=== PATIENT | female | born 1955 | race Caucasian/White ===

== ENCOUNTER 2017-11-11 10:59 | Emergency (ER) | payer OTHER ==
[~2017-11-11] VITALS: Ht 162.6 cm; Wt 72.6 kg
--- NOTE | 2017-11-11 11:22 | NUR ---
DR. FLORES AT BEDSIDE FOR EVAL AND SPEAKING TO FAMILY REGARDING POC.
--- NOTE | 2017-11-11 11:27 | NUR ---
DR. FLORES AT BEDSIDE FOR GTUBE REPLACEMENT.
--- NOTE | 2017-11-11 11:29 | NUR ---
16FR GTUBE PLACED PER DR. FLORES
[2017-11-11] MEDS ORDERED: DIATR MEGLU/DIATRIZOATE SODIUM 30 ML BOTTLE (GASTROGRAPHIN) PO ONE (11:30)
--- NOTE | 2017-11-11 12:27 | NUR ---
Patient discharged to home in stable condition. Written and verbal after care instructions given TO DAUGHTER. DAUGHTER verbalizes understanding of instruction. G TUBE INTACT CONFIRMED VIA XRAY, NAD NOTED ON PT & EN ROUTE BACK TO SNF VIA BLS.
[2017-11-11 12:30] VITALS: BP 120/82
== END 2017-11-11 12:32 ==
LOC: ER 11:04
DX: Z43.1 Encounter for attention to gastrostomy (principal); I10 Essential (primary) hypertension; K21.9 Gastro-esophageal reflux disease without esophagitis
CPT/HCPCS: 43760; 74018; 99284; A4606; Q9963; Z7610

== ENCOUNTER 2017-12-18 12:09 | Inpatient (IN) | payer OTHER ==
[~2017-12-18] VITALS: Ht 162.6 cm; Wt 72.6 kg
--- NOTE | 2017-12-18 12:20 | NUR ---
LEIGHTON LAMB FROM CARE FACILITY DUE TO INCREASED TRACHEAL SECRETIONS. PATIENT IS OBTUNDED. DAUGHTER AT BEDSIDE. VITAL SIGNS CHECKED AND RECORDED. 02 SAT 100% ON COOL AEROSOL. NO FACIAL GRIMACE NOTED. KEPT COMFORTABLE. WILL CONTINUE TO MONITOR ACCORDINGLY.
--- NOTE | 2017-12-18 12:30 | NUR ---
DR. TORRES AT BEDSIDE FOR EVAL.
[2017-12-18 13:23] LABS: BASOPHILS # (AUTO) 0.1 /CMM (0.0-0.2); EOSINOPHILS % (AUTO) 2.4 % (0.0-6.0); HEMATOCRIT 40 % (33-45); HEMOGLOBIN 13.1 g/dL (11.5-14.8); LYMPHOCYTES # (AUTO) 1.6 /CMM (0.8-4.8); LYMPHOCYTES % (AUTO) 20.4 % (20.0-44.0); MEAN CORPUSCULAR HGB CONC 33 g/dl (31.0-36.0); MEAN CORPUSCULAR VOLUME 87 fL (82-100); MONOCYTES # (AUTO) 0.4 /CMM (0.1-1.30); MONOCYTES % (AUTO) 4.8 % (2.0-12.0); NEUTROPHILS # (AUTO) 5.8 /CMM (1.8-8.9); NEUTROPHILS % (AUTO) 71.4 % (43.0-81.0); PLATELET COUNT (AUTO) 215 /CMM (150-450); RED BLOOD CELL COUNT(AUTO) 4.59 MIL/uL (4.0-5.2); WHITE BLOOD COUNT (AUTO) 8.1 K/uL (4.3-11.0)
[2017-12-18] MEDS ORDERED: PIPERACILLIN /TAZOBACTAM 3.375 G in IV D5W 50 ML IV ONE (13:30)
[2017-12-18] MEDS ORDERED: VANCOMYCIN 1 GM in IV D5W 250 ML IV ONE (13:30)
[2017-12-18 13:33] LABS: ALANINE AMINOTRANSFERASE 44 U/L (12-78); ALKALINE PHOSPHATASE 99 U/L (46-116); ASPARTATE AMINOTRANSFERASE 24 U/L (15-37); BILIRUBIN,DIRECT 0.1 mg/dL (0.0-0.2); BILIRUBIN,TOTAL 0.3 mg/dL (0.2-1.0); CALCIUM, SERUM 9.1 mg/dL (8.5-10.1); CARBON DIOXIDE 28 mmol/L (21-32); CHLORIDE 105 mmol/L (98-107); CREATININE 0.3 mg/dL (0.6-1.3); GLUCOSE 117 mg/dL (74-106); POTASSIUM 3.7 mmol/L (3.5-5.1); SODIUM SERUM 142 mmol/L (136-145); TOTAL PROTEIN, SERUM 7.3 g/dL (6.4-8.2); UREA NITROGEN, BLOOD 17 mg/dL (7-18)
[2017-12-18 13:42] LABS: BILIRUBIN,URINE Negative (NEGATIVE); BLOOD, URINE Negative Ery/uL (NEGATIVE); COLOR,URINE Yellow (YELLOW); KETONES,URINE Negative (NEGATIVE); LEUKOCYTE ESTERASE ,URINE Large (NEGATIVE); NITRITE, URINE Negative (NEGATIVE); PROTEIN,URINE Negative (NEGATIVE); UGLUCOSE Negative (NEGATIVE); UROBILINOGEN,URINE 0.2 EU/dL (0.2)
[2017-12-18 13:43] LABS: APPEARANCE,URINE SLIGHTLY CLOUDY (CLEAR)
[2017-12-18 13:44] LABS: BACTERIA,URINE 1+ /HPF (None Seen); SQUAMOUS EPITHELIAL CELL,UR Few /HPF (None Seen)
[2017-12-18] MEDS ORDERED: IV NS 0.9% 1,000 ML IV PRN (13:56)
[2017-12-18] MEDS ORDERED: ACETAMINOPHEN 650 MG/SUPP.RECT RC PRN (14:00)
[2017-12-18] MEDS ORDERED: MAG HYDROX/AL HYDROX/SIMETH 30 ML UDC PO PRN (14:00)
[2017-12-18] MEDS ORDERED: HYDROCODONE/APAP 5/325MG 1 EACH TABLET PO PRN (14:00)
[2017-12-18] MEDS ORDERED: MAGNESIUM HYDROXIDE 30 ML UDC PO PRN (14:00)
[2017-12-18] MEDS ORDERED: PIPERACILLIN /TAZOBACTAM 3.375 G in IV D5W 50 ML IV SCH (14:00)
[2017-12-18] MEDS ORDERED: ALBUTEROL FS 2.5 MG/3 ML VIAL.NEB CONTNEB ONE (14:00)
[2017-12-18] MEDS ORDERED: ONDANSETRON HCL/PF 4 MG/2 ML VIAL IVP PRN (14:00)
[2017-12-18] MEDS ORDERED: MORPHINE SULFATE INJ 4 MG/ML DISP.SYRIN IV PRN (14:00)
[2017-12-18] MEDS ORDERED: LORAZEPAM INJ 2 MG/ML VIAL IV PRN (14:00)
[2017-12-18] MEDS ORDERED: ENOXAPARIN SODIUM 40 MG/0.4 ML DISP.SYRIN SQ SCH (14:30)
--- NOTE | 2017-12-18 15:18 | NUR ---
REPORT GIVEN TO DAGOBERTO PRESCOTT FOR JERMAINE, PATIENT GOING TO ROOM 321-2 T.
[2017-12-18 16:00] VITALS: BP 108/68
--- NOTE | 2017-12-18 16:00 | NUR ---
MENTAL HEALTH COORDINATORMILLING/POLISHING OPERATOR NOTES RECEIVED PT FROM ER WITH DX OF PNA.PT IS OBTUNDED AND OPENS HER EYES ONLY.ON COOL AEROSOL WITH PORTEX 7 O2 AT 5L.ON TELE SR 91.NO S/S OF PAIN OR DISTRESS.SUCTIONED THICK WHITE SECRETIONS FROM TRACH AND MOUTH OFTEN.ORAL CARE RENDERED.ON BEDREST.WITH SACRAL REDNESS ONLY.WITH GT IN PLACE.IV H/L PRESENT ON LT HAND AND RT AC.DAUGHTERS AT BEDSIDE.CALL LIGHT PLACED WITHIN REACH.
[2017-12-18] MEDS ORDERED: FEE PK DOSING 1 MIN EA MC ONE (16:14)
[2017-12-18] MEDS: ENOXAPARIN SODIUM 40 MG/0.4 ML DISP.SYRIN SQ SCH (17:06)
[2017-12-18] MEDS ORDERED: FERR220S6 PO (17:28)
[2017-12-18] MEDS ORDERED: LIDO30AD10 TP (17:28)
[2017-12-18] MEDS ORDERED: LEVO100T9 GT (17:28)
[2017-12-18] MEDS ORDERED: LEVE100S GT (17:28)
[2017-12-18] MEDS ORDERED: HEPA500013 SQ (17:28)
[2017-12-18] MEDS ORDERED: DOCU-141 GT (17:36)
[2017-12-18] MEDS ORDERED: BISA-79 PR (17:36)
[2017-12-18] MEDS ORDERED: FERR220S6 GT (17:36)
[2017-12-18] MEDS ORDERED: NA P133E RC (17:36)
[2017-12-18] MEDS ORDERED: ACET-73 GT (17:46)
[2017-12-18] MEDS ORDERED: AMIN30LI2 GT (17:46)
[2017-12-18] MEDS ORDERED: PHEN32.43 GT (17:46)
[2017-12-18] MEDS ORDERED: OMEP20CA10 GT (17:46)
[2017-12-18] MEDS ORDERED: MULT-594 GT (17:46)
[2017-12-18] MEDS ORDERED: DEXT15DR6 EACHEYE (17:46)
[2017-12-18] MEDS ORDERED: ALBU2.5V38 IH (17:46)
[2017-12-18] MEDS ORDERED: OXYB5TAB11 GT (17:46)
[2017-12-18] MEDS ORDERED: SCOP1PAT17 TD (17:46)
[2017-12-18] MEDS ORDERED: MAGN400O21 GT (17:46)
[2017-12-18] MEDS ORDERED: ASCO-310 GT (17:51)
[2017-12-18] MEDS ORDERED: CRAN1CAP10 GT (17:51)
[2017-12-18] MEDS ORDERED: TOPI25TA49 GT (17:51)
[2017-12-18] MEDS ORDERED: [UNRECOGNIZED DRUG - CODE] GT (17:51)
[2017-12-18] MEDS: JEVITY 1.2 CAL 1,000 ML BOTTLE GT SCH (18:35)
--- NOTE | 2017-12-18 19:10 | NUR ---
RN OPENING NOTES PT OBTUNDED AND TRACH TO COOL AEROSOL. NO APPARENT S/S OF PAIN DISTRESS OR SOB AT THIS TIME. PT HAS IV ON LEFT HAND #20 RUNNING NS@75ML/HR AND IV RIGHT AC #20. PT HAS GTUBE FEEDING JEVITY@44ML/HR. PT TOLERATING WELL. PT TELE MONITORED SINUS RHYTHM. SAFETY PRECAUTIONS IN PLACE, BED IN LOWEST LOCKED POSITION, X3 SIDE RAILS UP. WILL CONTINUE TO MONITOR.
[2017-12-18] MEDS: VALPROIC ACID 250 MG/5 ML UDC GT SCH (19:33)
[2017-12-18] MEDS: PHENOBARBITAL 30 MG TABLET GT SCH (19:33)
[2017-12-18] MEDS: PROSTAT (PYXIS) 30 ML UDC GT SCH (19:33)
--- NOTE | 2017-12-18 19:41 | NUR ---
PT RESTING COMFORTABLE IN BED WITH HOB ELEVATED.ONGOING IVF,NS AND GT FEEDING INFUSING WELL.TOLERATING FEEDING WELL.SUCTIONED SECRETIONS BY MOUTH AND TRACH OFTEN.WILL MONITOR.
--- NOTE | 2017-12-18 19:52 | NUR ---
Received pt on 28% CA, TRACHED, pt is stable no sob noted suctioned mod amounts of tick white sec. pt is stable no sob or distress noted at this time. Addendum: 12/18/17 at 4 by MEJIA HERNANDEZ RT Amended: Links added.
[2017-12-18 20:13] VITALS: BP 136/100
[2017-12-18] MEDS: OXYBUTYNIN CHLORIDE 5 MG TABLET GT SCH (20:30)
[2017-12-18] MEDS: PIPERACILLIN /TAZOBACTAM 3.375 G in IV D5W 100 ML IV SCH (20:37)
[2017-12-19] VITALS: BP 128/76
[2017-12-19] MEDS: VANCOMYCIN 0.75 GM in IV D5W 250 ML IV SCH ×2 (00:57→12:15)
[2017-12-19 04:00] VITALS: BP 114/70
[2017-12-19] MEDS: PIPERACILLIN /TAZOBACTAM 3.375 G in IV D5W 100 ML IV SCH ×3 (04:40→21:15)
[2017-12-19] MEDS: OXYBUTYNIN CHLORIDE 5 MG TABLET GT SCH ×3 (04:42→21:17)
--- NOTE | 2017-12-19 06:42 | NUR ---
RN CLOSING NOTES PT OBTUNDED AND TRACH TO COOL AEROSOL. NO APPARENT S/S OF PAIN DISTRESS OR SOB OVERNIGHT. PT HAS IV ON LEFT HAND #20 RUNNING NS@75ML/HR AND IV RIGHT AC #20. PT HAS GTUBE FEEDING JEVITY@44ML/HR. PT TOLERATING WELL. PT TELE MONITORED SINUS RHYTHM. SAFETY PRECAUTIONS IN PLACE, BED IN LOWEST LOCKED POSITION, X3 SIDE RAILS UP. WILL ENDORSE TO DAY SHIFT FOR CONTINUITY OF CARE.
--- NOTE | 2017-12-19 07:15 | NUR ---
Tele/RN - Assessment Patient obtunded, no s/s of pain, not in any form of distress, on cool aerosol 28% FiO2, trached with Portex 7 secured and intact. Tele shows SR. Will order MALORIE bed for skin management. Pt turned and repositioned q2h and PRN if condition permits. Continue IVF NS at 75 ml/hr to maintain hydration, tolerating Jevity at 44 ml/hr, no residual seen. Fall and aspiration precautions maintained. Will continue to monitor closely.
[2017-12-19 07:20] LABS: BASOPHILS # (AUTO) 0.1 /CMM (0.0-0.2); BASOPHILS % (AUTO) 0.8 % (0.0-2.0); EOSINOPHILS % (AUTO) 1.9 % (0.0-6.0); HEMATOCRIT 38 % (33-45); HEMOGLOBIN 12.3 g/dL (11.5-14.8); LYMPHOCYTES # (AUTO) 1.2 /CMM (0.8-4.8); LYMPHOCYTES % (AUTO) 14.4 % (20.0-44.0); MEAN CORPUSCULAR HGB CONC 33 g/dl (31.0-36.0); MEAN CORPUSCULAR VOLUME 87 fL (82-100); MONOCYTES # (AUTO) 0.5 /CMM (0.1-1.30); MONOCYTES % (AUTO) 6.3 % (2.0-12.0); NEUTROPHILS # (AUTO) 6.2 /CMM (1.8-8.9); NEUTROPHILS % (AUTO) 76.6 % (43.0-81.0); PLATELET COUNT (AUTO) 184 /CMM (150-450); RED BLOOD CELL COUNT(AUTO) 4.35 MIL/uL (4.0-5.2); WHITE BLOOD COUNT (AUTO) 8.1 K/uL (4.3-11.0)
[2017-12-19 07:35] LABS: ALBUMIN 2.5 g/dL (3.4-5.0); BILIRUBIN,TOTAL 0.3 mg/dL (0.2-1.0); CALCIUM, SERUM 8.4 mg/dL (8.5-10.1); CREATININE 0.4 mg/dL (0.6-1.3); PHOSPHORUS 3.7 mg/dL (2.5-4.9); POTASSIUM 3.6 mmol/L (3.5-5.1); TOTAL PROTEIN, SERUM 6.4 g/dL (6.4-8.2)
[2017-12-19 08:00] VITALS: BP 121/70
[2017-12-19] MEDS ORDERED: IV 1/2NS 1000 ML 1,000 ML IV ONE (08:00)
[2017-12-19] MEDS: LEVETIRACETAM SOL (5 ML) 100 MG/ML UDC GT SCH ×3 (08:33→16:43)
[2017-12-19] MEDS: PHENOBARBITAL 30 MG TABLET GT SCH ×2 (08:33→16:44)
[2017-12-19] MEDS: PANTOPRAZOLE 40 MG VIAL IV SCH (08:34)
[2017-12-19] MEDS: TOPIRAMATE 25 MG TABLET GT SCH ×2 (08:34→16:44)
[2017-12-19] MEDS: VALPROIC ACID 250 MG/5 ML UDC GT SCH ×2 (08:34→16:43)
[2017-12-19] MEDS: LEVOTHYROXINE SODIUM 100 MCG TABLET GT SCH (08:34)
[2017-12-19] MEDS: PROSTAT (PYXIS) 30 ML UDC GT SCH (09:00)
--- NOTE | 2017-12-19 09:44 | NUR ---
WOUND CARE CONSULT: PT PRESENTS WITH SACRAL SCARRING, PRESENT ON ADMISSION. PT IS INCONTINENT. ALL SKIN PROTECTION MEASURES DISCUSSED WITH NURSING STAFF. FIRST STEP LOW AIRLOSS MATTRESS ON ORDER. WILL SEE PRN. TALBOT IN AGREEMENT WITH PLAN OF CARE. Addendum: 12/19/17 at 0949 by GILBERT ROBERTS WNDNU Amended: Links added.
[2017-12-19] MEDS: PROSOURCE / PROSTAT (PYXIS) 30 ML UDC GT SCH (10:18)
[2017-12-19 12:00] VITALS: BP 135/93
[2017-12-19] MEDS: ACETYLCYSTEINE 10% SOLN 400 MG/4 ML VIAL NEB SCH (15:21)
[2017-12-19 16:00] VITALS: BP 136/66
[2017-12-19] MEDS: LACTOBACILLUS RHAMNOSUS GG 1 EACH CAP.SPRINK GT SCH (16:44)
[2017-12-19] MEDS: JEVITY 1.2 CAL 1,000 ML BOTTLE GT SCH (16:46)
[2017-12-19] MEDS: Z GUARD REMEDY 2 OZ OINT TP PRN (16:47)
--- NOTE | 2017-12-19 17:05 | NUR ---
Tele/RN - Closing Notes No new events seen, remain afebrile, no s/s of pain, tele shows SR, tolerating tube feeding well. All needs attended and met. Daughter at bedside updated on plan of care. Will continue with current medical management.
--- NOTE | 2017-12-19 19:40 | NUR ---
CLINICAL NURSE OCCUPATIONAL MEDICINE NOTE: PATIENT RESTING IN BED, NO ACUTE DISTRESS NOTED. BREATHING EVEN AND UNLABORED, NO SOB NOTED. COOL AEROSOL IN PLACE. IV TO LEFT HAND AND RAC IN PLACE. G-TUBE IN PLACE, WITH NO RESIDUAL, INFUSING JEVITY AT 44ML/HR. HOB ELEVATED. BED LOCKED AND IN LOWEST POSITION, CALL LIGHT IN REACH. WILL CONTINUE TO MONITOR
[2017-12-19 20:00] VITALS: BP 129/65
[2017-12-19] MEDS: ENOXAPARIN SODIUM 40 MG/0.4 ML DISP.SYRIN SQ SCH (21:17)
[2017-12-20] MEDS: ACETAMINOPHEN 325 MG TABLET PO PRN (00:03)
--- NOTE | 2017-12-20 00:05 | NUR ---
ELECTRONIC ENGINEERING TECHNICIAN NOTE: NOTED PATIENT GRUNTING, PATIENT DAUGHTER AT BEDSIDE AND REQUEST FOR TYLENOL FOR PAIN. TYLENOL 650MG GIVE VIA G-TUBE, WILL CONTINUE TO MONITOR.
[2017-12-20] MEDS: ACETYLCYSTEINE 10% SOLN 400 MG/4 ML VIAL NEB SCH ×3 (00:25→17:23)
[2017-12-20] MEDS: VANCOMYCIN 0.75 GM in IV D5W 250 ML IV SCH ×2 (01:06→14:50)
[2017-12-20] MEDS: OXYBUTYNIN CHLORIDE 5 MG TABLET GT SCH ×3 (04:39→20:45)
[2017-12-20] MEDS: PIPERACILLIN /TAZOBACTAM 3.375 G in IV D5W 100 ML IV SCH ×2 (04:43→12:25)
--- NOTE | 2017-12-20 06:15 | NUR ---
CHILD NURSE NOTE: PATIENT RESTING IN BED, NO ACUTE DISTRESS NOTED. BREATHING EVEN AND UNLABORED, NO SOB NOTED. COOL AEROSOL IN PLACE. IV TO LEFT HAND AND RAC IN PLACE. G-TUBE IN PLACE, WITH NO RESIDUAL, INFUSING JEVITY AT 44ML/HR. HOB ELEVATED. BED LOCKED AND IN LOWEST POSITION, CALL LIGHT IN REACH. WILL ENDORSE TO DAY NURSE TO CONTINUE WITH PLAN OF CARE.
--- NOTE | 2017-12-20 07:15 | NUR ---
Tele/RN - Assessment Patient awake, no s/s of pain, not in any form of distress, on cool aerosol 28% FiO2, trached with Portex 7 secured and intact. Tele shows SR. KCI mattress in place for skin management. All pressure ulcer prevention measures noted to be in place, repositioned per protocol. Patient tolerating TF Jevity at 44 ml/hr, no residual seen. Fall and aspiration precautions maintained. Will continue with current plan of care.
[2017-12-20 07:43] LABS: BASOPHILS % (AUTO) 0.5 % (0.0-2.0); EOSINOPHILS % (AUTO) 3.4 % (0.0-6.0); HEMATOCRIT 35 % (33-45); HEMOGLOBIN 11.6 g/dL (11.5-14.8); LYMPHOCYTES # (AUTO) 1.2 /CMM (0.8-4.8); LYMPHOCYTES % (AUTO) 18.4 % (20.0-44.0); MEAN CORPUSCULAR HGB CONC 34 g/dl (31.0-36.0); MEAN CORPUSCULAR VOLUME 86 fL (82-100); MONOCYTES # (AUTO) 0.4 /CMM (0.1-1.30); MONOCYTES % (AUTO) 6.6 % (2.0-12.0); NEUTROPHILS # (AUTO) 4.6 /CMM (1.8-8.9); NEUTROPHILS % (AUTO) 71.1 % (43.0-81.0); PLATELET COUNT (AUTO) 171 /CMM (150-450); RED BLOOD CELL COUNT(AUTO) 4.02 MIL/uL (4.0-5.2); WHITE BLOOD COUNT (AUTO) 6.5 K/uL (4.3-11.0)
[2017-12-20 07:50] LABS: CALCIUM, SERUM 8.3 mg/dL (8.5-10.1); CREATININE 0.4 mg/dL (0.6-1.3); POTASSIUM 3.8 mmol/L (3.5-5.1)
[2017-12-20] MEDS: IV 1/2NS 1000 ML 1,000 ML IV PRN (07:57)
[2017-12-20 08:00] VITALS: BP 146/101
[2017-12-20] MEDS: PHENOBARBITAL 30 MG TABLET GT SCH ×2 (08:05→16:52)
[2017-12-20] MEDS: PANTOPRAZOLE 40 MG VIAL IV SCH (08:05)
[2017-12-20] MEDS: LEVOTHYROXINE SODIUM 100 MCG TABLET GT SCH (08:05)
[2017-12-20] MEDS: LEVETIRACETAM SOL (5 ML) 100 MG/ML UDC GT SCH ×3 (08:05→16:52)
[2017-12-20] MEDS: TOPIRAMATE 25 MG TABLET GT SCH ×2 (08:05→16:52)
[2017-12-20] MEDS: LACTOBACILLUS RHAMNOSUS GG 1 EACH CAP.SPRINK GT SCH ×2 (08:05→16:52)
[2017-12-20] MEDS: VALPROIC ACID 250 MG/5 ML UDC GT SCH ×2 (08:05→16:52)
[2017-12-20] MEDS: PROSOURCE / PROSTAT (PYXIS) 30 ML UDC GT SCH (08:06)
--- NOTE | 2017-12-20 13:53 | NUR ---
M/S RN - Vancomycin trough Stat vanco trough ordered at 12:28 today. Follow up call made to lab, told me that audioprosthologist is on the way. Pharmacist Mirela notified of the delay in the blood draw.
[2017-12-20 16:00] VITALS: BP 146/101
[2017-12-20] MEDS: JEVITY 1.2 CAL 1,000 ML BOTTLE GT SCH (16:54)
[2017-12-20] MEDS: Z GUARD REMEDY 2 OZ OINT TP PRN (16:55)
--- NOTE | 2017-12-20 17:45 | NUR ---
MS/RN - Closing Notes No significant change in condition seen, remain afebrile, no s/s of pain, not in any form of distress. Continue IVF to maintain hydration, Zosyn and Vanco for PNA and UTI. Daughter at bedside updated on treatment plan. Anticipate discharge tomorrow. Per daughter, do not send patient back to [facility]. manager terminal aware of request. Will continue with current medical management.
--- NOTE | 2017-12-20 19:20 | NUR ---
MS/RN OPENING NOTES PT RECEIVED WITH EYES CLOSED, OPENS TO TOUCH. OBTUNDED. ON COOL AEROSOL 28% AT 5LPM. PORTEX 7. GT FEEDING RUNNING JEVITY AT 44ML/HR. IV TO LEFT HAND RUNNING IVF ORDERED. NO S/S OF INFILTRATION NOTED. HOB ELEVATED FOR ASPIRATION PRECAUTIONS. BED IN LOW/LOCKED POSITION WITH SIDE RAILS UP X3. WILL CONTINUE TO MONITOR
[2017-12-20 20:00] VITALS: BP 111/61
[2017-12-20] MEDS: ENOXAPARIN SODIUM 40 MG/0.4 ML DISP.SYRIN SQ SCH (20:51)
[2017-12-20] MEDS ORDERED: MEROPENEM 1 G in IV NS 0.9% 100 ML IV ONE (21:00)
[2017-12-20] MEDS ORDERED: MEROPENEM 500 MG in IV NS 0.9% 50 ML IV SCH (21:00)
--- NOTE | 2017-12-21 | NUR ---
MS/RN NOTES REPORT GIVEN TO RN, SAMUEL FOR CONTINUITY OF CARE. DAUGHTER AT BEDSIDE REQUESTING PRN TYLENOL FOR PT. RN MADE AWARE, COMPUTER SYSTEM DOWN AT TIME OF REPORT
--- NOTE | 2017-12-21 01:00 | NUR ---
MS RN NOTES GRIMACING,PER DAUGHTER ,SHE'S IN PAIN.MEDICATED WITH TYLENOL 650MG /GT ORDERED. AND PER DAUGHTERS REQUEST.
--- NOTE | 2017-12-21 01:00 | NUR ---
MS RN NOTES RECEIVED REPORT FROM KENYON PEREZ,PATIENT ON BED,ON TRACH TO COOL AEROSOL 28% AT 5L.PORTEX #7.HOB ELEVATED,GT FEEDING OF JEVITY AT 44ML/HR RATE VIA GT,IVF IN PROGRESS 1/2 NS AT 75ML/HR RATE INFUSING VIA IV PUMP ON LEFT HAND.DAUGHTER AT BEDSIDE.WILL CONTINUE TO MONITOR STATUS
[2017-12-21] MEDS: IV 1/2NS 1000 ML 1,000 ML IV PRN ×2 (01:28→23:41)
[2017-12-21] MEDS: ACETAMINOPHEN 325 MG TABLET PO PRN (01:30)
[2017-12-21] MEDS: ACETYLCYSTEINE 10% SOLN 400 MG/4 ML VIAL NEB SCH ×4 (01:30→23:57)
[2017-12-21] MEDS ORDERED: VANCOMYCIN 1 GM in IV D5W 250 ML IV SCH (02:00)
[2017-12-21] MEDS: OXYBUTYNIN CHLORIDE 5 MG TABLET GT SCH ×3 (05:18→21:00)
[2017-12-21] MEDS: MEROPENEM 1 G in IV NS 0.9% 100 ML IV SCH ×3 (05:18→21:00)
--- NOTE | 2017-12-21 06:47 | NUR ---
MS RN NOTES CALM AND QUIET THRU OUT SHIFT,HOB KEPT ELEVATED FOR ASPIRATION PRECAUTION.SUCTION MUCUS NEEDED,FOR AIRWAY CLEARANCE.SACRAL REDNESS TREAT WITH REMEDY FOR SKIN MANAGEMENT.REPOSITION PER PROTOCOL.IN NO ACUTE DISTRESS.WILL ENDORSE TO DAY NURSE FOR JERMAINE.
--- NOTE | 2017-12-21 07:10 | NUR ---
MSRN OPENING NOTES. PT RECEIVED OBTUNDED, EYES OPEN. PT WITH O2 VIA TRACH WITH COOL AEROSOL AT 28% AND 5LPM. PT AUSCULTATED DIMINISHED L R AND UPPER AIRWAY RHONCHI, PT SUCTIONED. PT WITH IVC INTACT AND OPERATIONAL WITH 1/2NS PER RX. PT WITH G.TUBE INTACT AND OPERATIONAL WITH JEVITY AT 44CC/HR. PT REPOSITIONED TO RIGHT OBLIQUE AND OFFLOADED. PT BED IN LOWEST LOCKED POSITION WITH HANDRAILSX4, SPEC MATTRESS AND HOB ELEVATED. WILL CONTINUE POC.
[2017-12-21 07:27] LABS: BASOPHILS % (AUTO) 0.7 % (0.0-2.0); EOSINOPHILS % (AUTO) 3.8 % (0.0-6.0); HEMATOCRIT 34 % (33-45); HEMOGLOBIN 11.3 g/dL (11.5-14.8); LYMPHOCYTES # (AUTO) 1.1 /CMM (0.8-4.8); LYMPHOCYTES % (AUTO) 18.2 % (20.0-44.0); MEAN CORPUSCULAR HGB CONC 33 g/dl (31.0-36.0); MEAN CORPUSCULAR VOLUME 87 fL (82-100); MONOCYTES # (AUTO) 0.4 /CMM (0.1-1.30); MONOCYTES % (AUTO) 7.1 % (2.0-12.0); NEUTROPHILS # (AUTO) 4.1 /CMM (1.8-8.9); NEUTROPHILS % (AUTO) 70.2 % (43.0-81.0); PLATELET COUNT (AUTO) 162 /CMM (150-450); RED BLOOD CELL COUNT(AUTO) 3.94 MIL/uL (4.0-5.2); WHITE BLOOD COUNT (AUTO) 5.9 K/uL (4.3-11.0)
[2017-12-21 07:50] LABS: CREATININE 0.4 mg/dL (0.6-1.3); POTASSIUM 3.6 mmol/L (3.5-5.1)
[2017-12-21 07:56] LABS: CALCIUM, SERUM 8.3 mg/dL (8.5-10.1)
[2017-12-21] MEDS ORDERED: MERO1VIA IV (08:14)
[2017-12-21 08:20] VITALS: BP 125/73
[2017-12-21] MEDS: LEVETIRACETAM SOL (5 ML) 100 MG/ML UDC GT SCH ×3 (08:48→16:34)
[2017-12-21] MEDS: VALPROIC ACID 250 MG/5 ML UDC GT SCH ×2 (08:48→16:34)
[2017-12-21] MEDS: PHENOBARBITAL 30 MG TABLET GT SCH ×2 (08:48→16:34)
[2017-12-21] MEDS: LEVOTHYROXINE SODIUM 100 MCG TABLET GT SCH (08:48)
[2017-12-21] MEDS: LACTOBACILLUS RHAMNOSUS GG 1 EACH CAP.SPRINK GT SCH ×2 (08:48→16:34)
[2017-12-21] MEDS: PANTOPRAZOLE 40 MG VIAL IV SCH (08:48)
[2017-12-21] MEDS: TOPIRAMATE 25 MG TABLET GT SCH ×2 (08:48→16:34)
[2017-12-21] MEDS: PROSOURCE / PROSTAT (PYXIS) 30 ML UDC GT SCH (08:50)
--- NOTE | 2017-12-21 14:53 | NUR ---
MSRN PT WITH FAMILY AT BEDSIDE. PT AND FAMILY WITHOUT CONCERN OR COMPLAINT AT THIS TIME.
[2017-12-21 16:00] VITALS: BP 115/64
[2017-12-21] MEDS: JEVITY 1.2 CAL 1,000 ML BOTTLE GT SCH (16:45)
--- NOTE | 2017-12-21 18:11 | NUR ---
MSRN CLOSING NOTES. PT REMAINS OBTUNDED, EYES OPEN. FAMILY AT BEDSIDE. PT WITH O2 VIA TRACH WITH COOL AEROSOL AT 28% AND 5LPM, MODERATE MUCUS PRODUCTION. PT WITH IVC INTACT AND OPERATIONAL WITH 1/2NS PER RX. PT WITH G.TUBE INTACT AND OPERATIONAL WITH JEVITY AT 50CC/HR. PT REPOSITIONED AND OFFLOADED Q2HR. PT BED IN LOWEST LOCKED POSITION WITH HANDRAILSX4, SPEC MATTRESS AND HOB ELEVATED. ALL DAY NURSE DUTIES ATTENDED TO AND PT AND FAMILY ARE WITHOUT CONCERN OR COMPLAINT AT THIS TIME.
--- NOTE | 2017-12-21 19:15 | NUR ---
MS/RN OPENING NOTES PT RECEIVED, APPEARS COMFORTABLE IN BED. OPENS EYES SPONTANEOUSLY. OBTUNDED. ON COOL AEROSOL VIA TPIECE AT 5LPM. SPO2 MONITOR AT BEDSIDE SHOWING 99%. HOB ELEVATED. GT FEEDING RUNNING ORDERED. IV TO LEFT HAND RUNNING IVF ORDERED. BED IN LOW/LOCKED POSITION, CALL LIGHT IN REACH. BILATERAL UPPER SIDE RAILS IN PLACE. WILL CONTINUE TO MONITOR
[2017-12-21 20:00] VITALS: BP 157/101
[2017-12-21] MEDS: ENOXAPARIN SODIUM 40 MG/0.4 ML DISP.SYRIN SQ SCH (21:02)
[2017-12-22] MEDS: OXYBUTYNIN CHLORIDE 5 MG TABLET GT SCH ×3 (06:10→20:53)
[2017-12-22] MEDS: MEROPENEM 1 G in IV NS 0.9% 100 ML IV SCH ×3 (06:11→20:53)
--- NOTE | 2017-12-22 06:57 | NUR ---
MS/RN CLOSING NOTES PT WITH EYES OPEN. HOB ELEVATED. ON 5LPM O2 VIA TPIECE, COOL AEROSOL 28%. BREATHING EVEN AND UNLABORED. SUCTIONED PRN. SPO2 MONITOR AT BEDSIDE SHOWING 100%. IV TO LEFT HAND INFUSING MERREM AT THIS TIME. GT FEEDING RUNNING ORDERED, NO RESIDUALS NOTED. NO SIGNFICANT CHANGES OVERNIGHT. TURNED/REPOSITIONED Q2H. HEELS OFFLOADED. BED REMAINS IN LOW/LOCKED POSITION WITH CALL LIGHT IN REACH, SIDE RAILS UPX3. WILL ENDORSE TO DAY SHIFT RN JERMAINE.
--- NOTE | 2017-12-22 07:03 | NUR ---
MS RN NOTES PATIENT WITH EYES OPEN, HOB ELEVATED. BREATHING EVEN AND UNLABORED. ON 5LPM O2 VIA TPIECE, COOL AEROSOL 28%. SPO2 MONITOR AT BEDSIDE SHOWING 100%. IV ACCESS PATENT AND INTACT, NO REDNESS OR SWELLING NOTED. GTUBE FEEDING RUNNING ORDERED, NO RESIDUALS NOTED. HEELS OFFLOADED. SAFETY MEASURES IN PLACE. CALL LIGHT WITHIN REACH. WILL CONTINUE TO MONITOR ACCORDINGLY.
[2017-12-22 07:18] LABS: CALCIUM, SERUM 8.5 mg/dL (8.5-10.1); CREATININE 0.4 mg/dL (0.6-1.3); POTASSIUM 4.1 mmol/L (3.5-5.1)
[2017-12-22] MEDS: ALBUTEROL FS 2.5 MG/3 ML VIAL.NEB NEB PRN ×2 (07:57→14:52)
[2017-12-22 08:00] VITALS: BP 117/70
[2017-12-22] MEDS: ACETYLCYSTEINE 10% SOLN 400 MG/4 ML VIAL NEB SCH ×3 (08:04→23:09)
[2017-12-22] MEDS: PHENOBARBITAL 30 MG TABLET GT SCH ×2 (08:31→17:07)
[2017-12-22] MEDS: LACTOBACILLUS RHAMNOSUS GG 1 EACH CAP.SPRINK GT SCH ×2 (08:31→17:07)
[2017-12-22] MEDS: PANTOPRAZOLE 40 MG VIAL IV SCH (08:31)
[2017-12-22] MEDS: TOPIRAMATE 25 MG TABLET GT SCH ×2 (08:31→17:07)
[2017-12-22] MEDS: VALPROIC ACID 250 MG/5 ML UDC GT SCH ×2 (08:31→17:07)
[2017-12-22] MEDS: LEVOTHYROXINE SODIUM 100 MCG TABLET GT SCH (08:31)
[2017-12-22] MEDS: PROSOURCE / PROSTAT (PYXIS) 30 ML UDC GT SCH (08:32)
[2017-12-22] MEDS: LEVETIRACETAM SOL (5 ML) 100 MG/ML UDC GT SCH ×3 (08:32→17:07)
--- NOTE | 2017-12-22 11:12 | NUR ---
MS RN NOTES SEEN AND EVALUATED BY KINA PAREDES WITH NEW ORDERS MADE, NOTED AND CARRIED OUT.
[2017-12-22] MEDS: JEVITY 1.2 CAL 1,000 ML BOTTLE GT SCH (14:57)
[2017-12-22 16:00] VITALS: BP 132/82
[2017-12-22] MEDS: ACETAMINOPHEN 325 MG TABLET PO PRN (17:14)
--- NOTE | 2017-12-22 17:14 | NUR ---
MS RN NOTES NOTED FACIAL GRIMACING, PAIN 2/10. TYLENOL GIVEN. WILL CONTINUE TO MONITOR PATIENT.
--- NOTE | 2017-12-22 19:00 | NUR ---
MS RN NOTES PATIENT WITH EYES OPEN, HOB ELEVATED. BREATHING EVEN AND UNLABORED. NO ACUTE DISTRESS NOTED. NO FACIAL GRIMACING NOTED. ON 5LPM O2 VIA TPIECE, COOL AEROSOL 28%. SPO2 MONITOR AT BEDSIDE SHOWING 100%. IV ACCESS PATENT AND INTACT, NO REDNESS OR SWELLING NOTED. GTUBE FEEDING RUNNING ORDERED, NO RESIDUALS NOTED. MEDICATIONS GIVEN, NO ASE NOTED. NEEDS ATTENDED AND ANTICIPATED. KEPT CLEAN , DRY AND COMFORTABLE. SAFETY MEASURES IN PLACE. CALL LIGHT WITHIN REACH. ENDORSED TO NIGHT NURSE FOR CONTINUITY OF CARE.
--- NOTE | 2017-12-22 19:10 | NUR ---
RN OPENING NOTES RECEIVED PT IN BED, EYES OPEN, NO FACIAL GRIMACING NTOED, TRACH CONNECTED AND IN PLACE WITH COOL AEROSOL, PT WITH GTF RUNNING ORDERED, IVF INFUSING WELL VIA IVP ON LEFT HAND. ALL PATIENT'S NEEDS ATTENDED TO. KEPT PT SAFE AND DRY, CLEAN AND COMFORTABLE. PLACED BED IN LOW POSITION, SAFETY PRECAUTIONS IN PLACE. WILL CONTINUE TO MONITOR PT.
[2017-12-22 20:00] VITALS: BP 119/62
[2017-12-22] MEDS: IV 1/2NS 1000 ML 1,000 ML IV PRN (20:21)
[2017-12-22] MEDS: ENOXAPARIN SODIUM 40 MG/0.4 ML DISP.SYRIN SQ SCH (20:55)
[2017-12-23] MEDS: MEROPENEM 1 G in IV NS 0.9% 100 ML IV SCH ×3 (04:54→20:20)
[2017-12-23] MEDS: OXYBUTYNIN CHLORIDE 5 MG TABLET GT SCH ×3 (04:54→20:20)
[2017-12-23 06:24] LABS: BASOPHILS # (AUTO) 0.1 /CMM (0.0-0.2); BASOPHILS % (AUTO) 0.9 % (0.0-2.0); EOSINOPHILS % (AUTO) 2.9 % (0.0-6.0); HEMATOCRIT 36 % (33-45); LYMPHOCYTES # (AUTO) 1.5 /CMM (0.8-4.8); LYMPHOCYTES % (AUTO) 21.5 % (20.0-44.0); MEAN CORPUSCULAR HGB CONC 33 g/dl (31.0-36.0); MEAN CORPUSCULAR VOLUME 87 fL (82-100); MONOCYTES # (AUTO) 0.6 /CMM (0.1-1.30); MONOCYTES % (AUTO) 8.1 % (2.0-12.0); NEUTROPHILS # (AUTO) 4.8 /CMM (1.8-8.9); NEUTROPHILS % (AUTO) 66.6 % (43.0-81.0); PLATELET COUNT (AUTO) 190 /CMM (150-450); WHITE BLOOD COUNT (AUTO) 7.2 K/uL (4.3-11.0)
[2017-12-23 06:35] LABS: CALCIUM, SERUM 8.4 mg/dL (8.5-10.1); CREATININE 0.3 mg/dL (0.6-1.3); POTASSIUM 4.1 mmol/L (3.5-5.1)
--- NOTE | 2017-12-23 06:41 | NUR ---
RN CLOSING NOTES PATIENT IN BED, ASLEEP BUT EASILY AROUSABLE, NO SOB NOTED, IN NO ACUTE DISTRESS AT THIS TIME, IVF INFUSING WELL ORDERED. GTF RUNNING ORDERED. ALL PATIENT'S NEEDS ATTENDED TO, TURNED AND REPOSITIONED Q2H. NO CHANGES IN CONDITION, PLACED BED IN LOW POSITION AND LOCKED IN PLACE. WILL ENDORSE TO AM SHIFT NURSE FOR CONTINUITY OF CARE.
--- NOTE | 2017-12-23 07:05 | NUR ---
RN OPENING NOTES PATIENT LYING IN BED, EYES CLOSED, EASILY AROUSABLE, HOB ELEVATED. NO SOB NOTED. NO ACUTE DISTRESS . IVF INFUSING WELL ORDERED, NO REDNESS OR SWELLING NOTED. GTUBE FEEDING RUNNING ORDERED. SAFETY MEASURES IN PLACE. CALL LIGHT WITHIN REACH. WILL CONTINUE TO MONITOR ACCORDINGLY.
[2017-12-23] MEDS: ACETYLCYSTEINE 10% SOLN 400 MG/4 ML VIAL NEB SCH ×3 (07:36→23:09)
[2017-12-23] MEDS: IPRATROPIUM NEB FS 0.5 MG/2.5 ML AMPUL.NEB NEB PRN ×2 (07:37→15:34)
[2017-12-23] MEDS: ALBUTEROL FS 2.5 MG/3 ML VIAL.NEB NEB PRN ×2 (07:37→15:34)
[2017-12-23 08:00] VITALS: BP 120/75
[2017-12-23] MEDS: LACTOBACILLUS RHAMNOSUS GG 1 EACH CAP.SPRINK GT SCH ×2 (08:11→16:43)
[2017-12-23] MEDS: PROSOURCE / PROSTAT (PYXIS) 30 ML UDC GT SCH (08:11)
[2017-12-23] MEDS: PANTOPRAZOLE 40 MG VIAL IV SCH (08:11)
[2017-12-23] MEDS: VALPROIC ACID 250 MG/5 ML UDC GT SCH ×2 (08:11→16:43)
[2017-12-23] MEDS: TOPIRAMATE 25 MG TABLET GT SCH ×2 (08:11→16:43)
[2017-12-23] MEDS: LEVOTHYROXINE SODIUM 100 MCG TABLET GT SCH (08:11)
[2017-12-23] MEDS: PHENOBARBITAL 30 MG TABLET GT SCH ×2 (08:11→16:43)
[2017-12-23] MEDS: LEVETIRACETAM SOL (5 ML) 100 MG/ML UDC GT SCH ×3 (08:11→16:43)
[2017-12-23] MEDS: Z GUARD REMEDY 2 OZ OINT TP PRN (09:13)
[2017-12-23] MEDS: JEVITY 1.2 CAL 1,000 ML BOTTLE GT SCH (12:36)
[2017-12-23 16:00] VITALS: BP 126/84
[2017-12-23] MEDS: IV 1/2NS 1000 ML 1,000 ML IV PRN (18:58)
--- NOTE | 2017-12-23 19:00 | NUR ---
RN CLOSING NOTES PATIENT LYING IN BED, EYES OPEN, HOB ELEVATED. NO SOB NOTED. NO ACUTE DISTRESS NOTED . NO FACIAL GRIMACING NOTED. IVF INFUSING WELL ORDERED, NO REDNESS OR SWELLING NOTED. GTUBE FEEDING RUNNING ORDERED. DUE MEDICATIONS GIVEN, NO ASE NOTED. KEPT CLEAN DRY AND COMFORTABLE. REPOSITIONED Q2 HOURS AND PRN. NEEDS ATTENDED AND ANTICIPATED. SAFETY MEASURES IN PLACE. CALL LIGHT WITHIN REACH. ENDORSED TO NIGHT NURSE FOR CONTINUITY OF CARE.
--- NOTE | 2017-12-23 19:05 | NUR ---
RN MS OPENING NOTES RECEIVED PATIENT IN BED, AWAKE EYES OPEN, PATIENT OBTUNDED, HEAD OF BED ELEVATED FOR ASPIRATION PRECAUTIONS, RESPIRATIONS EVEN AND UNLABORED WITH EQUAL RISE AND FALL OF CHEST, ON TRACH WITH COOL AEROSOL, TRACH COLLAR IN PLACE, CONTINUOUS PULSE OX AT BEDSIDE, 02 FLOWING WELL ORDERED SPO2 99% 5L. GTUBE FEEDING JEVITY 1.[address] AND FLOWING ORDERED, GTUBE INTACT IN PLACE DRESSING IS CLEAN AND INTACT.NO RESIDUALS PRESENT UPON ASPIRATION. TOLERATING FEEDING WELL AT THIS TIME. IV SITE TO LEFT HAND #22G INTACT AND PATENT, NO REDNESS NO INFILTRATION PRESET, IVF RUNNING ORDERED. SAFETY PRECAUTIONS IN PLACE, LOW BED AND LOCKED, BED ALARM IN PLACE, ORIENTED TO STAFF. ALL NEEDS ATTENDED AT THIS TIME, WILL CONTINUE TO MONITOR. HEELS FLOATING WITH PILLOWS TOWEL ROLLS TO RIGHT HAND AND OFFLOADED. OFFLOADED TO SIDE FOR SACRAL SKIN MANAGEMENT AND PREVENTION. WILL CONTINUE TO PROVIDE CARE AND REPOSITION.
[2017-12-23 20:00] VITALS: BP 139/86
[2017-12-23] MEDS: ENOXAPARIN SODIUM 40 MG/0.4 ML DISP.SYRIN SQ SCH (20:22)
[2017-12-24] MEDS: MEROPENEM 1 G in IV NS 0.9% 100 ML IV SCH ×3 (04:59→21:01)
[2017-12-24] MEDS: OXYBUTYNIN CHLORIDE 5 MG TABLET GT SCH ×3 (04:59→21:01)
[2017-12-24] MEDS: JEVITY 1.2 CAL 1,000 ML BOTTLE GT SCH (05:26)
--- NOTE | 2017-12-24 06:45 | NUR ---
RN MS CLOSING NOTES PATIENT IN BED AWAKE OBTUNDED, EYES OPEN, RESPIRATIONS EVEN AND UNLABORED WITH EQUAL RISE AND FALL OF CHEST, APPEARS TO BE COMFORTABLE AT THIS TIME, NO FACIAL GRIMACING OR MOANS PRESENT, ON TRAC WITH COOL AEROSOL AT 5L O2, 28% FI02, PORTEX 7, NECK TIE CLEAN AND DRY, TRACH DRESSING CLEAN AND DRY, GTUBE DRESSING CLEAN AND DRY, ON CONTINUOUS PULSE OX SPO2 AT 99%, SUCTIONED NEEDED AND TOLERATED WELL, GTUBE FLUSHED, WITH NO RESIDUALS TOLERATED FEEDING WELL. HEADS OF BED ELEVATED FOR ASPIRATION PRECAUTIONS, REPOSITIONED TO OFFLOAD SACRAL AND HEELS, PILLOW TO OFFLOAD ARMS, AND BETWEEN KNEES, SACRAL DRESSING CHANGED AND REMAINS INTACT, SKIN ALSO REMAINS INTACT TO SACRAL AREA.LEFT HADN IV SIE #22G INTACT AND PATENT, NO REDNESS, NO INFILTRATION PRESENT, IV MERREM ATB CURRENTLY IS RUNNING.SAFETY PRECAUTIONS IN PLACE, ALL NEEDS ATTENDED AT THIS TIME, PATIENT REMAINS COMFORTABLE AND SAFE, WILL CONTINUE TO MONITOR AND ENDORSE TO NEXT SHIFT.
[2017-12-24] MEDS: ACETYLCYSTEINE 10% SOLN 400 MG/4 ML VIAL NEB SCH ×3 (07:23→22:51)
[2017-12-24] MEDS: ALBUTEROL FS 2.5 MG/3 ML VIAL.NEB NEB PRN (07:24)
[2017-12-24 07:40] LABS: CALCIUM, SERUM 8.4 mg/dL (8.5-10.1); CREATININE 0.4 mg/dL (0.6-1.3); POTASSIUM 4.2 mmol/L (3.5-5.1)
[2017-12-24 07:41] LABS: BASOPHILS # (AUTO) 0.1 /CMM (0.0-0.2); BASOPHILS % (AUTO) 0.8 % (0.0-2.0); EOSINOPHILS % (AUTO) 2.5 % (0.0-6.0); HEMATOCRIT 37 % (33-45); HEMOGLOBIN 12.2 g/dL (11.5-14.8); LYMPHOCYTES # (AUTO) 1.2 /CMM (0.8-4.8); LYMPHOCYTES % (AUTO) 16.5 % (20.0-44.0); MEAN CORPUSCULAR HGB CONC 33 g/dl (31.0-36.0); MEAN CORPUSCULAR VOLUME 86 fL (82-100); MONOCYTES # (AUTO) 0.4 /CMM (0.1-1.30); MONOCYTES % (AUTO) 5.4 % (2.0-12.0); NEUTROPHILS # (AUTO) 5.5 /CMM (1.8-8.9); NEUTROPHILS % (AUTO) 74.8 % (43.0-81.0); PLATELET COUNT (AUTO) 192 /CMM (150-450); RED BLOOD CELL COUNT(AUTO) 4.29 MIL/uL (4.0-5.2); WHITE BLOOD COUNT (AUTO) 7.4 K/uL (4.3-11.0)
--- NOTE | 2017-12-24 07:45 | NUR ---
pt received on aerosol via trach with charted settings. airway patent. trach secure via trach tie. pt responsive to pain. suctioned a small amount of thick white secretions. pt receiving breathing tx q8 at this time. pt hob at 30 degrees. suctioned oral secretion from pts mouth Addendum: 12/24/17 at 0746 by CHARISSE BELTRE RT Amended: Links added.
--- NOTE | 2017-12-24 07:52 | NUR ---
MS RN OPENING NOTES RECEIVED PT FROM NIGHTSHIFT RN IN STABLE CONDITION. PT IS OBTUNDENT. OPENS HER EYES SPONTANEOUSLY, AND IS RESPONSIVE TO TACTILE STIMULI. TRACH NOTED TO COOL AEROSOL. SETTING CHECKED FOR ACCURACY (PORTEX #7, FIO2 28%, 02 5L). PT TOLERATING SETTINGS WELL. CONTINUOUS PULSE OX NOTED. PT SATING WELL AT 97%. IV NOTED TO BE PATENT AND INTACT. PT TOLERATING NS INFUSION WELL. GTUBE NOTED TO BE PATENT AND INTACT. NO RESIDUALS ASPIRATED AT THIS TIME. PLACEMENT VERIFIED VIA AUSCULTATION. PT TOLERATING GTUBE FEEDINGS WELL. BED IN LOW LOCKED POSITION, SIDE RAILS UP X3, CALL LIGHT WITHIN REACH, BED ALARM ON. WILL CONTINUE TO MONITOR
[2017-12-24 08:00] VITALS: BP 131/76
--- NOTE | 2017-12-24 08:00 | NUR ---
TUBE FEEDING HELD PER ORDER.PT TOLERATING FEEDINGS WELL. NO RESIDUALS ASPIRATED AT THIS TIME
[2017-12-24] MEDS: PANTOPRAZOLE 40 MG VIAL IV SCH (08:56)
[2017-12-24] MEDS: VALPROIC ACID 250 MG/5 ML UDC GT SCH ×2 (08:56→16:31)
[2017-12-24] MEDS: LACTOBACILLUS RHAMNOSUS GG 1 EACH CAP.SPRINK GT SCH ×2 (08:56→16:31)
[2017-12-24] MEDS: LEVETIRACETAM SOL (5 ML) 100 MG/ML UDC GT SCH ×3 (08:56→16:31)
[2017-12-24] MEDS: PHENOBARBITAL 30 MG TABLET GT SCH ×2 (08:57→16:31)
[2017-12-24] MEDS: LEVOTHYROXINE SODIUM 100 MCG TABLET GT SCH (08:57)
[2017-12-24] MEDS: TOPIRAMATE 25 MG TABLET GT SCH ×2 (08:57→16:31)
[2017-12-24] MEDS: PROSOURCE / PROSTAT (PYXIS) 30 ML UDC GT SCH (08:57)
--- NOTE | 2017-12-24 12:03 | NUR ---
TUBE FEEDING RESUMED ORDERED
[2017-12-24] MEDS: ACETAMINOPHEN 325 MG TABLET PO PRN (12:44)
[2017-12-24 16:00] VITALS: BP 139/77
--- NOTE | 2017-12-24 18:47 | NUR ---
MS RN CLOSING NOTES PT REMAINS STABLE. ALL NEEDS MET THROUGHOUT SHIFT AND ORDERS CARRIED OUT ACCORDINGLY. ALL DUE MEDS GIVEN. WOUND SKIN CARE RENDERED ORDERED. PT CONTINUES TOLERATING IV IN FUSION WELL. NO REDNESS OR SIGNS OF INFILTRATION NOTED TO SITE. SHE CONTINUES TOLERATING GTUBE FEEDINGS AT ORDERED WEIGHT WELL. NO RESIDUALS AT THIS TIME. NO EPISODES OF N/V/D. PT REMAINS STABLE WITH TRACH. PRN TRACH CARE AND SUCTIONING RENDERED. BREATHING REMAINS EVEN AND UNLABORED. PT REPOSITIONED AND TURNED PER HOSPITAL PROTOCOL. SAFETY MEASURES REMAIN IN PLACE. WILL ENDORSE TO NIGHTSHIFT RN FOR JERMAINE
--- NOTE | 2017-12-24 19:25 | NUR ---
RN OPENING NOTES PATIENT RECEIVED IN BED, NOTED TO BE IN NO DISTRESS, RECEIVING IVF ORDERED AND IS INFUSING WELL. GTUBE FEEDING ON GOING, PT'S HOB ELEVATED, ASPIRATION PRECAUTIONS IN PLACE. PT TOLERATING GTF WELL. ALL PATIENT'S NEEDS ATTENDED TO AT THIS TIME. PT'S DAUGHTER AT BEDSIDE. WILL CONTINUE TO MONITOR PT.
[2017-12-24 20:00] VITALS: BP 131/74
[2017-12-24] MEDS: ENOXAPARIN SODIUM 40 MG/0.4 ML DISP.SYRIN SQ SCH (21:04)
[2017-12-25] MEDS: ACETAMINOPHEN 325 MG TABLET PO PRN (02:24)
[2017-12-25] MEDS: IV 1/2NS 1000 ML 1,000 ML IV PRN ×2 (02:32→16:28)
[2017-12-25] MEDS: MEROPENEM 1 G in IV NS 0.9% 100 ML IV SCH ×3 (05:07→20:48)
[2017-12-25] MEDS: OXYBUTYNIN CHLORIDE 5 MG TABLET GT SCH ×3 (05:09→20:48)
[2017-12-25] MEDS: JEVITY 1.2 CAL 1,000 ML BOTTLE GT SCH (05:27)
--- NOTE | 2017-12-25 06:59 | NUR ---
RN CLOSING NOTES PATIENT IN BED, OBTUNDED, IN NO DISTRESS. PT WITH GTF INFUSING WELL WITH NO RESIDUAL NOTED.ALL DUE MEDICATION GIVEN. TURNED AND REPOSITIONED [id number]. ALL PATIENT'S NEEDS ATTENDED TO THROUGHOUT THE SHIFT. IVF INFUSING WELL VIA IVP ON LEFT HAND. MERREM RUNNING EXTENDED INFUSION. ASPIRATION AND SAFETY PRECAUTIONS IN PLACE. WILL ENDORSE TO AM SHIFT NURSE FOR CONTINUITY OFCARE.
[2017-12-25] MEDS: ACETYLCYSTEINE 10% SOLN 400 MG/4 ML VIAL NEB SCH ×3 (07:01→23:08)
--- NOTE | 2017-12-25 07:27 | NUR ---
RT NOTE PT RECEIVED TRACHED ON COOL AEROSOL. NO RESP DISTRESS OR SOB NOTED. BREATHING TX GIVEN, NO ADVERSE REACTIONS NOTED. PT SUCTIONED: SMALL THIN WHITE SECRETIONS. WILL CONT TO MONITOR PT. Addendum: 12/25/17 at 0728 by JANIS YOST RT Amended: Links added.
--- NOTE | 2017-12-25 07:39 | NUR ---
MS RN OPENING NOTES RECEIVED PT FROM NIGHTSHIFT RN IN STABLE CONDITION. PT IS OBTUNDENT. OPENS HER EYES SPONTANEOUSLY, AND IS RESPONSIVE TO TACTILE STIMULI. TRACH NOTED TO COOL AEROSOL. SETTING CHECKED FOR ACCURACY (PORTEX #7, FIO2 28%, 02 5L). PT TOLERATING SETTINGS WELL. CONTINUOUS PULSE OX NOTED. PT SATING WELL AT 100%. IV NOTED TO BE PATENT AND INTACT. PT TOLERATING NS INFUSION WELL. GTUBE NOTED TO BE PATENT AND INTACT. NO RESIDUALS ASPIRATED AT THIS TIME. PLACEMENT VERIFIED VIA AUSCULTATION. PT TOLERATING GTUBE FEEDINGS WELL. BED IN LOW LOCKED POSITION, SIDE RAILS UP X3, CALL LIGHT WITHIN REACH, BED ALARM ON. WILL CONTINUE TO MONITOR
[2017-12-25 08:00] VITALS: BP 136/77
[2017-12-25 08:25] LABS: BASOPHILS # (AUTO) 0.1 /CMM (0.0-0.2); BASOPHILS % (AUTO) 0.9 % (0.0-2.0); EOSINOPHILS % (AUTO) 2.2 % (0.0-6.0); HEMATOCRIT 38 % (33-45); HEMOGLOBIN 12.7 g/dL (11.5-14.8); LYMPHOCYTES # (AUTO) 1.7 /CMM (0.8-4.8); LYMPHOCYTES % (AUTO) 23.1 % (20.0-44.0); MEAN CORPUSCULAR HGB CONC 33 g/dl (31.0-36.0); MEAN CORPUSCULAR VOLUME 86 fL (82-100); MONOCYTES # (AUTO) 0.5 /CMM (0.1-1.30); MONOCYTES % (AUTO) 7.1 % (2.0-12.0); NEUTROPHILS # (AUTO) 4.9 /CMM (1.8-8.9); NEUTROPHILS % (AUTO) 66.7 % (43.0-81.0); PLATELET COUNT (AUTO) 227 /CMM (150-450); RED BLOOD CELL COUNT(AUTO) 4.48 MIL/uL (4.0-5.2); WHITE BLOOD COUNT (AUTO) 7.4 K/uL (4.3-11.0)
[2017-12-25 08:27] LABS: CALCIUM, SERUM 8.8 mg/dL (8.5-10.1); CREATININE 0.4 mg/dL (0.6-1.3); POTASSIUM 4.2 mmol/L (3.5-5.1)
[2017-12-25] MEDS: LEVETIRACETAM SOL (5 ML) 100 MG/ML UDC GT SCH ×3 (09:19→16:29)
[2017-12-25] MEDS: VALPROIC ACID 250 MG/5 ML UDC GT SCH ×2 (09:19→16:29)
[2017-12-25] MEDS: LACTOBACILLUS RHAMNOSUS GG 1 EACH CAP.SPRINK GT SCH ×2 (09:19→16:28)
[2017-12-25] MEDS: LEVOTHYROXINE SODIUM 100 MCG TABLET GT SCH (09:20)
[2017-12-25] MEDS: TOPIRAMATE 25 MG TABLET GT SCH ×2 (09:20→16:29)
[2017-12-25] MEDS: PHENOBARBITAL 30 MG TABLET GT SCH ×2 (09:20→16:28)
[2017-12-25] MEDS: PANTOPRAZOLE 40 MG VIAL IV SCH (09:20)
[2017-12-25] MEDS: PROSOURCE / PROSTAT (PYXIS) 30 ML UDC GT SCH (09:21)
[2017-12-25 16:00] VITALS: BP 135/75
--- NOTE | 2017-12-25 18:46 | NUR ---
MS RN CLOSING NOTES PT REMAINS STABLE. ALL NEEDS MET THROUGHOUT SHIFT AND ORDERS CARRIED OUT ACCORDINGLY. ALL DUE MEDS GIVEN. WOUND SKIN CARE RENDERED ORDERED. PT CONTINUES TOLERATING IV FUSION WELL. NO REDNESS OR SIGNS OF INFILTRATION NOTED TO SITE. SHE CONTINUES TOLERATING GTUBE FEEDINGS AT ORDERED RATE WELL. NO RESIDUALS AT THIS TIME. NO EPISODES OF N/V/D. PT REMAINS STABLE WITH TRACH. PRN TRACH CARE AND SUCTIONING RENDERED. BREATHING REMAINS EVEN AND UNLABORED. PT REPOSITIONED AND TURNED PER HOSPITAL PROTOCOL. SAFETY MEASURES REMAIN IN PLACE. WILL ENDORSE TO NIGHTSHIFT RN FOR JERMAINE
--- NOTE | 2017-12-25 19:20 | NUR ---
RN OPENING NOTES RECEIVED PATIENT IN BED, CONTINUES TO RECEIVE GTF ORDERED, IVF INFUSING WELL ORDERED. PT IS TOLERATING WELL. ALL PATIENT'S NEEDS ATTENDED TO AT THIS TIME. PULSE OX AT BEDSIDE WITH O2 SAT: 99% AND HR 85 BPM. PT SAFE AND DRY, CLEAN AND COMFORTABLE. WILL CONTINUE TO MONITOR PT.
[2017-12-25 20:00] VITALS: BP 125/78
[2017-12-25] MEDS: ENOXAPARIN SODIUM 40 MG/0.4 ML DISP.SYRIN SQ SCH (20:49)
--- NOTE | 2017-12-25 23:33 | NUR ---
PT RCVD POLI'D ON COOL AEROSOL WITH CHARTED SETTINGS. SX DONE. PT TRACH PATENT AND SECURE. NO RESP DISTRESS OR SOB NOTED AT THIS TIME. AMBU BAG AT BEDSIDE. WILL CONTINUE TO MONITOR. Addendum: 12/25/17 at 2334 by JORGE LAGOS RT Amended: Links added.
[2017-12-26] MEDS: MEROPENEM 1 G in IV NS 0.9% 100 ML IV SCH ×3 (04:48→20:47)
[2017-12-26] MEDS: OXYBUTYNIN CHLORIDE 5 MG TABLET GT SCH ×3 (04:48→20:46)
[2017-12-26] MEDS: JEVITY 1.2 CAL 1,000 ML BOTTLE GT SCH (05:33)
--- NOTE | 2017-12-26 06:22 | NUR ---
RN CLOSING NOTES PT IN BED, EYES OPEN, NOTED WITH NO DISTRESS AT THIS TIME. PT ON TRACH WITH COOL AEROSOL, O2 SAT WNL. RECEIVING GTF ORDERED, NO RESIDUAL NOTED AND TOLERATING FEEDING WELL, ASPIRATION PRECAUTION IN PLACE. RECEIVING IVF ORDERED, INFUSING WELL. IV PERIPHERAL LINE INTACT AND PATENT WITH NO S/S OF INFECTION OR INFILTRATION. ALL PATIENT'S NEEDS ATTENDED TO THROUGHOUT THE SHIFT.WILL ENDORSE TO AM SHIFT NURSE FOR CONTINUITY OF CARE.
[2017-12-26 07:05] LABS: BASOPHILS # (AUTO) 0.1 /CMM (0.0-0.2); BASOPHILS % (AUTO) 0.8 % (0.0-2.0); HEMATOCRIT 37 % (33-45); HEMOGLOBIN 12.2 g/dL (11.5-14.8); LYMPHOCYTES # (AUTO) 1.2 /CMM (0.8-4.8); LYMPHOCYTES % (AUTO) 16.7 % (20.0-44.0); MEAN CORPUSCULAR HGB CONC 33 g/dl (31.0-36.0); MEAN CORPUSCULAR VOLUME 86 fL (82-100); MONOCYTES # (AUTO) 0.4 /CMM (0.1-1.30); MONOCYTES % (AUTO) 6.3 % (2.0-12.0); NEUTROPHILS # (AUTO) 5.1 /CMM (1.8-8.9); NEUTROPHILS % (AUTO) 74.2 % (43.0-81.0); PLATELET COUNT (AUTO) 204 /CMM (150-450); RED BLOOD CELL COUNT(AUTO) 4.27 MIL/uL (4.0-5.2); WHITE BLOOD COUNT (AUTO) 6.9 K/uL (4.3-11.0)
[2017-12-26] MEDS: ACETYLCYSTEINE 10% SOLN 400 MG/4 ML VIAL NEB SCH ×3 (07:14→23:53)
[2017-12-26 07:16] LABS: CALCIUM, SERUM 8.3 mg/dL (8.5-10.1); CREATININE 0.4 mg/dL (0.6-1.3); PHOSPHORUS 3.8 mg/dL (2.5-4.9); POTASSIUM 3.7 mmol/L (3.5-5.1)
--- NOTE | 2017-12-26 07:48 | NUR ---
RN OPENING NOTES RECEIVED PT. PT STABLE AND RESTING IN BED. PT OBTUNDED. NO S/S OF RESP DISTRESS/SOB, O2 SAT WNL. TRACH, PORTEX 7, CONNECTED TO COOL AEROSOL WITH O2 AT 5L/M. PT DOES NOT APPEAR TO BE IN PAIN AT THIS TIME. GT IN PLACE AND PATENT, FEEDING OF JEVITY AT 50 CC/HR. IV ACCESS LOCATED ON L HAND 22 GINFUSING 1/2 NS AT 75 ML/HR. PT'S FAMILY TO MAKE SELECTION OF SNF FOR D/C, WILL UPDATE CM. SAFETY MEASURES IN PLACE, CALL LIGHT WITHIN REACH. WILL CONTINUE TO MONITOR.
[2017-12-26 08:00] VITALS: BP 173/96
[2017-12-26] MEDS: TOPIRAMATE 25 MG TABLET GT SCH ×2 (08:25→16:23)
[2017-12-26] MEDS: PHENOBARBITAL 30 MG TABLET GT SCH ×2 (08:25→16:23)
[2017-12-26] MEDS: LEVETIRACETAM SOL (5 ML) 100 MG/ML UDC GT SCH ×3 (08:25→16:23)
[2017-12-26] MEDS: LEVOTHYROXINE SODIUM 100 MCG TABLET GT SCH (08:25)
[2017-12-26] MEDS: LACTOBACILLUS RHAMNOSUS GG 1 EACH CAP.SPRINK GT SCH ×2 (08:25→16:23)
[2017-12-26] MEDS: VALPROIC ACID 250 MG/5 ML UDC GT SCH ×2 (08:26→16:23)
[2017-12-26] MEDS: PROSOURCE / PROSTAT (PYXIS) 30 ML UDC GT SCH (08:26)
[2017-12-26] MEDS: PANTOPRAZOLE 40 MG VIAL IV SCH (08:26)
--- NOTE | 2017-12-26 12:00 | NUR ---
RN NOTES DAUGHTER AT BEDSIDE. FAMILY IS CONT TO SEARCH FOR SUBACUTE PLACEMENT FOR PT POST-D/C. WILL CONTINUE TO MONITOR.
[2017-12-26 16:00] VITALS: BP 163/88
--- NOTE | 2017-12-26 18:33 | NUR ---
RN CLOSING NOTES PT IN BED RESTING. NO S/S OF RESP DISTRESS/SOB. TRACH ON COOL AEROSOL WITH O2 5L/MIN. FAMILY CONTINUING TO DECIDE ON D/C PLACEMENT, CM AWARE. SAFETY MEASURES IN PLACE, CALL LIGHT WITHIN REACH. WILL ENDORSE TO AUTOMOTIVE PROJECT ENGINEER FOR JERMAINE.
--- NOTE | 2017-12-26 19:30 | NUR ---
MS RN NOTES RECEIVED RESTING COMFORTABLY ON BED,ON TRACH TO COOL AEROSOL 28%.PORTEX # 7,O2 AT 5L.SUCTION TRACH NEEDED.ON IVF 1/2 NS AT 75ML/HR RATE INFUSING ON LEFT HAND VIA IV PUMP.ON GT FEEDING JEVITY AT 50ML/HR RATE,NO RESIDUAL AT THIS TIME.ON KCI MATTRESS FOR SKIN MANAGEMENT.ISOLATION PRECAUTION FOR KLEBSELLA SPUTUM.WILL CONTINUE TO MONITOR STATUS.
[2017-12-26] MEDS: IV 1/2NS 1000 ML 1,000 ML IV PRN (19:44)
[2017-12-26 20:00] VITALS: BP 109/63
[2017-12-26] MEDS: ENOXAPARIN SODIUM 40 MG/0.4 ML DISP.SYRIN SQ SCH (20:47)
--- NOTE | 2017-12-26 21:00 | NUR ---
MS RN NOTES DUE MEDS GIVEN PER GT,IV ABX HUNG INFUSING VIA IV PUMP ON LEFT HAND
[2017-12-27] MEDS: OXYBUTYNIN CHLORIDE 5 MG TABLET GT SCH ×3 (04:52→21:32)
[2017-12-27] MEDS: MEROPENEM 1 G in IV NS 0.9% 100 ML IV SCH ×3 (04:52→21:32)
--- NOTE | 2017-12-27 06:56 | NUR ---
MS RN NOTES NO SIGNIFICANT CHANGE IN STATUS.TRACH TO COOL AEROSOL TOLERATED WELL.GT FEEDING TOLERATED WELL.WITH X3 BOWEL MOVEMENT,NO DIARRHEA NOTED.REPOSITION PER PROTOCOL.IN NO ACUTE DISTRESS.ENDORSE TO DAY NURSE FOR JERMAINE.
--- NOTE | 2017-12-27 07:00 | NUR ---
MS RN OPENING NOTE RECEIVED PT IN BED, OBTUNDED. NO SIGNS OF ACUTE DISTRESS NOTED AT THIS TIME. PT HAS TRACH WITH COOL AEROSOL, FIO2 28%, 5LPM BREATHING IS EVEN AND UNLABORED AND TOLERATING WELL. L HAND #22G IV INFUSING ORDERED WITHOUT REDNESS OR SWELLING. PT TOLERATING CURRENT G-TUBE FEEDING WHICH IS SCHEDULED TO BE OFF AT 0800. ALL NEEDS ATTENDED TO, BED IS LOCKED AND IN LOWEST POSITION, SIDE RAILS UP X3, BED ALARM ON, CALL LIGHT WITHIN REACH.
[2017-12-27 08:00] VITALS: BP 138/69
[2017-12-27] MEDS: ACETYLCYSTEINE 10% SOLN 400 MG/4 ML VIAL NEB SCH ×3 (08:15→23:49)
[2017-12-27] MEDS: PROSOURCE / PROSTAT (PYXIS) 30 ML UDC GT SCH (08:33)
[2017-12-27] MEDS: LEVETIRACETAM SOL (5 ML) 100 MG/ML UDC GT SCH ×3 (08:34→16:35)
[2017-12-27] MEDS: TOPIRAMATE 25 MG TABLET GT SCH ×2 (08:34→16:35)
[2017-12-27] MEDS: PANTOPRAZOLE 40 MG VIAL IV SCH (08:34)
[2017-12-27] MEDS: PHENOBARBITAL 30 MG TABLET GT SCH ×2 (08:34→16:35)
[2017-12-27] MEDS: LACTOBACILLUS RHAMNOSUS GG 1 EACH CAP.SPRINK GT SCH ×2 (08:34→16:35)
[2017-12-27] MEDS: VALPROIC ACID 250 MG/5 ML UDC GT SCH ×2 (08:34→16:35)
[2017-12-27] MEDS: LEVOTHYROXINE SODIUM 100 MCG TABLET GT SCH (08:34)
[2017-12-27] MEDS: IV 1/2NS 1000 ML 1,000 ML IV PRN ×2 (10:28→23:48)
[2017-12-27] MEDS: ACETAMINOPHEN 325 MG TABLET PO PRN (12:11)
[2017-12-27] MEDS: JEVITY 1.2 CAL 1,000 ML BOTTLE GT SCH (12:13)
[2017-12-27 16:00] VITALS: BP 123/69
--- NOTE | 2017-12-27 16:00 | NUR ---
MS RN TRACH CARE TRACH CARE PROVIDED WITH RT VELARDE AT THE BEDSIDE PER PROTOCOL. INNER CANNULA PORTEX #7 CHANGED, SKIN CLEANSED WITH NS, DRESSING CHANGED, PT SUCTIONED. SKIN IS INTACT AND WITHOUT REDNESS.
--- NOTE | 2017-12-27 18:26 | NUR ---
MS RN CLOSING NOTE PT IN BED, OBTUNDED. NO SIGNS OF ACUTE DISTRESS AT THIS TIME. PT HAS TRACH WITH COOL AEROSOL, FIO2 %28 AND 5LPM. BREATHING IS EVEN AND UNLABORED. L HAND #22G IV IS INFUSING 1/2 NS @ 75ML/HR WITHOUT REDNESS OR SWELLING. ADLS PROVIDED, PT ASSISTED TO TURN AND REPOSITION Q2H. PT TOLERATED CURRENT G-TUBE ORDERED DURING THE SHIFT. ASPIRATION AND CONTACT PRECAUTIONS MAINTAINED. ALL NEEDS ATTENDED TO, BED IS LOCKED AND IN LOWEST POSITION, SIDE RAILS UP X3, BED ALARM ON, CALL LIGHT WITHIN REACH. WILL ENDORSE TO [employer] LIAISON RN FOR CONTINUITY OF CARE.
--- NOTE | 2017-12-27 19:32 | NUR ---
MS RN NOTES ON BED,OPEN EYES,OBTUNDED.ON TRACH TO COOL AEROSOL 28% AT 5LITERS,PORTEX #7.WITH IVF 1/2 NS AT 75ML/HR RATE,SITE PATENT ON LEFT HAND.INCONTINENT OF URINE.GT FEEDING OF JEVITY AT 50ML/HR RATE.NO RESIDUAL NOTED.ISOLATION PRECAUTION OBSERVED FOR ESBL/KLEBSIELLA SPUTUM.[employer]CI MATTRESS IN USED FOR SKIN MANAGEMENT.REPOSITION PER PROTOCOL.WILL CONTINUE TO MONITOR STATUS.
[2017-12-27 20:00] VITALS: BP 122/76
[2017-12-27] MEDS: ENOXAPARIN SODIUM 40 MG/0.4 ML DISP.SYRIN SQ SCH (21:33)
[2017-12-27 22:00] VITALS: BP 122/76
--- NOTE | 2017-12-27 22:30 | NUR ---
MS RN NOTES SEEN BY YUE CHATTERJEE,MERREM IV DISCONTINUED.
[2017-12-27] MEDS: ALBUTEROL FS 2.5 MG/3 ML VIAL.NEB NEB PRN (23:49)
[2017-12-28] MEDS: ACETAMINOPHEN 325 MG TABLET PO PRN ×3 (00:57→17:34)
--- NOTE | 2017-12-28 00:57 | NUR ---
MS RN NOTES FACIAL GRIMACE NOTED,TYLENOL 650MG/GT GIVEN
[2017-12-28] MEDS: OXYBUTYNIN CHLORIDE 5 MG TABLET GT SCH ×3 (05:15→21:57)
--- NOTE | 2017-12-28 05:30 | NUR ---
MS RN NOTES MORNING CARE RENDERED WITH TAMMIE MERIDA,TOLERATED WELL
--- NOTE | 2017-12-28 06:00 | NUR ---
MS RN NOTES NEW SALINE LOCK #22 PLACE ON RIGHT FOREARM,SAME IVF INFUSING
--- NOTE | 2017-12-28 07:21 | NUR ---
MS RN NOTES NO SIGNIFICANT CHANGE IN STATUS.AWAITING PLACEMENT AT ACUTE REHAB.IN NO ACUTE DISTRESS.ENDORSED TO SUN PRESCOTT FOR JERMAINE
--- NOTE | 2017-12-28 07:25 | NUR ---
MS RN OPENING NOTE RECEIVED PT IN BED, OBTUNDED. NO ACUTE DISTRESS NOTED AT THIS TIME. PT HAS TRACH #7 PORTEX WITH COOL AEROSOL, FIO2 28%, 5LPM. BREATHING IS EVEN AND UNLABORED. R FA #22G IV IS INFUSING ORDERED WITHOUT REDNESS OR SWELLING. PT TOLERATING CURRENT G-TUBE FEEDING. ASPIRATION AND CONTACT PRECAUTIONS MAINTAINED. BED IS LOCKED AND IN LOWEST POSITION, SIDE RAILS UP X3, BED ALARM ON, CALL LIGHT WITHIN REACH.
[2017-12-28] MEDS: ALBUTEROL FS 2.5 MG/3 ML VIAL.NEB NEB PRN ×2 (07:32→15:25)
[2017-12-28] MEDS: ACETYLCYSTEINE 10% SOLN 400 MG/4 ML VIAL NEB SCH ×3 (07:32→23:02)
[2017-12-28 08:00] VITALS: BP 125/73
[2017-12-28] MEDS: PROSOURCE / PROSTAT (PYXIS) 30 ML UDC GT SCH (08:50)
[2017-12-28] MEDS: LEVETIRACETAM SOL (5 ML) 100 MG/ML UDC GT SCH ×3 (08:50→16:48)
[2017-12-28] MEDS: PANTOPRAZOLE 40 MG VIAL IV SCH (08:50)
[2017-12-28] MEDS: VALPROIC ACID 250 MG/5 ML UDC GT SCH ×2 (08:50→16:48)
[2017-12-28] MEDS: LEVOTHYROXINE SODIUM 100 MCG TABLET GT SCH (08:51)
[2017-12-28] MEDS: LACTOBACILLUS RHAMNOSUS GG 1 EACH CAP.SPRINK GT SCH ×2 (08:51→16:48)
[2017-12-28] MEDS: PHENOBARBITAL 30 MG TABLET GT SCH ×2 (08:51→16:48)
[2017-12-28] MEDS: TOPIRAMATE 25 MG TABLET GT SCH ×2 (08:51→16:48)
[2017-12-28 16:00] VITALS: BP 150/80
[2017-12-28] MEDS: IV 1/2NS 1000 ML 1,000 ML IV PRN (16:47)
--- NOTE | 2017-12-28 18:00 | NUR ---
MS RN NEW IV INSERTED R FA IV FOUND TO BE INFILTRATED. NEW IV INSERTED AT THE R HAND #24G AND IS PATENT, CLEAN, DRY AND INTACT.
--- NOTE | 2017-12-28 19:08 | NUR ---
MS RN CLOSING NOTE PT IN BED, OBTUNDED. NO ACUTE DISTRESS NOTED AT THIS TIME. PT HAS TRACH #7 PORTEX WITH COOL AEROSOL, FIO2 28%, 5LPM. BREATHING IS EVEN AND UNLABORED. R HAND #224 IV IS INFUSING ORDERED WITHOUT REDNESS OR SWELLING. PT TOLERATING CURRENT G-TUBE FEEDING. ASPIRATION AND CONTACT PRECAUTIONS MAINTAINED. PRIVATE CAREGIVER AT THE BEDSIDE. ADLS AND WOUND CARE PROVIDED ORDERED, PT ASSISTED TO TURN AND REPOSITION Q2H. BED IS LOCKED AND IN LOWEST POSITION, SIDE RAILS UP X3, BED ALARM ON, CALL LIGHT WITHIN REACH.
--- NOTE | 2017-12-28 19:40 | NUR ---
MS RN NOTE: PATIENT RESTING IN BED, NO ACUTE DISTRESS NOTED, CAREGIVER AT BEDSIDE. BREATHING EVEN AND UNLABORED, NO SOB NOTED. TRACH IN PLACE. IV TO RIGHT HAND IN PLACE. G-TUBE IN PLACE, WITH NO RESIDUAL, INFUSING JEVITY AT 50 ML/HR. HOB ELEVATED. ISOLATION PRECAUTIONS OBSERVED. BED LOCKED AND IN LOWEST POSITION, CALL LIGHT IN REACH. WILL CONTINUE TO MONITOR.
[2017-12-28 20:00] VITALS: BP 146/85
[2017-12-28] MEDS: ENOXAPARIN SODIUM 40 MG/0.4 ML DISP.SYRIN SQ SCH (22:03)
--- NOTE | 2017-12-29 03:00 | NUR ---
MS RN NOTE: PATIENT SLEEPING IN BED, NO ACUTE DISTRESS NOTED. BREATHING EVEN AND UNLABORED, NO SOB NOTED. TRACH IN PLACE. G-TUBE IN PLACE, INFUSING JEVITY AT 50 ML/HR. HOB ELEVATED. ISOLATION PRECAUTIONS OBSERVED. BED LOCKED AND IN LOWEST POSITION, CALL LIGHT IN REACH. WILL CONTINUE TO MONITOR.
[2017-12-29] MEDS: JEVITY 1.2 CAL 1,000 ML BOTTLE GT SCH (05:38)
[2017-12-29] MEDS: OXYBUTYNIN CHLORIDE 5 MG TABLET GT SCH ×3 (05:38→21:53)
--- NOTE | 2017-12-29 06:30 | NUR ---
MS RN NOTE: PATIENT RESTING IN BED, NO ACUTE DISTRESS NOTED. BREATHING EVEN AND UNLABORED, NO SOB NOTED. TRACH IN PLACE. IV TO RIGHT HAND IN PLACE ACCIDENTALLY GOT PULLED OUT WHEN BEING CHANGED. WILL TRY TO START A NEW IV SITE. G-TUBE IN PLACE, INFUSING JEVITY AT 50 ML/HR. HOB ELEVATED. ISOLATION PRECAUTIONS OBSERVED. BED LOCKED AND IN LOWEST POSITION, CALL LIGHT IN REACH. WILL ENDORSE TO DAY NURSE TO CONTINUE WITH PLAN OF CARE.
--- NOTE | 2017-12-29 07:25 | NUR ---
RN OPENING NOTES RECEIVED PT. IN BED OBTUNDED NON VERBAL, PT. CAN BLINK EYES. BREATHING EVENLY WITH A TRACHEOSTOMY ON OXYGEN, PORTEX SIZE 7. NO S/S OF ACUTE DISTRESS. IV FLUIDS RUNNING AT 75 ML/HR. G TUBE FEEDING RUNNING AT 50 ML/HR. BED IS IN LOWEST, AND LOCKED POSITION. 2 SIDE RAILS UP, AND INSTRUCTED PT. TO USE CALL LIGHT FOR ASSISTANCE. ALL NEEDS MET. WILL CONTINUE TO ASSESS AND MONITOR.
[2017-12-29] MEDS: ACETYLCYSTEINE 10% SOLN 400 MG/4 ML VIAL NEB SCH ×3 (07:55→23:58)
[2017-12-29 08:00] VITALS: BP 107/69
[2017-12-29] MEDS: PANTOPRAZOLE 40 MG VIAL IV SCH (09:34)
[2017-12-29] MEDS: LEVETIRACETAM SOL (5 ML) 100 MG/ML UDC GT SCH ×3 (09:35→17:36)
[2017-12-29] MEDS: PROSOURCE / PROSTAT (PYXIS) 30 ML UDC GT SCH (09:36)
[2017-12-29] MEDS: VALPROIC ACID 250 MG/5 ML UDC GT SCH ×2 (09:36→17:36)
[2017-12-29] MEDS: TOPIRAMATE 25 MG TABLET GT SCH ×2 (09:37→17:36)
[2017-12-29] MEDS: LACTOBACILLUS RHAMNOSUS GG 1 EACH CAP.SPRINK GT SCH ×2 (09:37→17:36)
[2017-12-29] MEDS: LEVOTHYROXINE SODIUM 100 MCG TABLET GT SCH (09:37)
[2017-12-29] MEDS: PHENOBARBITAL 30 MG TABLET GT SCH ×2 (09:37→17:36)
[2017-12-29] MEDS: ACETAMINOPHEN 325 MG TABLET PO PRN ×2 (09:39→17:36)
[2017-12-29] MEDS: IV 1/2NS 1000 ML 1,000 ML IV PRN (09:43)
[2017-12-29 16:00] VITALS: BP 133/69
--- NOTE | 2017-12-29 19:45 | NUR ---
MS RIDGE INITIAL NOTES RECEIVED PT IN BED LYING AWAKE WITH TRACH POTRX #7 FIO2 285 AT 5 LITERS /PM. NO SIGNS OF ANY ACUTE DISTRESS NOTED , WITH G-TUBE FEEDING JEVITY AT 50ML/HR NO RESIDUAL NOTED AT THIS TIME. SHE ALSO HAVE IVF 1/2 NS AT 75ML/HR INFUSING ON HER LEFT HAND. NO REDNESS NOTED. ON SPECIAL MATTRESS WITH SIDE RAILS X2 UP. SKIN WARM AND DRY TO TOUCH. REPOSITION PT FOR COMFORT AND ON SEMI FOWLERS POSITION. ASPIRATION AND ISOLATION PRECAUTION SPUTUM IMPLEMENTED AND OBSERVED. KEPT HER WARM AND COMFORTABLE AT ALL TIMES WILL CONTINUE MONITORING.
--- NOTE | 2017-12-29 19:45 | NUR ---
RN CLOSING NOTES PT. IS IN BED OBTUNDED, NON VERBAL, AND CAN BLINK EYES. BREATHING EVENLY WITH A TRACHEOSTOMY ON OXYGEN, PORTEX SIZE 7. NO S/S OF ACUTE DISTRESS. IV FLUIDS RUNNING AT 75 ML/HR. G TUBE FEEDING RUNNING AT 50 ML/HR. BED IS IN LOWEST, AND LOCKED POSITION. 2 SIDE RAILS UP, AND INSTRUCTED PT. TO USE CALL LIGHT FOR ASSISTANCE. ALL NEEDS MET. WILL ENDORSE REPORT TO NURSE.
[2017-12-29 20:00] VITALS: BP 115/60
[2017-12-29] MEDS: ENOXAPARIN SODIUM 40 MG/0.4 ML DISP.SYRIN SQ SCH (21:58)
--- NOTE | 2017-12-29 22:00 | NUR ---
MS HVAC SPECIALIST NOTES ROUTINE MEDS GIVEN MALDONADO G-TUBE, NO ASPIRATION NOTED. BED BATH ALSO RENDERED WITH THE HELPED OF TRADING FLOOR OPERATOR AND REMEDY Z=GUARD APPLIED TO AFFECTED AREA. REPOSITION PT FOR COMFORT. KEPT HER WARM AND COMFORTABLE AT ALL TIMES. FAMILY AT THE BEDSIDE. WILL CONTINUE MONITORING.
[2017-12-29] MEDS ORDERED: Z GUARD REMEDY 4 OZ OINT TP ONE (22:01)
[2017-12-30] MEDS: OXYBUTYNIN CHLORIDE 5 MG TABLET GT SCH ×3 (05:38→20:03)
[2017-12-30] MEDS: IV 1/2NS 1000 ML 1,000 ML IV PRN ×2 (05:39→20:56)
[2017-12-30] MEDS: JEVITY 1.2 CAL 1,000 ML BOTTLE GT SCH (05:51)
[2017-12-30] MEDS: Z GUARD REMEDY 2 OZ OINT TP PRN (06:31)
--- NOTE | 2017-12-30 07:10 | NUR ---
RN OPENING NOTES RECEIVED PT. IN BED OBTUNDED NON VERBAL, PT. CAN BLINK EYES. BREATHING EVENLY WITH A TRACHEOSTOMY ON OXYGEN, PORTEX SIZE 7. NO S/S OF ACUTE DISTRESS. IV FLUIDS RUNNING AT 75 ML/HR. G TUBE FEEDING RUNNING AT 50 ML/HR. BED IS IN LOWEST, AND LOCKED POSITION. 2 SIDE RAILS UP. WILL CONTINUE TO ASSESS AND MONITOR.
--- NOTE | 2017-12-30 07:30 | NUR ---
MS FRAME STRAIGHTENER CLOSING NOTES PT STABLE MALDONADO THE NIGHT. ALL DUE MEDS GIVEN AND ALL NEEDS MET. NO SIGNS OF ANY ACUTE DISTRESS NOTED. MALDONADO THE NIGHT. SUCTIONED NEEDED. REPOSITION HER FOR COMFORT AFTER SPONGE BATH RENDERED. G-TUBE FEEDING TOLERATED WELL NO ASPIRATION NOTED. RESIDUAL 1 ML NOTED. IVF STILL INFUSING ON HER LEFT HAND PATENT AND INTAC. KEPT HER WARM AND COMFORTABLE AT ALL TIMES ENDORSE.
[2017-12-30] MEDS: ACETYLCYSTEINE 10% SOLN 400 MG/4 ML VIAL NEB SCH ×3 (07:33→23:06)
[2017-12-30 08:00] VITALS: BP 140/90
[2017-12-30] MEDS: VALPROIC ACID 250 MG/5 ML UDC GT SCH ×2 (08:45→17:20)
[2017-12-30] MEDS: PANTOPRAZOLE 40 MG VIAL IV SCH (08:45)
[2017-12-30] MEDS: LACTOBACILLUS RHAMNOSUS GG 1 EACH CAP.SPRINK GT SCH ×2 (08:45→17:20)
[2017-12-30] MEDS: LEVETIRACETAM SOL (5 ML) 100 MG/ML UDC GT SCH ×3 (08:45→17:20)
[2017-12-30] MEDS: PHENOBARBITAL 30 MG TABLET GT SCH ×2 (08:46→17:20)
[2017-12-30] MEDS: LEVOTHYROXINE SODIUM 100 MCG TABLET GT SCH (08:46)
[2017-12-30] MEDS: TOPIRAMATE 25 MG TABLET GT SCH ×2 (08:46→17:20)
[2017-12-30] MEDS: PROSOURCE / PROSTAT (PYXIS) 30 ML UDC GT SCH (09:54)
[2017-12-30] MEDS: ACETAMINOPHEN 325 MG TABLET PO PRN (15:11)
[2017-12-30 16:00] VITALS: BP 120/65
--- NOTE | 2017-12-30 16:04 | NUR ---
PT RCVD TRACH'D ON COOL AEROSOL WITH CHARTED SETTINGS. HHN TX GIVEN IN-LINE AND NO ADVERSE REACTION NOTED. SX DONE. PT TRACH PATENT AND SECURE. NO RESP DISTRESS OR SOB NOTED AT THIS TIME. AMBU BAG AT BEDSIDE. WILL CONTINUE TO MONITOR. Addendum: 12/30/17 at 1606 by JORGE LAGOS RT Amended: Links added.
--- NOTE | 2017-12-30 19:10 | NUR ---
MS RN OPENING NOTES Received patient obtunded, nonverbal on Fowlers position on bed. With tracheotomy on O2, portex #7. No s/s of respiratory distress, breathing even and unlabored. With GTF infusing well @ 50ml/hr, abdomen soft, no distention noted. With bilateral upper and lower extremities contractures. Kept clean, dry and comfortable. Will continue to monitor accordingly.
--- NOTE | 2017-12-30 19:20 | NUR ---
PT. IN BED OBTUNDED NON VERBAL, PT. CAN BLINK EYES. BREATHING EVENLY WITH A TRACHEOSTOMY ON OXYGEN, PORTEX SIZE 7. NO S/S OF ACUTE DISTRESS. IV FLUIDS RUNNING AT 75 ML/HR. G TUBE FEEDING RUNNING AT 50 ML/HR. BED IS IN LOWEST, AND LOCKED POSITION. 2 SIDE RAILS UP.PT KEPT CLEAN AND DRY DURING THE SHIFT, REPOSITIONED Q2 H. WILL ENDORSE TO NEXT SHIFT. POSSIBLE D/C TOMORROW
[2017-12-30 20:00] VITALS: BP 133/71
[2017-12-30] MEDS: ENOXAPARIN SODIUM 40 MG/0.4 ML DISP.SYRIN SQ SCH (20:05)
[2017-12-30] MEDS: ALBUTEROL FS 2.5 MG/3 ML VIAL.NEB NEB PRN (23:06)
[2017-12-30] MEDS: IPRATROPIUM NEB FS 0.5 MG/2.5 ML AMPUL.NEB NEB PRN (23:06)
[2017-12-31] MEDS: OXYBUTYNIN CHLORIDE 5 MG TABLET GT SCH ×3 (05:23→21:35)
--- NOTE | 2017-12-31 07:34 | NUR ---
MS RN CLOSING NOTES PATIENT IN STABLE CONDITION. NO NEW UNUSUALITIES NOTED THROUGHOUT THE SHIFT. PATIENT IS BREATHING EVEN AND UNLABORED. NO RESPIRATORY DISTRESS NOTED. ALL NEEDS ATTENDED. ENDORSED TO THE NEXT SHIFT.
--- NOTE | 2017-12-31 07:48 | NUR ---
MS RN NOTES PATIENT RECEIVED RESTING INSIDE ROOM. AWAKE, OBTUNDED, NON-VERBAL. CONTINUE WITH TRACH ON COOL AEROSOL. NO ACUTE DISTRESS. GT INTACT AND IN PLACE. MAINTAINED ASPIRATION PRECAUTIONS. WILL CONTINUE TO MONITOR. BED LOCKED AND IN LOW POSITION. BILATERAL UPPER SIDE RAILS UP AND LOCKED. CALL LIGHT WITHIN EASY REACH
[2017-12-31] MEDS: ACETYLCYSTEINE 10% SOLN 400 MG/4 ML VIAL NEB SCH ×3 (07:58→23:43)
[2017-12-31 08:21] VITALS: BP 146/90
[2017-12-31] MEDS: LEVOTHYROXINE SODIUM 100 MCG TABLET GT SCH (08:43)
[2017-12-31] MEDS: PANTOPRAZOLE 40 MG VIAL IV SCH (08:43)
[2017-12-31] MEDS: PROSOURCE / PROSTAT (PYXIS) 30 ML UDC GT SCH (08:43)
[2017-12-31] MEDS: LACTOBACILLUS RHAMNOSUS GG 1 EACH CAP.SPRINK GT SCH ×2 (08:43→17:24)
[2017-12-31] MEDS: PHENOBARBITAL 30 MG TABLET GT SCH ×2 (08:43→17:24)
[2017-12-31] MEDS: VALPROIC ACID 250 MG/5 ML UDC GT SCH ×2 (08:43→17:23)
[2017-12-31] MEDS: TOPIRAMATE 25 MG TABLET GT SCH ×2 (08:43→17:24)
[2017-12-31] MEDS: LEVETIRACETAM SOL (5 ML) 100 MG/ML UDC GT SCH ×3 (08:46→17:23)
[2017-12-31] MEDS: IV 1/2NS 1000 ML 1,000 ML IV PRN (12:23)
--- NOTE | 2017-12-31 15:00 | NUR ---
RT Pt received trac'd on cool aerosol w charted settings. Shawn is secure and patent w jorge and tai mayen @ [place]. Hhn tx given and pt sx'd w no adverse reactions. No respiratory distress noted t/o shift. Will continue to monitor. Addendum: 12/31/17 at 1828 by VENUS LOMAS RT Amended: Links added.
[2017-12-31 16:00] VITALS: BP 139/79
[2017-12-31] MEDS: ACETAMINOPHEN 325 MG TABLET PO PRN (17:23)
[2017-12-31] MEDS: JEVITY 1.2 CAL 1,000 ML BOTTLE GT SCH (17:31)
--- NOTE | 2017-12-31 18:45 | NUR ---
MS RN NOTES PATIENT RESTING INSIDE ROOM. OBTUNDED, NON-VERBAL. CONTINUE WITH TRACH, ON COOL AEROSOL. NO ACUTE DISTRESS. PATIENT SUCTIONED NEEDED. MAINTAINED ASPIRATION PRECAUTIONS. CONTINUE WITH GTF. GT PATIENT AND IN PLACE. MAINTAINED ISOLATION PRECAUTIONS. WILL ENDORSE TO INCOMING SHIFT FOR JERMAINE. BED LOCKED AND IN LOW POSITION. BILATERAL UPPER SIDE RAILS UP AND LOCKED. CALL LIGHT WITHIN EASY REACH
--- NOTE | 2017-12-31 19:10 | NUR ---
RN OPENING NOTES PT OBTUNDED WITH TRACH AND COOL AEROSOL. NO APPARENT S/S OF PAIN, DISTRESS OR SOB AT THIS TIME. PT HAS JEVITY GT FEEDING RUNNING AT 50ML/HR FOR 20 HOURS. PATIENT TOLERATING FEEDING WELL. PT HAS LEFT HAND #24 IV RUNNING 1/2NS @75ML/HR, INTACT AND PT TOLERATING FLUIDS WELL. PER DAY SHIFT NURSE WAITING FOR INSURANCE VERIFICATION FOR PT PLACEMENT. SAFETY PRECAUTIONS IN PLACE, BED IN LOWEST LOCKED POSITION, X3 SIDE RAILS UP AND CALL LIGHT WITHIN REACH. WILL CONTINUE TO MONITOR.
[2017-12-31 20:00] VITALS: BP 108/59
[2017-12-31] MEDS: ENOXAPARIN SODIUM 40 MG/0.4 ML DISP.SYRIN SQ SCH (21:35)
[2018-01-01] MEDS: IV 1/2NS 1000 ML 1,000 ML IV PRN ×2 (02:33→22:59)
[2018-01-01] MEDS: OXYBUTYNIN CHLORIDE 5 MG TABLET GT SCH ×3 (04:32→21:00)
--- NOTE | 2018-01-01 06:18 | NUR ---
RN CLOSING NOTES PT OBTUNDED/NONVERBAL. PT TRACH TO COOL AEROSOL. NO APPARENT S/S OF PAIN, DISTRESS OR SOB OVERNIGHT. PT HAS GT FEEDING RUNNING JEVITY 1.2 @50ML/HR, 20 HOURS ON AND 4 OFF. PT HAS A LEFT HAND #24 IV INTACT AND RUNNING 1/2NS @75ML/HR. AWAITING POSSIBLE DC TO [facility]. AWAITING INSURANCE VERIFICATION POSSIBLE DC TODAY OR TOMORROW. SAFETY PRECAUTIONS IN PLACE, BED IN LOWEST LOCKED POSITION, WILL ENDORSE TO DAY SHIFT NURSE FOR CONTINUITY OF CARE.
--- NOTE | 2018-01-01 07:54 | NUR ---
MS RN NOTES PATIENT RESTING INSIDE ROOM. OBTUNDED, NON-VERBAL, CONTINUE WITH TRACH ON COOL AEROSOL. NO ACUTE DISTRESS. CONTINUE WITH GTF. GT PATENT AND IN PLACE. MAINTAINED ASPIRATION PRECAUTIONS. HOB ELEVATED AT 45. MAINTAINED ISOLATION PRECAUTIONS. WILL CONTINUE TO MONITOR. BED LOCKED AND IN LOW POSITION. BILATERAL UPPER SIDE RAILS UP AND LOCKED. CALL LIGHT WITHIN EASY REACH
[2018-01-01] MEDS: ACETYLCYSTEINE 10% SOLN 400 MG/4 ML VIAL NEB SCH ×3 (07:55→23:54)
[2018-01-01] MEDS: ALBUTEROL FS 2.5 MG/3 ML VIAL.NEB NEB PRN ×2 (07:55→15:20)
[2018-01-01 08:00] VITALS: BP 127/88
[2018-01-01] MEDS: LEVOTHYROXINE SODIUM 100 MCG TABLET GT SCH (08:53)
[2018-01-01] MEDS: LACTOBACILLUS RHAMNOSUS GG 1 EACH CAP.SPRINK GT SCH ×2 (08:53→17:02)
[2018-01-01] MEDS: TOPIRAMATE 25 MG TABLET GT SCH ×2 (08:53→17:02)
[2018-01-01] MEDS: PHENOBARBITAL 30 MG TABLET GT SCH ×2 (08:53→17:02)
[2018-01-01] MEDS: PANTOPRAZOLE 40 MG VIAL IV SCH (08:53)
[2018-01-01] MEDS: PROSOURCE / PROSTAT (PYXIS) 30 ML UDC GT SCH (08:53)
[2018-01-01] MEDS: LEVETIRACETAM SOL (5 ML) 100 MG/ML UDC GT SCH ×3 (08:53→17:02)
[2018-01-01] MEDS: VALPROIC ACID 250 MG/5 ML UDC GT SCH ×2 (08:53→17:02)
[2018-01-01 16:00] VITALS: BP 126/67
--- NOTE | 2018-01-01 19:14 | NUR ---
MS RN NOTE: RECEIVED PT ON BED, OBTUNDED, NONVERBAL. NO APPARENT DISTRESS NOTED. NO FACIAL GRIMACING OR ANY SIGNS OF PAIN NOTED. ON COOL AEROSOL, NO SOB NOTED. SATURATING WELL. GT INTACT AND PATENT, NO RESIDUAL NOTED AT THIS TIME. IV ON RIGHT HAND #22 INTACT WITH IVF 1/2 NS RUNNING AT 75ML/HR. NO SIGNS/SYMPTOMS OF INFILTRATION NOTED. KEPT CLEAN, DRY AND COMFORTABLE. SAFETY AND FALL PRECAUTIONS OBSERVED AND MAINTAINED. WILL CONTINUE TO MONITOR PT.
--- NOTE | 2018-01-01 19:18 | NUR ---
MS RN NOTES PATIENT RESTING INSIDE ROOM. OBTUNDED, NON-VERBAL. CONTINUE ON TRACH ON COOL AEROSOL. NO ACUTE DISTRESS. NO FACIAL GRIMACE OR INDICATIONS OF PAIN NOTED. CONTINUE WITH GTF AND TOLERATING WELL. GT PATENT AND IN PLACE. MAINTAINED ASPIRATION PRECAUTIONS. PATIENT KEPT CLEAN, DRY AND COMFORTABLE. MAINTAINED ISOLATION PRECAUTIONS. ENDORSED TO INCOMING SHIFT FOR JERMAINE. BED LOCKED AND IN LOW POSITION. BILATERAL UPPER SIDE RAILS UP AND LOCKED. CALL LIGHT WITHIN EASY REACH
[2018-01-01 20:00] VITALS: BP 132/88
[2018-01-01] MEDS: ENOXAPARIN SODIUM 40 MG/0.4 ML DISP.SYRIN SQ SCH (21:00)
[2018-01-01] MEDS: JEVITY 1.2 CAL 1,000 ML BOTTLE GT SCH (21:12)
--- NOTE | 2018-01-01 23:20 | NUR ---
RECEIVED PT FROM THIRD FLOOR IN STABLE CONDITION ACCOMPANIED WITH THE DTR AT THE BED SIDE. PT REMAINED NON- VERBAL. BREATHING EVENLY WITH TRACH IN PLACE. GT IN PLACE . PT WAS CONNECTED TO THE GTF W/ HOB ELEVATED. HOOKED UP TOT HE IV ON THE R HAND . S/B RT AT THE BED SIDE. NO S/S OF PAIN OR DISCOMFORT NOTED. WILL CONT TO MONITOR ,
[2018-01-02] MEDS: OXYBUTYNIN CHLORIDE 5 MG TABLET GT SCH ×3 (05:03→21:14)
[2018-01-02 06:49] LABS: CALCIUM, SERUM 8.4 mg/dL (8.5-10.1); CREATININE 0.3 mg/dL (0.6-1.3); MAGNESIUM 1.9 mg/dL (1.8-2.4); PHOSPHORUS 3.8 mg/dL (2.5-4.9); POTASSIUM 3.6 mmol/L (3.5-5.1)
--- NOTE | 2018-01-02 07:15 | NUR ---
PT IN BED RESTING COMFORTABLY.RESPONSIVE TO TOUCH AND PAINFUL STIMULI. TRACH IN PLACE. BREATHING EVENLY. NO SOB. NO ACUTE EVENT DURING THE NIGHT. NO RESP DISTRESS NOTED. GTF UVALDO WELL. HOB ELEVATED. CLEANED AND DRIED , REPOSITIONED ROUTINELY. BED LOW LOCKED. SRX2. CALL LIGHT WITHIN REACH,. WILL CONT TO MONITOR AND WILL ENDORSE TO AM SHIFT FOR JERMAINE.
[2018-01-02 08:00] VITALS: BP 107/78
[2018-01-02] MEDS: ACETYLCYSTEINE 10% SOLN 400 MG/4 ML VIAL NEB SCH ×3 (08:00→22:52)
[2018-01-02] MEDS: ALBUTEROL FS 2.5 MG/3 ML VIAL.NEB NEB PRN ×2 (08:00→15:13)
--- NOTE | 2018-01-02 08:00 | NUR ---
MS RN NOTES RECEIVED PATIENT ASLEEP IN BED WITH NO DISTRESS NOTED. NO FACIAL GRIMACING OR GROANING TO INDICATE PAIN OR DISCOMFORT. PERIPHERAL IV INTACT AND PATENT. TRACH AND GT INTACT AND PATENT. BED IN LOW LOCK POSITION. WILL CONTINUE TO MONITOR
[2018-01-02] MEDS: LACTOBACILLUS RHAMNOSUS GG 1 EACH CAP.SPRINK GT SCH ×2 (09:32→17:42)
[2018-01-02] MEDS: PHENOBARBITAL 30 MG TABLET GT SCH ×2 (09:32→17:42)
[2018-01-02] MEDS: LEVETIRACETAM SOL (5 ML) 100 MG/ML UDC GT SCH ×3 (09:32→17:43)
[2018-01-02] MEDS: VALPROIC ACID 250 MG/5 ML UDC GT SCH ×2 (09:33→17:43)
[2018-01-02] MEDS: PANTOPRAZOLE 40 MG VIAL IV SCH (09:33)
[2018-01-02] MEDS: TOPIRAMATE 25 MG TABLET GT SCH ×2 (09:33→17:42)
[2018-01-02] MEDS: LEVOTHYROXINE SODIUM 100 MCG TABLET GT SCH (09:33)
[2018-01-02] MEDS: PROSOURCE / PROSTAT (PYXIS) 30 ML UDC GT SCH (09:34)
[2018-01-02] MEDS: IV 1/2NS 1000 ML 1,000 ML IV PRN (14:24)
[2018-01-02 16:00] VITALS: BP 108/64
[2018-01-02] MEDS ORDERED: MEROPENEM 1 G in IV NS 0.9% 100 ML IV SCH (16:00)
[2018-01-02] MEDS: JEVITY 1.2 CAL 1,000 ML BOTTLE GT SCH (17:49)
--- NOTE | 2018-01-02 18:47 | NUR ---
MS RN NOTES PATIENT AWAKE IN BED AND REMAINS IN STABLE CONDITION. FAMILY AT BEDSIDE. NO FACIAL GRIMACING OR GROANING TO INDICATE PAIN OR DISCOMFORT. ALL DUE MEDS GIVEN ORDERED WITH NO ASE NOTED. PERIPHERAL IV REMAINS INTACT AND PATENT. GTF JEVITY AT 50ML/HR AND TOLERATING WELL. BED IN LOW LOCK SETTING. CALL LIGHT WITHIN REACH. WILL ENDORSE TO ONCOMING SHIFT.
--- NOTE | 2018-01-02 19:30 | NUR ---
RECEIVED PT IN BED IN STABLE CONDITION W/ THE CG AT THE BED SIDE. PT REMAINED NON- VERBAL. BREATHING EVENLY WITH TRACH IN PLACE. GT IN PLACE . W/ HOB ELEVATED. IV ON THE R HAND INTACT AND PATENT W/ ONGOING IVF HYDRATION. NO S/S OF PAIN OR DISCOMFORT NOTED. SUCTIONED NEEDED. BED LOW LOCKED. CALL LIGHT WITHIN REACH . WILL CONT TO MONITOR ,
[2018-01-02 20:54] VITALS: BP 97/56
[2018-01-02] MEDS: MEROPENEM 1 G in IV NS 0.9% 100 ML IV SCH (21:14)
[2018-01-02] MEDS: ENOXAPARIN SODIUM 40 MG/0.4 ML DISP.SYRIN SQ SCH (21:15)
--- NOTE | 2018-01-03 03:47 | NUR ---
NEW IV INSERTED PATIENT'S RIGHT HAND IV GOT PULLED OUT, NO BLEEDING NOTED. DRESSING APPLIED. NEW IV CATH INSERTED TO LEFT HAND, G # 22 WITH GOOD BLOOD RETURN, NO INFILTRATION OR S/S OF INFECTION NOTED. PROCEDURE TOLERATED WELL BY THE PATIENT. WILL CONTINUE TO MONITOR.
[2018-01-03] MEDS: MEROPENEM 1 G in IV NS 0.9% 100 ML IV SCH ×3 (05:12→21:01)
[2018-01-03] MEDS: OXYBUTYNIN CHLORIDE 5 MG TABLET GT SCH ×3 (05:12→21:02)
[2018-01-03] MEDS: IV 1/2NS 1000 ML 1,000 ML IV PRN ×2 (06:52→21:43)
[2018-01-03] MEDS: ALBUTEROL FS 2.5 MG/3 ML VIAL.NEB NEB PRN ×2 (07:32→16:03)
[2018-01-03] MEDS: ACETYLCYSTEINE 10% SOLN 400 MG/4 ML VIAL NEB SCH ×2 (07:32→16:03)
--- NOTE | 2018-01-03 07:37 | NUR ---
PT IN BED STABLE W/ NO ACUTE EVENT DURING THE NIGHT , NO RESP DISTRESS. . MEDICATED ORDERED. CLEANED AND DRIED. REPOSITIONED ROUTINELY. BED LOW LOCKED. SRX2. CALL LIGHT WITHIN REACH,. WILL CONT TO MONITOR AND WILL ENDORSE TO AM SHIFT FOR JERMAINE
[2018-01-03 08:00] VITALS: BP 118/59
--- NOTE | 2018-01-03 08:00 | NUR ---
MS RN NOTES RECEIVED PATIENT ASLEEP IN BED WITH NO DISTRESS NOTED. NO FACIAL GRIMACING OR GROANING TO INDICATE PAIN OR DISCOMFORT. WITH IVF 1/2 NS AT 75 ML/HR INFUSING WELL.GT FEEDING OFF AND TO BE ON AT 12NN.TRACH AND GT INTACT AND PATENT. SUCTIONED ORAL AND TRACH SECRETIONS OFTEN.ORAL CARE RENDERED. BED IN LOW LOCK POSITION. WILL CONTINUE TO MONITOR.TURNED EVERY TWO HRS.HOB ELEVATED.
[2018-01-03] MEDS: VALPROIC ACID 250 MG/5 ML UDC GT SCH ×2 (08:40→17:33)
[2018-01-03] MEDS: LACTOBACILLUS RHAMNOSUS GG 1 EACH CAP.SPRINK GT SCH ×2 (08:40→17:33)
[2018-01-03] MEDS: LEVETIRACETAM SOL (5 ML) 100 MG/ML UDC GT SCH ×3 (08:41→17:33)
[2018-01-03] MEDS: TOPIRAMATE 25 MG TABLET GT SCH ×2 (08:41→17:33)
[2018-01-03] MEDS: PHENOBARBITAL 30 MG TABLET GT SCH ×2 (08:41→17:33)
[2018-01-03] MEDS: LEVOTHYROXINE SODIUM 100 MCG TABLET GT SCH (08:41)
[2018-01-03] MEDS: PROSOURCE / PROSTAT (PYXIS) 30 ML UDC GT SCH (08:41)
[2018-01-03] MEDS: PANTOPRAZOLE 40 MG VIAL IV SCH (08:41)
[2018-01-03] MEDS: JEVITY 1.2 CAL 1,000 ML BOTTLE GT SCH (13:32)
[2018-01-03 16:00] VITALS: BP 122/77
--- NOTE | 2018-01-03 19:00 | NUR ---
MS RN NOTES RECEIVE PT IN BED OBTUNDED, OPENS EYES, IN STABLE CONDITION, NOT IN DISTRESS, SAFETY MEASURES IN PLACE WILL CONTINUE TO MONITOR. CAREGIVER AT BEDSIDE
--- NOTE | 2018-01-03 19:32 | NUR ---
RECEIVED PT IN BED IN STABLE CONDITION W/ THE CG AT THE BED SIDE. PT REMAINED NON- VERBAL. BREATHING EVENLY WITH TRACH IN PLACE. GT JEVITY ONGOING AT 50 ML/HR-TOLERATED WELL. W/ HOB ELEVATED. IV ON THE R HAND INTACT AND PATENT W/ ONGOING IVF HYDRATION. NO S/S OF PAIN OR DISCOMFORT NOTED. SUCTIONED NEEDED. BED LOW LOCKED. CALL LIGHT WITHIN REACH . WILL CONT TO MONITOR ,
[2018-01-03 20:00] VITALS: BP 98/57
[2018-01-03] MEDS: ENOXAPARIN SODIUM 40 MG/0.4 ML DISP.SYRIN SQ SCH (21:06)
[2018-01-04] MEDS: ACETYLCYSTEINE 10% SOLN 400 MG/4 ML VIAL NEB SCH ×4 (00:27→23:51)
[2018-01-04] MEDS: MEROPENEM 1 G in IV NS 0.9% 100 ML IV SCH ×3 (04:01→20:51)
[2018-01-04] MEDS: OXYBUTYNIN CHLORIDE 5 MG TABLET GT SCH ×3 (04:02→21:36)
--- NOTE | 2018-01-04 06:09 | NUR ---
MS RN CLOSING NOTES OBTUNDED, OPEN EYES, ON COOL AEROSOL 02 SAT 100%. TRACH CARE PROVIDED. SUCTIONED NEEDED. RESPIRATION EVEN AND UNLABORED. KEPT CLEAN AND DRY AND COMFORTABLE, ALL NURSING CARE RENDERED. NEEDS ATTENDED AND ANTICIPATED. REPOSITION EVERY Q2H. ON LOW BED AT ALL TIMES TO ENSURE SAFETY. SAFE HAZARD FREE ENVIRONMENT PROVIDED. CALL LIGHT WITHIN EASY TO REACH. WILL ENDORSE NEXT SHIFT CONTINUITY OF CARE
--- NOTE | 2018-01-04 07:21 | NUR ---
MS RN OPENING NOTES RECEIVED PT FROM NIGHTSHIFT RN IN STABLE CONDITION. PT IS OBTUNDENT. OPENS HER EYES SPONTANEOUSLY, AND IS RESPONSIVE TO TACTILE STIMULI. TRACH NOTED TO COOL AEROSOL. SETTING CHECKED FOR ACCURACY (PORTEX #7, FIO2 28%, 02 FLOW RATE 5L). PT TOLERATING SETTINGS WELL. CONTINUOUS PULSE OX NOTED. PT SATING WELL AT 99%. IV NOTED TO BE PATENT AND INTACT. PT TOLERATING NS INFUSION WELL. GTUBE NOTED TO BE PATENT AND INTACT. NO RESIDUALS ASPIRATED AT THIS TIME. PLACEMENT VERIFIED VIA AUSCULTATION. PT TOLERATING GTUBE FEEDINGS WELL. BED IN LOW LOCKED POSITION, SIDE RAILS UP X3, CALL LIGHT WITHIN REACH, BED ALARM ON. WILL CONTINUE TO MONITOR
[2018-01-04] MEDS: ALBUTEROL FS 2.5 MG/3 ML VIAL.NEB NEB PRN ×2 (07:24→15:08)
--- NOTE | 2018-01-04 08:00 | NUR ---
TUBE FEEDING HELD PER ORDER. NO RESIDUALS ASPIRATED AT THIS TIME
[2018-01-04 08:10] VITALS: BP 113/63
[2018-01-04] MEDS: VALPROIC ACID 250 MG/5 ML UDC GT SCH ×2 (09:22→16:25)
[2018-01-04] MEDS: LEVETIRACETAM SOL (5 ML) 100 MG/ML UDC GT SCH ×3 (09:23→16:24)
[2018-01-04] MEDS: LEVOTHYROXINE SODIUM 100 MCG TABLET GT SCH (09:23)
[2018-01-04] MEDS: PANTOPRAZOLE 40 MG VIAL IV SCH (09:23)
[2018-01-04] MEDS: PHENOBARBITAL 30 MG TABLET GT SCH ×2 (09:23→16:25)
[2018-01-04] MEDS: TOPIRAMATE 25 MG TABLET GT SCH ×2 (09:23→16:25)
[2018-01-04] MEDS: PROSOURCE / PROSTAT (PYXIS) 30 ML UDC GT SCH (09:23)
[2018-01-04] MEDS: LACTOBACILLUS RHAMNOSUS GG 1 EACH CAP.SPRINK GT SCH ×2 (09:23→16:25)
[2018-01-04] MEDS: IV 1/2NS 1000 ML 1,000 ML IV PRN (12:33)
--- NOTE | 2018-01-04 12:33 | NUR ---
TUBE FEEDING RESUMED ORDERED
[2018-01-04] MEDS: JEVITY 1.2 CAL 1,000 ML BOTTLE GT SCH (12:34)
[2018-01-04 16:00] VITALS: BP 138/72
[2018-01-04] MEDS: ACETAMINOPHEN 325 MG TABLET PO PRN (16:27)
--- NOTE | 2018-01-04 16:43 | NUR ---
MS RN NOTES: WOUND CARE PT REFUSING DRESSING CHANGE AND WOUND CARE. PER PT "I WANT TO DO IT BY MYSELF OR HAVE THE DOCTOR DO IT". DR. ALLNE A BEDSIDE AND MADE AWARE. PER MD, "CURRENT DRESSING IS FINE RIGHT NOW. PT OR I WILL COMPLETE THE DRESSING CHANGE EVERY 3 DAYS"
--- NOTE | 2018-01-04 18:23 | NUR ---
MS RN CLOSING NOTES PT REMAINS STABLE. ALL NEEDS MET THROUGHOUT SHIFT AND ORDERS CARRIED OUT ACCORDINGLY. ALL DUE MEDS GIVEN. WOUND SKIN CARE RENDERED ORDERED. PT CONTINUES TOLERATING IV INFUSION WELL. NO REDNESS OR SIGNS OF INFILTRATION NOTED TO SITE. SHE CONTINUES TOLERATING GTUBE FEEDINGS AT ORDERED RATE WELL. NO RESIDUALS ASPIRATED AT THIS TIME. NO EPISODES OF N/V/D. PT REMAINS STABLE WITH TRACH. PRN TRACH CARE AND SUCTIONING RENDERED. BREATHING REMAINS EVEN AND UNLABORED. PT REPOSITIONED AND TURNED PER HOSPITAL PROTOCOL. SAFETY MEASURES REMAIN IN PLACE. WILL ENDORSE TO NIGHTSHIFT RN FOR JERMAINE
--- NOTE | 2018-01-04 19:00 | NUR ---
MS RN NOTES RECEIVE PT IN BED OBTUNDED, OPENS EYES, DAUGHTER AT BEDSIDE, 02 SAT AT 100%. IN STABLE CONDITION, NOT IN DISTRESS, SAFETY MEASURES IN PLACE WILL CONTINUE TO MONITOR.
[2018-01-04 20:00] VITALS: BP_SYST 133; BP_SYST 136; BP_DIAS 92
[2018-01-04] MEDS: ZOLPIDEM TARTRATE 5 MG TABLET PO PRN (21:36)
[2018-01-04] MEDS: ENOXAPARIN SODIUM 40 MG/0.4 ML DISP.SYRIN SQ SCH (21:37)
[2018-01-05] MEDS: IV 1/2NS 1000 ML 1,000 ML IV PRN ×2 (03:01→21:33)
[2018-01-05] MEDS: OXYBUTYNIN CHLORIDE 5 MG TABLET GT SCH ×3 (04:03→21:44)
[2018-01-05] MEDS: MEROPENEM 1 G in IV NS 0.9% 100 ML IV SCH ×3 (04:03→21:21)
--- NOTE | 2018-01-05 06:19 | NUR ---
MS RN CLOSING NOTES AM CARE PROVIDED. PT NON VERBAL OPENS EYES OBTUNDED STILL ON COOL AEROSOL 02 SAT 100%. REPOSITION EVERY 2 HOURS. TRACH CARE PROVIDED. SUCTIONED NEEDED. RESPIRATION EVEN AND UNLABORED. KEPT CLEAN AND DRY AND COMFORTABLE, ALL NURSING CARE RENDERED. NEEDS ATTENDED AND ANTICIPATED.
--- NOTE | 2018-01-05 07:30 | NUR ---
PT RECEIVED RESTING COMFORTABLY IN BED. NO S/S OR C/O PAIN OR DISTRESS NOTED. SIDE RAILS UP X2, CALL LIGHT LEFT WITHIN REACH. WILL CONTINUE PLAN OF CARE.
[2018-01-05 08:00] VITALS: BP 120/64
[2018-01-05] MEDS: ACETYLCYSTEINE 10% SOLN 400 MG/4 ML VIAL NEB SCH ×2 (08:05→15:48)
[2018-01-05] MEDS: LEVETIRACETAM SOL (5 ML) 100 MG/ML UDC GT SCH ×3 (08:09→17:01)
[2018-01-05] MEDS: PANTOPRAZOLE 40 MG VIAL IV SCH (08:10)
[2018-01-05] MEDS: LACTOBACILLUS RHAMNOSUS GG 1 EACH CAP.SPRINK GT SCH ×2 (08:10→17:01)
[2018-01-05] MEDS: PHENOBARBITAL 30 MG TABLET GT SCH ×2 (08:11→17:01)
[2018-01-05] MEDS: LEVOTHYROXINE SODIUM 100 MCG TABLET GT SCH (08:11)
[2018-01-05] MEDS: VALPROIC ACID 250 MG/5 ML UDC GT SCH ×2 (08:11→17:01)
[2018-01-05] MEDS: PROSOURCE / PROSTAT (PYXIS) 30 ML UDC GT SCH (08:12)
[2018-01-05] MEDS: TOPIRAMATE 25 MG TABLET GT SCH ×2 (08:13→17:01)
--- NOTE | 2018-01-05 08:19 | NUR ---
Pt received trach'd and on cool aerosol 28%. Hhn tx given and pt sx'd w no adverse reactions. Pt resting comfortably w no respiratory distress. Will continue to monitor. Addendum: 01/05/18 at 0827 by VENUS LOMAS RT Amended: Links added.
[2018-01-05 16:00] VITALS: BP 123/70
--- NOTE | 2018-01-05 17:59 | NUR ---
CHANGE OF SHIFT REPORT PT RESTING COMFORTABLY IN BED WITH EYES CLOSED. NO S/S OR C/O PAIN OR DISTRESS NOTED. SIDE RAILS UP X2, CALL LIGHT LEFT WITHIN REACH. PT KEPT CLEAN, DRY, AND COMFORTABLE. NO SIGNIFICANT CHANGES SINCE PREVIOUS SHIFT. WILL GIVE REPORT TO KELLI PRESCOTT.
--- NOTE | 2018-01-05 19:00 | NUR ---
MS RN NOTES RECEIVE PT IN BED OBTUNDED, OPENS EYES, 02 SAT AT 100%. IN STABLE CONDITION, NOT IN DISTRESS, SAFETY MEASURES IN PLACE WILL CONTINUE TO MONITOR.
[2018-01-05 20:00] VITALS: BP 124/93
[2018-01-05] MEDS: ZOLPIDEM TARTRATE 5 MG TABLET PO PRN (21:44)
[2018-01-05] MEDS: ENOXAPARIN SODIUM 40 MG/0.4 ML DISP.SYRIN SQ SCH (21:48)
[2018-01-05] MEDS: JEVITY 1.2 CAL 1,000 ML BOTTLE GT SCH (21:49)
[2018-01-06] MEDS: ALBUTEROL FS 2.5 MG/3 ML VIAL.NEB NEB PRN
[2018-01-06] MEDS: MEROPENEM 1 G in IV NS 0.9% 100 ML IV SCH ×2 (04:00→12:36)
[2018-01-06] MEDS: OXYBUTYNIN CHLORIDE 5 MG TABLET GT SCH ×3 (04:00→21:14)
--- NOTE | 2018-01-06 06:34 | NUR ---
MS RN CLOSING NOTES REMAIN STABLE THROUGHOUT THE SHIFT. PT STILL NON VERBAL OPENS EYES OBTUNDED STILL ON COOL AEROSOL 02 SAT 100%. REPOSITION EVERY 2 HOURS. TRACH CARE PROVIDED. SUCTIONED NEEDED. RESPIRATION EVEN AND UNLABORED. GT FEEDING INFUSING ORDERED AND TOLERATED WELL. KEPT CLEAN AND DRY AND COMFORTABLE, ALL NURSING CARE RENDERED. NEEDS ATTENDED AND ANTICIPATED.
[2018-01-06 08:00] VITALS: BP 125/97
--- NOTE | 2018-01-06 08:00 | NUR ---
RN NOTES RECEIVED PATIENT IN THE BED NON VERBAL TOTAL CARE. PATIENT TRACHEA DEPENDED, PATIENT HAS NO ACUTE RESPIRATORY DISTRESS, HOB KEEP ELEVATED ALL THE TIME, CHECKED ASPIRATION PRECAUTION, JEVITY 1.2 FEEDING 50/ML /HR. INFUSING 1/2 NS AT 75ML/HR INTACT ON LEFT HAND. V/S STABLE. PATIENT INCONTINENT APPLIED X-GUARD. ASSIST TURN AND REPOSTION Q 12 HR. NEEDS ATTENDED AND ANTICIPATED. CALL LIGHT WITHIN TO REACH. PATIENT HAS SESIAL AIR MATTRESS. SAFETY PRECAUTION MAINTAINED ALL THE TIME WITH HELP OF ADVERTISING WRITER.
[2018-01-06] MEDS: ACETYLCYSTEINE 10% SOLN 400 MG/4 ML VIAL NEB SCH ×4 (08:06→23:29)
[2018-01-06] MEDS: PHENOBARBITAL 30 MG TABLET GT SCH ×2 (09:52→17:24)
[2018-01-06] MEDS: VALPROIC ACID 250 MG/5 ML UDC GT SCH ×2 (09:52→17:24)
[2018-01-06] MEDS: LEVOTHYROXINE SODIUM 100 MCG TABLET GT SCH (09:52)
[2018-01-06] MEDS: LACTOBACILLUS RHAMNOSUS GG 1 EACH CAP.SPRINK GT SCH ×2 (09:52→17:24)
[2018-01-06] MEDS: LEVETIRACETAM SOL (5 ML) 100 MG/ML UDC GT SCH ×3 (09:52→17:24)
[2018-01-06] MEDS: PANTOPRAZOLE 40 MG VIAL IV SCH (09:52)
[2018-01-06] MEDS: TOPIRAMATE 25 MG TABLET GT SCH ×2 (09:52→17:24)
[2018-01-06] MEDS: PROSOURCE / PROSTAT (PYXIS) 30 ML UDC GT SCH (09:53)
--- NOTE | 2018-01-06 12:00 | NUR ---
RN NOTES SCHEDULED MEDICATION ADMINISTERED VIA G-TUBE, ASSIST TURN AND REPOSTION Q 2 HR. RT WITH THE PATIENT FOR BREATHING TREATMENT. ASSIST TURN AND REPOSTION Q 2 HR. CALL LIGHT WITHIN TO REACH,. DAUGHTER NEXT TO THE BED. CONTINUED MONITORING.
[2018-01-06] MEDS: JEVITY 1.2 CAL 1,000 ML BOTTLE GT SCH (12:36)
[2018-01-06 16:00] VITALS: BP 126/92
[2018-01-06] MEDS: IV 1/2NS 1000 ML 1,000 ML IV PRN (18:11)
--- NOTE | 2018-01-06 18:40 | NUR ---
RN NOTES PATIENT HAS NO ACUTE RESPIRATORY DISTRESS, V/S STABLE, ADMINISTERED SCHEDULED MEDICATION WERE VIA G-TUBE, HOB KEEP ELEVATED FOR ASPIRATION PRECAUTION. ASSIST TURN AND REPOSTION Q 2 HR USING PILLOWS. NEEDS ATTENDED AND ANTICIPATED. ENDORSED ONCOMING NURSE FOR PLAN OF CARE.
--- NOTE | 2018-01-06 19:00 | NUR ---
MS RN NOTES RECEIVE PT IN BED OBTUNDED, OPENS EYES, 02 SAT AT 100%. GT FEEDING RUNNING AND TOLERATED WELL. IN STABLE CONDITION, NOT IN DISTRESS, SAFETY MEASURES IN PLACE WILL CONTINUE TO MONITOR.
[2018-01-06 19:40] VITALS: BP 134/70
[2018-01-06 20:00] VITALS: BP 134/70
[2018-01-06] MEDS: ENOXAPARIN SODIUM 40 MG/0.4 ML DISP.SYRIN SQ SCH (21:13)
[2018-01-06] MEDS: ZOLPIDEM TARTRATE 5 MG TABLET PO PRN (21:15)
[2018-01-07] MEDS: OXYBUTYNIN CHLORIDE 5 MG TABLET GT SCH ×3 (04:41→21:04)
--- NOTE | 2018-01-07 06:18 | NUR ---
MS RN CLOSING NOTES PT NON VERBAL OPENS EYES OBTUNDED STILL ON COOL AEROSOL 02 SAT 100%. AM CARE PROVIDED. REPOSITION EVERY 2 HOURS. TRACH CARE PROVIDED. SUCTIONED NEEDED. RESPIRATION EVEN AND UNLABORED. KEPT CLEAN AND DRY AND COMFORTABLE, ALL NURSING CARE RENDERED. NEEDS ATTENDED AND ANTICIPATED.
[2018-01-07] MEDS: IV 1/2NS 1000 ML 1,000 ML IV PRN (06:29)
[2018-01-07] MEDS: ACETYLCYSTEINE 10% SOLN 400 MG/4 ML VIAL NEB SCH ×3 (07:41→23:49)
[2018-01-07 08:00] VITALS: BP 135/76
--- NOTE | 2018-01-07 08:00 | NUR ---
RN NOTES RECEIVED PATIENT IN THE BED ON TRACHEA DEPENDED, PATIENT NON VERBAL, TOTAL CARE. PATIENT HAS NO ACUTE RESPIRATORY DISTRESS. PATIENT ON G-TUBE FEEDING JEVITY 1.2 ML AT 50 ML/HR, NO RESIDUAL, PLACEMENT CHECKED. INFUSING NS AT 75 ML/HR ON LEFT HAND INTACT. SCHEDULED MEDICATION ADMINISTERED VIS G-TUBE. HOB KEEP ELEVATED FOR ASPIRATION PRECAUTION. V/S STABLE, ASSIST TURN AND REPOSTION Q 2 HR. PATIENT INCONTINENT APPLIED Z-GUARD. NEEDS ATTENDED AND ANTICIPATED. CALL LIGHT WITHIN TO REACH. SAFETY PRECAUTION MAINTAINED ALL THE TIME.
[2018-01-07 08:16] VITALS: BP 135/76
[2018-01-07] MEDS: LEVOTHYROXINE SODIUM 100 MCG TABLET GT SCH (09:00)
[2018-01-07] MEDS: PHENOBARBITAL 30 MG TABLET GT SCH ×2 (11:24→17:21)
[2018-01-07] MEDS: VALPROIC ACID 250 MG/5 ML UDC GT SCH ×2 (11:24→17:21)
[2018-01-07] MEDS: TOPIRAMATE 25 MG TABLET GT SCH ×2 (11:24→17:21)
[2018-01-07] MEDS: LACTOBACILLUS RHAMNOSUS GG 1 EACH CAP.SPRINK GT SCH ×2 (11:24→17:21)
[2018-01-07] MEDS: PANTOPRAZOLE 40 MG VIAL IV SCH (11:24)
[2018-01-07] MEDS: LEVETIRACETAM SOL (5 ML) 100 MG/ML UDC GT SCH ×3 (11:24→17:21)
[2018-01-07] MEDS: PROSOURCE / PROSTAT (PYXIS) 30 ML UDC GT SCH (11:24)
--- NOTE | 2018-01-07 12:00 | NUR ---
RN NOTES PATIENT STABLE SCHEDULED MEDICATION ADMINISTERED VIA G-TUBE., NO ACUTE RESPIRATORY DISTRESS, RT NEXT TO THE BED FOR BREATHING TREATMENT. CALL LIGHT WITHIN TO REACH, ASSIST TURN AND REPOSITION Q 2 HR. CONTINUED MONITORING.
[2018-01-07 16:25] VITALS: BP 123/68
[2018-01-07] MEDS: JEVITY 1.2 CAL 1,000 ML BOTTLE GT SCH (17:34)
--- NOTE | 2018-01-07 18:30 | NUR ---
RN NOTES PATIENT STABLE, NO ACUTE RESPIRATORY DISTRESS. MED ADMINISTERED VIS G-TUBE, V/S STABLE, NEURO UROLOGIST NEXT TO THE BED. ASSIST TURN AND REPOSTION Q 2 HR. SAFETY PRECAUTION MAINTAINED ALL THE TIME. ENDORSED ONCOMING NURSE FOR PLAN OF CARE.
--- NOTE | 2018-01-07 19:30 | NUR ---
received pt in bed with the family and the CG at the bed side. breathing evenly. no SOB. NAD. skin warm and dry, trach in place . pt was suctioned . repositioned . hob elevated . call light within reach, will cont to monitor
[2018-01-07 20:00] VITALS: BP 146/93
[2018-01-07 20:51] VITALS: BP 146/93
[2018-01-07] MEDS: ENOXAPARIN SODIUM 40 MG/0.4 ML DISP.SYRIN SQ SCH (21:09)
--- NOTE | 2018-01-07 23:16 | NUR ---
NEW IV LINE WAS INSERTED ON R HAND 22G W/ GOOD BLOOD RETURN. WILL CONT TO MONITOR ,
--- NOTE | 2018-01-07 23:55 | NUR ---
pt received on aerosol via trach with charted settings. airway patent. trach secure via trach tie. pt awake. suctioned a moderate amount of thick yellow secretions. pt receiving breathing tx q8 at this time. pt hob at 30 degrees. suctioned oral secretion from pts mouth Addendum: 01/07/18 at 2356 by CHARISSE BELTRE RT Amended: Links added.
[2018-01-08] VITALS: BP 105/73
--- NOTE | 2018-01-08 02:33 | NUR ---
NOTED W/ R NECK MASD. GOOD SKIN CARE PROVIDED, CLEANED AND DRIED, TRACH TIE WAS CHANGED TO A NEW ONE. Z GUARD WAS APPLIED AND COVERED WITH MEPILEX. WILL REFER TO ELECTRONICS ENGINEER.
[2018-01-08] MEDS: IV 1/2NS 1000 ML 1,000 ML IV PRN ×2 (05:16→21:32)
[2018-01-08] MEDS: OXYBUTYNIN CHLORIDE 5 MG TABLET GT SCH ×3 (05:16→21:28)
--- NOTE | 2018-01-08 07:00 | NUR ---
PT IN BED RESTING COMFORTABLY. BREATHING EVENLY. NO SOB. NO ACUTE EVENT DURING THE NIGHT. GTF UVALDO WELL W/ HOB ELEVATED. SUCTIONED FREQUENTLY AND REPOSITIONED ROUTINELY. NEEDS ATTENDED. CLEANED AND DRIED. VSS. CALL LIGHT WITHIN REACH, WILL CONT TO MONITOR AND WILL ENDORSE TO AM SHIFT FOR JERMAINE AND TO RELAY TO DR BRANDON FOR A POSSIBLE ORDER FOR CXR DUE TO INCREASED SECRETION.
--- NOTE | 2018-01-08 07:40 | NUR ---
MS RN NOTES RECEIVED PATIENT IN THE BED ON TRACHEA DEPENDED, NON VERBAL. NO ACUTE DISTRESS NOTED. BREATHING UNLABORED. NO SOB NOTED. ON G-TUBE FEEDING JEVITY 1.2 ML AT 50 ML/HR, NO RESIDUAL, PLACEMENT CHECKED. INFUSING NS AT 75 ML/HR ON LEFT HAND INTACT. HOB KEEP ELEVATED. SAFETY MEASURES IN PLACE. NEEDS ATTENDED AND ANTICIPATED. CALL LIGHT WITHIN TO REACH. WILL CONTINUE TO MONITOR ACCORDINGLY
[2018-01-08 07:52] LABS: BASOPHILS # (AUTO) 0.1 /CMM (0.0-0.2); BASOPHILS % (AUTO) 1.2 % (0.0-2.0); EOSINOPHILS % (AUTO) 3.3 % (0.0-6.0); HEMATOCRIT 37 % (33-45); HEMOGLOBIN 12.3 g/dL (11.5-14.8); LYMPHOCYTES # (AUTO) 1.3 /CMM (0.8-4.8); LYMPHOCYTES % (AUTO) 23.6 % (20.0-44.0); MEAN CORPUSCULAR HGB CONC 33 g/dl (31.0-36.0); MEAN CORPUSCULAR VOLUME 86 fL (82-100); MONOCYTES # (AUTO) 0.5 /CMM (0.1-1.30); MONOCYTES % (AUTO) 8.4 % (2.0-12.0); NEUTROPHILS # (AUTO) 3.6 /CMM (1.8-8.9); NEUTROPHILS % (AUTO) 63.5 % (43.0-81.0); PLATELET COUNT (AUTO) 198 /CMM (150-450); RED BLOOD CELL COUNT(AUTO) 4.35 MIL/uL (4.0-5.2); WHITE BLOOD COUNT (AUTO) 5.7 K/uL (4.3-11.0)
[2018-01-08 08:00] VITALS: BP 125/69
[2018-01-08 08:00] LABS: CALCIUM, SERUM 8.5 mg/dL (8.5-10.1); CREATININE 0.3 mg/dL (0.6-1.3); PHOSPHORUS 3.4 mg/dL (2.5-4.9); POTASSIUM 3.7 mmol/L (3.5-5.1)
[2018-01-08] MEDS: ACETYLCYSTEINE 10% SOLN 400 MG/4 ML VIAL NEB SCH ×3 (08:03→23:11)
--- NOTE | 2018-01-08 08:54 | NUR ---
WOUND CARE CONSULT: PT SEEN FOR RT SIDE OF NECK MOISTURE ASSOCIATED SKIN IRRITATION. PT TENDS TO KEEP HER HEAD TURNED TO RT SIDE WITH SHOULDER UP AND CHIN/JAW RESTING ON SHOULDER. RECOMMENDATIONS MADE FOR SKIN PROTECTION AND CARE. DISCUSSED WITH NURSING STAFF. PT IS INCONTINENT. SKIN TO BE KEPT CLEAN AND DRY. PT ON FIRST STEP CIRRUS LOW AIRLOSS MATTRESS. ALL SKIN PROTECTION MEASURES IN PLACE. WILL SEE PRN. TALBOT IN AGREEMENT WITH PLAN OF CARE. Addendum: 01/08/18 at 0856 by GILBERT ROBERTS WNDNU Amended: Links added.
[2018-01-08] MEDS: LEVOTHYROXINE SODIUM 50 MCG TABLET GT SCH (09:14)
[2018-01-08] MEDS: LEVETIRACETAM SOL (5 ML) 100 MG/ML UDC GT SCH ×3 (09:14→16:17)
[2018-01-08] MEDS: VALPROIC ACID 250 MG/5 ML UDC GT SCH ×2 (09:14→16:17)
[2018-01-08] MEDS: LACTOBACILLUS RHAMNOSUS GG 1 EACH CAP.SPRINK GT SCH ×2 (09:14→16:17)
[2018-01-08] MEDS: PANTOPRAZOLE 40 MG VIAL IV SCH (09:14)
[2018-01-08] MEDS: PROSOURCE / PROSTAT (PYXIS) 30 ML UDC GT SCH (09:14)
[2018-01-08] MEDS: PHENOBARBITAL 30 MG TABLET GT SCH ×2 (09:14→16:17)
[2018-01-08] MEDS: TOPIRAMATE 25 MG TABLET GT SCH ×2 (09:15→16:17)
[2018-01-08 16:00] VITALS: BP 117/73
[2018-01-08] MEDS: JEVITY 1.2 CAL 1,000 ML BOTTLE GT SCH (16:18)
--- NOTE | 2018-01-08 18:52 | NUR ---
MS RN NOTES RECEIVED PATIENT IN THE BED ON TRACHEA DEPENDED, NON VERBAL. NO ACUTE DISTRESS NOTED. BREATHING UNLABORED. NO SOB NOTED. ON G-TUBE FEEDING JEVITY 1.2 ML AT 50 ML/HR, NO RESIDUAL, PLACEMENT CHECKED. INFUSING NS AT 75 ML/HR ON LEFT HAND INTACT. HOB KEEP ELEVATED. SAFETY MEASURES IN PLACE. DUE MEDICATIONS GIVEN, NO ASE NOTED, NEED ATTENDED AND ANTICIPATED. KEPT CLEAN DRY AND COMFORTABLE. SAFETY MEASURES IN PLACE. CALL LIGHT WITHIN REACH. WILL ENDORSE TO NIGHT NURSE FOR CONTINUITY OF CARE.
[2018-01-08 19:46] VITALS: BP 114/73
[2018-01-08 20:00] VITALS: BP 114/73
[2018-01-08] MEDS: ENOXAPARIN SODIUM 40 MG/0.4 ML DISP.SYRIN SQ SCH (21:28)
--- NOTE | 2018-01-08 23:19 | NUR ---
PT RCVD POLI'D ON COOL AEROSOL WITH CHARTED SETTINGS. SX DONE. PT TRACH PATENT AND SECURE. NO RESP DISTRESS OR SOB NOTED AT THIS TIME. AMBU BAG AT BEDSIDE. WILL CONTINUE TO MONITOR. Addendum: 01/08/18 at 2320 by JORGE LAGOS RT Amended: Links added.
[2018-01-09] MEDS: OXYBUTYNIN CHLORIDE 5 MG TABLET GT SCH ×3 (05:40→21:34)
--- NOTE | 2018-01-09 06:33 | NUR ---
PT RESTING IN BED IN TABLE CONDITION. NO RESP DISTRESS. REMAINED ON O2 AT 5LPM WITH COOL AEROSOL. TRACH IN PLACE. SUCTIONED FREQUENTLY . REPOSITIONED ROUTINELY. GOOD SKIN CARE RENDERED, CLEANED AND DRIED. HOB ELEVATED. SRX3. CALL LIGHT WITHIN REACH, WILL CONT TO MONITOR AND WILL ENDORSE TO AM SHIFT FOR JERMAINE.
[2018-01-09] MEDS ORDERED: LEVOTHYROXINE SODIUM 50 MCG TABLET GT SCH (07:30)
--- NOTE | 2018-01-09 07:36 | NUR ---
MS RN OPENING NOTES PATIENT RECEIVED IN BED IN NO ACUTE SIGNS OF DISTRESS. HOB ELEVATED. OPEN HER EYES AND NON-VERBAL. PT ON COOL AEROSOL TRACH COLLAR @ 5LPM, 28% Fi02, TOLERATING WELL WITH NO SIGNS OF SOB NOTED. G-TUBE IN PLACE WITH FEEDING OF JEVITY 1.2 @ 50ML/HR ONGOING, TOLERATING WELL. ASPIRATION PRECAUTIONS MAINTAINED. IV ACCESS ON RIGHT HAND DISLODGED, NEW IV ACCESS INSERTED TO LEFT WRIST G#22 AND SECURED WELL WITH TAPE, IVF OF 1/2 NS @ 75ML/HR CONTINUES. SAFETY MEASURES IN PLACE. BED IN LOW LOCKED POSITION WITH SR UP X3. CALL LIGHT WITHIN REACH, WILL CONT TO MONITOR PT ACCORDINGLY.
[2018-01-09] MEDS: ACETYLCYSTEINE 10% SOLN 400 MG/4 ML VIAL NEB SCH ×3 (07:39→22:49)
[2018-01-09] MEDS: LEVOTHYROXINE SODIUM 50 MCG TABLET GT SCH (07:41)
[2018-01-09 08:00] VITALS: BP 153/81
[2018-01-09] MEDS: PHENOBARBITAL 30 MG TABLET GT SCH ×2 (09:23→17:38)
[2018-01-09] MEDS: TOPIRAMATE 25 MG TABLET GT SCH ×2 (09:23→17:38)
[2018-01-09] MEDS: LACTOBACILLUS RHAMNOSUS GG 1 EACH CAP.SPRINK GT SCH ×2 (09:23→17:38)
[2018-01-09] MEDS: PANTOPRAZOLE 40 MG VIAL IV SCH (09:26)
[2018-01-09] MEDS: PROSOURCE / PROSTAT (PYXIS) 30 ML UDC GT SCH (09:27)
[2018-01-09] MEDS: VALPROIC ACID 250 MG/5 ML UDC GT SCH ×2 (09:27→17:38)
[2018-01-09] MEDS: LEVETIRACETAM SOL (5 ML) 100 MG/ML UDC GT SCH ×3 (09:27→17:38)
[2018-01-09] MEDS: IV 1/2NS 1000 ML 1,000 ML IV PRN (10:18)
[2018-01-09 16:00] VITALS: BP 140/76
--- NOTE | 2018-01-09 19:23 | NUR ---
MS RN CLOSING NOTES PATIENT RESTING COMFORTABLY, ALL NEEDS ANTICIPATED, NO SIGNS OF ACUTE DISTRESS NOTED, GT FEEDING TOLERATING WELL, NO GT RESIDUAL NOTED. KEPT CLEAN DRY AND COMFORTABLE. ENDORSED TO DATABASE SECURITY ADMINISTRATOR NURSE FOR CONTINUOUS CARE AND MANAGEMENT.
--- NOTE | 2018-01-09 19:36 | NUR ---
RECEIVED PT IN BED IN STABLE CONDITION W/ THE CG AT THE BED SIDE. PT REMAINED NON- VERBAL. BREATHING EVENLY WITH TRACH IN PLACE. O2 AT 5LPM FIO2:28% AND COOL AEROSOL. GT IN PLACE . W/ HOB ELEVATED. IV ON THE L HAND INTACT AND PATENT W/ ONGOING IVF HYDRATION. NO S/S OF PAIN OR DISCOMFORT NOTED. SUCTIONED.OFFLOADED THE HEELS . BED LOW LOCKED. CALL LIGHT WITHIN REACH . WILL CONT TO MONITOR ,
[2018-01-09 20:00] VITALS: BP 114/63
[2018-01-09] MEDS: JEVITY 1.2 CAL 1,000 ML BOTTLE GT SCH (21:34)
[2018-01-09] MEDS: ENOXAPARIN SODIUM 40 MG/0.4 ML DISP.SYRIN SQ SCH (21:35)
--- NOTE | 2018-01-10 03:48 | NUR ---
PATIENT RECEIVED ON 28% AEROSOL T-TUBE, TOLERATING WITH NO DISTRESS/SOB NOTED. SUCTIONED FOR MINIMAL, THIN, YELLOW SECRETIONS. GIVEN IN-LINE TREATMENT WITH NO ADVERSE REACTIONS. AMBU BAG AT BEDSIDE. Addendum: 01/10/18 at 0349 by STACY FRANCES RT Amended: Links added.
[2018-01-10] MEDS: OXYBUTYNIN CHLORIDE 5 MG TABLET GT SCH ×3 (05:58→21:16)
--- NOTE | 2018-01-10 06:26 | NUR ---
PT RESTING IN BED COMFORTABLY. BREATHING EVENLY. W/ TRACH COOL AEROSOL AND O2 AT 5LPM. NO SOB. NO ACUTE EVENT DURING THE NIGHT. NO S/S OF DISCOMFORT. SUCTIONED PRN . REPOSITIONED ROUTINELY. BED BATH GIVEN AND GOOD SKIN CARE RENDERED. CLEANED AND DRIED. HOB ELEVATED. CALL LIGHT WITHIN REACH, WILL CONT TO MONITOR AND WILL ENDORSE TO AM SHIFT FOR JERMAINE.
[2018-01-10] MEDS: ACETYLCYSTEINE 10% SOLN 400 MG/4 ML VIAL NEB SCH ×3 (07:54→23:53)
[2018-01-10 08:00] VITALS: BP 124/57
[2018-01-10 08:29] LABS: CALCIUM, SERUM 8.6 mg/dL (8.5-10.1); CREATININE 0.4 mg/dL (0.6-1.3); PHOSPHORUS 3.9 mg/dL (2.5-4.9); POTASSIUM 3.9 mmol/L (3.5-5.1)
[2018-01-10 08:40] LABS: BASOPHILS # (AUTO) 0.1 /CMM (0.0-0.2); BASOPHILS % (AUTO) 1.1 % (0.0-2.0); EOSINOPHILS % (AUTO) 3.3 % (0.0-6.0); HEMATOCRIT 38 % (33-45); HEMOGLOBIN 12.6 g/dL (11.5-14.8); LYMPHOCYTES # (AUTO) 1.5 /CMM (0.8-4.8); LYMPHOCYTES % (AUTO) 24.2 % (20.0-44.0); MEAN CORPUSCULAR HGB CONC 34 g/dl (31.0-36.0); MEAN CORPUSCULAR VOLUME 85 fL (82-100); MONOCYTES # (AUTO) 0.4 /CMM (0.1-1.30); NEUTROPHILS # (AUTO) 4.2 /CMM (1.8-8.9); NEUTROPHILS % (AUTO) 65.4 % (43.0-81.0); PLATELET COUNT (AUTO) 196 /CMM (150-450); RED BLOOD CELL COUNT(AUTO) 4.43 MIL/uL (4.0-5.2); WHITE BLOOD COUNT (AUTO) 6.4 K/uL (4.3-11.0)
[2018-01-10] MEDS: LEVOTHYROXINE SODIUM 50 MCG TABLET GT SCH (09:35)
[2018-01-10] MEDS: TOPIRAMATE 25 MG TABLET GT SCH ×2 (09:36→16:06)
[2018-01-10] MEDS: LACTOBACILLUS RHAMNOSUS GG 1 EACH CAP.SPRINK GT SCH ×2 (09:36→16:06)
[2018-01-10] MEDS: PANTOPRAZOLE 40 MG VIAL IV SCH (09:36)
[2018-01-10] MEDS: VALPROIC ACID 250 MG/5 ML UDC GT SCH ×2 (09:36→16:06)
[2018-01-10] MEDS: LEVETIRACETAM SOL (5 ML) 100 MG/ML UDC GT SCH ×3 (09:36→16:06)
[2018-01-10] MEDS: PROSOURCE / PROSTAT (PYXIS) 30 ML UDC GT SCH (09:36)
[2018-01-10] MEDS: PHENOBARBITAL 30 MG TABLET GT SCH ×2 (09:36→16:06)
[2018-01-10] MEDS: JEVITY 1.2 CAL 1,000 ML BOTTLE GT SCH (12:06)
--- NOTE | 2018-01-10 14:04 | NUR ---
MS RN OPENING NOTE RECEIVED PATIENT IN BED LOCKED IN LOWEST POSITION WITH SIDE RAILS UP x2 FOR SAFETY. OBTUNDED, NON-VERBAL. NO FACIAL GRIMACING NOTED FOR PAIN. NO SOB OR DISTRESS NOTED. CALL LIGHT WITHIN REACH. TRACH PRESENT PORTEX #7 WITH COOL AEROSOL TOLERATING WELL. HAS WOUND TREATMENT TO BE DONE THROUGHOUT SHIFT. G-TUBE IN PLACE INTACT AND FLUSHING WELL. TUBE FEEDING RUNNING AT 44 ML//HR TOLERATING WELL 5CC RESIDUAL, OFF AT 8 AM AND ON AT 12 NOON. IV INTACT AND PATENT NO FLUIDS RUNNING AT THIS TIME. WILL CONTINUE TO MONITOR THROUGHOUT SHIFT.
[2018-01-10 16:00] VITALS: BP 128/86
--- NOTE | 2018-01-10 18:41 | NUR ---
MS RN CLOSING NOTE PATIENT IN BED LOCKED IN LOWEST POSITION WITH SIDE RAILS UP x2 FOR SAFETY. OBTUNDED, NON-VERBAL. NO FACIAL GRIMACING NOTED FOR PAIN. NO SOB OR DISTRESS NOTED. CALL LIGHT WITHIN REACH AT ALL TIMES. SAFETY MEASURES IMPLEMENTED. ALL DUE MEDICATIONS GIVEN ORDERED TRACH PRESENT PORTEX #7 WITH COOL AEROSOL TOLERATING WELL. HAS WOUND TREATMENT DONE.T. G-TUBE IN PLACE INTACT AND FLUSHING WELL. TUBE FEEDING RUNNING AT 44 ML//HR TOLERATING WELL 5CC RESIDUAL 12 NOON. IV INTACT AND PATENT NO FLUIDS RUNNING AT THIS TIME. WILL ENDORSE TO BIOPHYSICS SCIENTIST NURSE FOR JERMAINE.
--- NOTE | 2018-01-10 19:30 | NUR ---
RECEIVED PATIENT IN BED AWAKE, OBTUNDED. NO ACUTE DISTRESS NOTED. NO SIGNS OF PAIN NOTED. TRACH INTACT; ON COOL AEROSOL 5 L O2 FOR FIO2 28%. IV SITE PATENT, INTACT; FLUSHED. GT PATENT, INTACT; GTF ONGOING ORDERED. PATIENT TOLERATING GTF. NO RESIDUAL ASPIRATED. HOB RAISED. ON LOW BED WITH BILATERAL UPPER SIDE RAILS UP. CALL STANLEY WITHIN EASY REACH. WILL CONTINUE TO MONITOR.
[2018-01-10 20:00] VITALS: BP 140/84
[2018-01-10] MEDS: ENOXAPARIN SODIUM 40 MG/0.4 ML DISP.SYRIN SQ SCH (21:16)
[2018-01-10] MEDS ORDERED: ACETYLCYSTEINE 10% SOLN 400 MG/4 ML VIAL ONE (23:46)
[2018-01-10] MEDS: ALBUTEROL FS 2.5 MG/3 ML VIAL.NEB NEB PRN (23:53)
[2018-01-10] MEDS: IPRATROPIUM NEB FS 0.5 MG/2.5 ML AMPUL.NEB NEB PRN (23:53)
[2018-01-11] MEDS: OXYBUTYNIN CHLORIDE 5 MG TABLET GT SCH ×3 (05:27→20:46)
--- NOTE | 2018-01-11 06:00 | NUR ---
PATIENT ASLEEP, EASILY AROUSABLE. RESPIRATIONS EVEN. NO SIGNS OF PAIN NOTED. DUE MEDS GIVEN WITH NO ASE NOTED. NEEDS ATTENDED. KEPT CLEAN, DRY, AND COMFORTABLE. SAFETY PRECAUTIONS AND COMFORT MEASURES IN PLACE. WILL GIVE REPORT TO DAY SHIFT FOR CONTINUITY OF CARE.
--- NOTE | 2018-01-11 07:32 | NUR ---
MS/RN OPENING NOTE PATIENT IN BED IN STABLE CONDITION. OBTUNDED, NON VERBAL, OPEN EYES. ON COOL AEROSOL WITH FIO2 OF 28%. NO SIGNS OF ACUTE DISTRESS. NO COMPLAIN OF PAIN OR DISCOMFORT. ON CONTACT ISOLATION FOR ESBL URINE AND ISOLATION FOR SPUTUM. ON G TUBE FEEDING JEVITY 1.2 @ 44MLS/HR. TOLERATED WELL. HOB ELEVATED AT ALL TIMES FOR ASPIRATION PRECAUTION. ALL NEEDS ATTENDED TO. CALL LIGHT WITHIN REACH. WILL CONTINUE TO MONITOR TO ENSURE SAFETY.
[2018-01-11] MEDS: ACETYLCYSTEINE 10% SOLN 400 MG/4 ML VIAL NEB SCH ×3 (07:35→23:27)
[2018-01-11 08:00] VITALS: BP 133/75
[2018-01-11] MEDS: TOPIRAMATE 25 MG TABLET GT SCH ×2 (09:21→16:19)
[2018-01-11] MEDS: LEVETIRACETAM SOL (5 ML) 100 MG/ML UDC GT SCH ×3 (09:21→16:19)
[2018-01-11] MEDS: PHENOBARBITAL 30 MG TABLET GT SCH ×2 (09:21→16:19)
[2018-01-11] MEDS: PANTOPRAZOLE 40 MG VIAL IV SCH (09:21)
[2018-01-11] MEDS: LEVOTHYROXINE SODIUM 50 MCG TABLET GT SCH (09:21)
[2018-01-11] MEDS: VALPROIC ACID 250 MG/5 ML UDC GT SCH ×2 (09:21→16:19)
[2018-01-11] MEDS: LACTOBACILLUS RHAMNOSUS GG 1 EACH CAP.SPRINK GT SCH ×2 (09:21→16:19)
[2018-01-11] MEDS: PROSOURCE / PROSTAT (PYXIS) 30 ML UDC GT SCH (09:21)
[2018-01-11 10:30] VITALS: BP 114/74
--- NOTE | 2018-01-11 10:40 | NUR ---
MS/APRN PATIENT TRANSFER TO ROOM 319, REPORT GIVEN TO [place] PRESCOTT FOR JERMAINE. Addendum: 01/11/18 at 1041 by MAIKOL FUNK RN RESPONSIBLE REPUBLICAN DAUGHTER AT BEDSIDE AWARE.
--- NOTE | 2018-01-11 10:45 | NUR ---
PT WAS RECEIVED MAIKOL AT THIS TIME, PT WAS NOTED TO BE OBTUNDED AND NONVERBAL, WITH A TRACH PORTEX #7, NOTED TO HAVE G-TUBE WITH FEEDING CURRENTLY ON HOLD, REDNESS NOTED ON SACRUM AND IRRITATION ON THE NECK, IV IS PATENT AND INTACT, SAFETY PRECAUTIONS IN PLACE, CALL LIGHT WITHIN REACH, WILL MONITOR ACCORDINGLY
--- NOTE | 2018-01-11 10:54 | NUR ---
MS/RN RECEIVED CALL FROM YUE HWANG AND MADE AWARE DAUGHTERS REQUESTING NORCO TO BE DISCONTINUED FROM THEIR MOTHER'S RECORD SECONDARY TO BRAIN INJURY THEY DON'T WANT THEIR MOTHER TO HAVE NORCO. PER YUE HWANG DC [facility]CO.
[2018-01-11] MEDS: JEVITY 1.2 CAL 1,000 ML BOTTLE GT SCH (15:46)
[2018-01-11 18:04] VITALS: BP 114/62
--- NOTE | 2018-01-11 18:36 | NUR ---
RN CLOSING NOTES PT IN BED AT LOWEST AND LOCKED POSITION WITH SIDE RAILS UP X2, PT IS OBTUNDED AND NONVERBAL, NOTED TO HAVE TRACH PORTEX #7 WITH COOL AEROSOL, PT HAS A GTUBE WITH FEEDING RUNNING 44ML/HR, IV IS PATENT AND INTACT, SAFETY PRECAUTIONS IN PLACE, CALL LIGHT WITHIN REACH, WILL ENDORSE TO ONCOMING CARTOGRAPHIC AIDE NURSE FOR CONTINUITY OF CARE
--- NOTE | 2018-01-11 19:20 | NUR ---
RN NOTES: RECEIVED LYING ON BED,ISOLATION PRECAUTION OBSERVED FOR SPUTUM,ESBL +URINE,OBSTUNDED AND NON VERBAL,OPEN EYES, TRACH ONSITE PORTEX#7 ON COOL AEROSOL FI02 OF 28%,NO SIGN OR RESPIRATORY DISTRESS OR SOB,g-TUBE IN SITE WITH FEEDING ON GOING OF JEVITY 1.2 AT 44ML/HR, FEEDING TOLERATED WELL.FALL, SAFETY AND ASPIRATION PRECAUTION OBSERVED,BED LOW AND LOCKED, CALL LIGHT WITHIN EASY REACH,ON CLOSE VISUAL CHECK.
[2018-01-11 20:00] VITALS: BP 147/89
[2018-01-11] MEDS: ENOXAPARIN SODIUM 40 MG/0.4 ML DISP.SYRIN SQ SCH (20:48)
--- NOTE | 2018-01-11 21:41 | NUR ---
RN NOTES: TURNING AND REPOSITIONING DONE,BED BATH RENDERED, DRESSING DONE,SUCTIONING DONE, REQUEST RT TO GIVE NEBULIZATION PRN.KEPT IN SEMI FOWLERS POSITION.
[2018-01-11] MEDS: ZOLPIDEM TARTRATE 5 MG TABLET PO PRN (23:20)
--- NOTE | 2018-01-11 23:21 | NUR ---
RN NOTES: TURNING AND SUCTIONING DONE, DAUGHTER PRESENT AT BED SIDE, REQUEST FOR PATIENT SLEEPING PILL, V/S WITHIN RANGE, AMBIEN GIVEN PER DAUGHTER REQUEST.
--- NOTE | 2018-01-11 23:37 | NUR ---
PT RCVD POLI'D ON COOL AEROSOL WITH CHARTED SETTINGS. SX DONE. PT TRACH PATENT AND SECURE. NO RESP DISTRESS OR SOB NOTED AT THIS TIME. AMBU BAG AT BEDSIDE. WILL CONTINUE TO MONITOR. Addendum: 01/11/18 at 2337 by JORGE LAGOS RT Amended: Links added.
--- NOTE | 2018-01-11 23:58 | NUR ---
RN NOTES: TURNING AND REPOSITIONING DONE, NEBULIZATION ON GOING, SPO2-97%, LOOKS COMFORTABLE, NO PAIN OR DISCOMFORT NOTED.DAUGHTER CECIL PRESENT AT BEDSIDE.
--- NOTE | 2018-01-12 01:08 | NUR ---
RN NOTES; ASLEEP IN THE NIGHT, KEPT ON CLOSE VISUAL CHECK, FEEDING ONGOING,NO SIGN OF RESPIRATORY DISTRESS NOTED.
[2018-01-12] MEDS: OXYBUTYNIN CHLORIDE 5 MG TABLET GT SCH ×3 (04:09→21:13)
--- NOTE | 2018-01-12 06:41 | NUR ---
RN NOTES: TURNING AND REPOSITIONING DONE, FEEDING ONGOING, SPO2-98% ON COOL AEROSOL,FALL,SAFETY, ASPIRATION AND ISOLATION PRECAUTION OBSERVED, ENDORSED FOR CONTINUITY OF CARE.
--- NOTE | 2018-01-12 07:00 | NUR ---
MS RN OPENING NOTES PT OBTUNDED AND NONVERBAL, WITH A TRACH PORTEX #7, G-TUBE IN PLACE WITH FEEDING CURRENTLY ONGOING, REDNESS NOTED ON SACRUM AND IRRITATION ON THE NECK, IV IS PATENT AND INTACT, SAFETY PRECAUTIONS IN PLACE, CALL LIGHT WITHIN REACH, WILL MONITOR ACCORDINGLY
[2018-01-12] MEDS: ACETYLCYSTEINE 10% SOLN 400 MG/4 ML VIAL NEB SCH ×3 (07:37→23:47)
[2018-01-12 08:00] VITALS: BP 142/93
[2018-01-12] MEDS: LEVOTHYROXINE SODIUM 50 MCG TABLET GT SCH (08:15)
[2018-01-12] MEDS: TOPIRAMATE 25 MG TABLET GT SCH ×2 (08:15→17:10)
[2018-01-12] MEDS: PHENOBARBITAL 30 MG TABLET GT SCH ×2 (08:15→17:09)
[2018-01-12] MEDS: PANTOPRAZOLE 40 MG VIAL IV SCH (08:15)
[2018-01-12] MEDS: VALPROIC ACID 250 MG/5 ML UDC GT SCH ×2 (08:15→17:09)
[2018-01-12] MEDS: LACTOBACILLUS RHAMNOSUS GG 1 EACH CAP.SPRINK GT SCH ×2 (08:15→17:10)
[2018-01-12] MEDS: LEVETIRACETAM SOL (5 ML) 100 MG/ML UDC GT SCH ×3 (08:16→17:09)
[2018-01-12] MEDS: PROSOURCE / PROSTAT (PYXIS) 30 ML UDC GT SCH (11:30)
--- NOTE | 2018-01-12 12:00 | NUR ---
INCREASED G-TUBE FEEDING TO 50 ML/HR PER MD
[2018-01-12 16:00] VITALS: BP 144/98
--- NOTE | 2018-01-12 19:15 | NUR ---
MS RN OPENING NOTES PT OBTUNDED AND NONVERBAL, WITH A TRACH PORTEX #7, G-TUBE IN PLACE WITH FEEDING CURRENTLY ONGOING 50ML/HR, PT TURNED AND REPOSITIONED Q2HR. IV IS PATENT AND INTACT, SAFETY PRECAUTIONS IN PLACE, CALL LIGHT WITHIN REACH. SENIOR SALES MANAGER AT THE BED SITE.
--- NOTE | 2018-01-12 19:30 | NUR ---
MS RN OPENING NOTE Patient was seen lying in bed awake but non-verbal and responsive only to firm pressure/pain. Patient has tracheostomy connected to cool aerosol O2; patient's breathing is even and non-labored. RT is currently in the room providing suctioning. G-tube is connected to Jevity tube feed at 50ml/hr. IV in the left wrist appears to be leaking when flushed; I will remove and start a new IV line; patient currently has no IVF or IV medications. Bed is low/locked for safety, two side rails up, and call up within reach. Patient's caregiver is at the bedside and was educated on use of the call up. Will continue to monitor.
[2018-01-12 20:00] VITALS: BP 144/81
--- NOTE | 2018-01-12 20:30 | NUR ---
MS RN NOTE - New IV IV in the left wrist was removed due to leaking when flushed. New IV 22g was inserted into the right wrist; positive blood return, flushed easily, no signs of leaking or infiltration.
[2018-01-12] MEDS: ENOXAPARIN SODIUM 40 MG/0.4 ML DISP.SYRIN SQ SCH (21:14)
[2018-01-13] MEDS: JEVITY 1.2 CAL 1,000 ML BOTTLE GT SCH (00:45)
[2018-01-13] MEDS: OXYBUTYNIN CHLORIDE 5 MG TABLET GT SCH ×3 (05:26→21:18)
--- NOTE | 2018-01-13 07:20 | NUR ---
MS/RN OPENING NOTE THE PATIENT IS RECEIVED IN BED AND SLEEPING. PATIENT IS RESPONSIVE ONLY TO FIRM PRESSURE BY OPENING EYES. PATIENT NON-VERBAL. TRACHEOSTOMY IS CONNECTED TO COOL AEROSOL. RESPIRATION REGULAR AND UNLABORED AND OXYGEN SATURATION AT 99%.GT FEEDING ON AND INFUSING JEVITY AT 50ML/HR/ HOB ELEVATED. RIGHT WRIST G 22 PATENT AND SALINE LOCKED. BED LOW AND LOCKED. SIDE RAILS UP X2. CALL LIGHT WITHIN REACH. WILL CONTINUE TO MONITOR.
[2018-01-13 08:00] VITALS: BP 130/67
[2018-01-13] MEDS: ACETYLCYSTEINE 10% SOLN 400 MG/4 ML VIAL NEB SCH ×2 (08:01→14:54)
[2018-01-13] MEDS: LACTOBACILLUS RHAMNOSUS GG 1 EACH CAP.SPRINK GT SCH ×2 (08:13→17:05)
[2018-01-13] MEDS: PANTOPRAZOLE 40 MG VIAL IV SCH (08:13)
[2018-01-13] MEDS: VALPROIC ACID 250 MG/5 ML UDC GT SCH ×2 (08:13→17:05)
[2018-01-13] MEDS: PHENOBARBITAL 30 MG TABLET GT SCH ×2 (08:14→17:05)
[2018-01-13] MEDS: LEVETIRACETAM SOL (5 ML) 100 MG/ML UDC GT SCH ×3 (08:14→17:05)
[2018-01-13] MEDS: LEVOTHYROXINE SODIUM 50 MCG TABLET GT SCH (08:14)
[2018-01-13] MEDS: TOPIRAMATE 25 MG TABLET GT SCH ×2 (08:14→17:05)
[2018-01-13] MEDS: PROSOURCE / PROSTAT (PYXIS) 30 ML UDC GT SCH (08:24)
[2018-01-13] MEDS: ACETAMINOPHEN 325 MG TABLET PO PRN (14:45)
--- NOTE | 2018-01-13 14:46 | NUR ---
MS/RN NOTE THE PATIENT IS NOTED TO HAVE FACIAL GRIMACING. TURNING AND REPOSITIONING IS DONE BUT THE PATIENT STILL NOTED WITH FACIAL GRIMACING. TYLENOL 650 MG VIA GT IS GIVEN PER ORDER. WILL CONTINUE TO MONITOR FOR THE EFFECTIVENESS OF THE MEDICATION.
[2018-01-13 16:00] VITALS: BP 120/66
--- NOTE | 2018-01-13 18:11 | NUR ---
MS/RN CLOSING NOTE THE PATIENT IN BED AND EYES OPEN. THE PATIENT IS RESPONSIVE TO TACTILE STIMULI. TRACHEOSTOMY IS CONNECTED TO COOL AEROSOL. RESPIRATION REGULAR AND UNLABORED AND OXYGEN SATURATION AT 100%. RIGHT WRIST G 22 PATENT AND SALINE LOCKED. GT FEEDING JEVITY AT 50 ML/HR INFUSING. ABDOMEN SOFT AND NON-DISTENDED. NO RESIDUAL NOTED. HEAD OF BED IS ELEVATED TO PREVENT ASPIRATION. GOOD AND GENTLE SKIN CARE RENDERED. KEPT CLEAN, DRY AND COMFORTABLE. TURNED AND REPOSITIONED Q2HR AND NEEDED. PRN SUCTION DONE AND THE PATIENT TOLERATED SUCTIONING WELL. ALL NEEDS ATTENDED AND ANTICIPATED. BED LOW AND LOCKED. SIDE RAILS UP X3. CALL LIGHT WITHIN REACH. WILL ENDORSE TO LAND CONSERVATION SPECIALIST.
--- NOTE | 2018-01-13 19:30 | NUR ---
RECEIVED PATIENT AWAKE IN BED. OBTUNDED, NONVERBAL. NO ACUTE DISTRESS NOTED. NO SIGNS OF PAIN NOTED. TRACH INTACT; ON 5 L O2 WITH COOL AEROSOL. IV SITE PATENT, INTACT; FLUSHED. GT PATENT, INTACT; GTF ONGOING. NO RESIDUAL ASPIRATED. HOB RAISED. CONTACT ISOLATION MAINTAINED FOR ESBL POS KPNE IN SPUTUM. ON LOW BED WITH BILATERAL UPPER SIDE RAILS UP. CALL STANLEY WITHIN EASY REACH. WILL CONTINUE TO MONITOR. CAREGIVER AT BEDSIDE.
[2018-01-13 20:00] VITALS: BP 133/68
[2018-01-13 20:04] VITALS: BP 133/68
[2018-01-13] MEDS: ENOXAPARIN SODIUM 40 MG/0.4 ML DISP.SYRIN SQ SCH (21:18)
[2018-01-14] MEDS: ACETYLCYSTEINE 10% SOLN 400 MG/4 ML VIAL NEB SCH ×3 (00:14→15:18)
[2018-01-14] MEDS: JEVITY 1.2 CAL 1,000 ML BOTTLE GT SCH (05:36)
[2018-01-14] MEDS: OXYBUTYNIN CHLORIDE 5 MG TABLET GT SCH ×3 (05:36→21:08)
--- NOTE | 2018-01-14 07:00 | NUR ---
PATIENT IN BED AWAKE. RESPIRATIONS EVEN. NO SIGN OF PAIN NOTED. DUE MEDS GIVEN WITH NO ASE NOTED. GTF ONGOING. NEEDS ATTENDED. SAFETY PRECAUTIONS AND COMFORT MEASURES IN PLACE. WILL GIVE REPORT TO DAY SHIFT FOR CONTINUITY OF CARE.
--- NOTE | 2018-01-14 07:47 | NUR ---
MS RN NOTES PATIENT RECEIVED INSIDE ROOM. AWAKE, OBTUNDED, NON-VERBAL. ON TRACH WITH COOL AEROSOL. NO ACUTE DISTRESS. NO FACIAL GRIMACE OR INDICATIONS OF PAIN NOTED AT THIS TIME. ONGOING GTF, GT PATENT AND IN PLACE. MAINTAINED ASPIRATION PRECAUTIONS. MAINTAINED HOB ELEVATION AT 45. MAINTAINED ISOLATION PRECAUTIONS. WILL CONTINUE TO MONITOR. BED LOCKED AND IN LOW POSITION. BILATERAL UPPER SIDE RAILS UP AND LOCKED. CALL LIGHT WITHIN EASY REACH
[2018-01-14] MEDS: ALBUTEROL FS 2.5 MG/3 ML VIAL.NEB NEB PRN ×2 (07:50→15:18)
[2018-01-14 08:00] VITALS: BP 126/67
[2018-01-14] MEDS: LACTOBACILLUS RHAMNOSUS GG 1 EACH CAP.SPRINK GT SCH ×2 (08:40→16:31)
[2018-01-14] MEDS: PHENOBARBITAL 30 MG TABLET GT SCH ×2 (08:41→16:31)
[2018-01-14] MEDS: TOPIRAMATE 25 MG TABLET GT SCH ×2 (08:41→16:31)
[2018-01-14] MEDS: LEVOTHYROXINE SODIUM 50 MCG TABLET GT SCH (08:41)
[2018-01-14] MEDS: VALPROIC ACID 250 MG/5 ML UDC GT SCH ×2 (08:41→16:31)
[2018-01-14] MEDS: LEVETIRACETAM SOL (5 ML) 100 MG/ML UDC GT SCH ×3 (08:41→16:31)
[2018-01-14] MEDS: PROSOURCE / PROSTAT (PYXIS) 30 ML UDC GT SCH (08:43)
[2018-01-14] MEDS: PANTOPRAZOLE 40 MG VIAL IV SCH (08:45)
[2018-01-14] MEDS: IPRATROPIUM NEB FS 0.5 MG/2.5 ML AMPUL.NEB NEB PRN (15:21)
[2018-01-14 16:03] VITALS: BP 129/81
--- NOTE | 2018-01-14 18:45 | NUR ---
MS RN NOTES PATIENT RESTING INSIDE ROOM. NON-VERBAL, OBTUNDED. CONTINUE WITH TRACH ON COOL AEROSOL. NO SOB OR ACUTE DISTRESS. CONTINUE WITH GTF AND TOLERATING WELL. ALL NURSING NEEDS ATTENDED AND MET. PATIENT KEPT CLEAN, DRY AND COMFORTABLE. MAINTAINED ASPIRATION PRECAUTIONS. CONTINUE WITH ISOLATION PRECAUTIONS. WILL ENDORSE TO INCOMING SHIFT FOR JERMAINE. BED LOCKED AND IN LOW POSITION. BILATERAL UPPER SIDE RAILS UP AND LOCKED. CALL LIGHT WITHIN EASY REACH
--- NOTE | 2018-01-14 19:10 | NUR ---
MS RN OPENING NOTE Patient was seen lying in bed awake but non-verbal and responsive only to firm pressure/pain. Patient has tracheostomy connected to 5L O2 cool aerosol; patient's breathing is even and non-labored. G-tube is connected to Jevity tube feed at 60ml/hr. IV in the right wrist is intact and patent. Bed is low/locked for safety, two side rails up, and call up within reach. Patient's caregiver is at the bedside and was educated on use of the call up. Patient currently appears to be resting comfortably. Will continue to monitor.
[2018-01-14 20:00] VITALS: BP 132/67
[2018-01-14] MEDS: ENOXAPARIN SODIUM 40 MG/0.4 ML DISP.SYRIN SQ SCH (21:11)
[2018-01-15] MEDS: ACETYLCYSTEINE 10% SOLN 400 MG/4 ML VIAL NEB SCH ×4 (00:07→23:27)
[2018-01-15] MEDS: OXYBUTYNIN CHLORIDE 5 MG TABLET GT SCH ×3 (05:28→22:19)
--- NOTE | 2018-01-15 07:19 | NUR ---
S RN CLOSING NOTE All patient needs attended to. Patient suctioned as needed. Turned/repositioned q2h. Patient is comfortable in bed with no s/s of acute distress. Patient care endorsed to day shift RN. Addendum: 01/15/18 at 0720 by JEREMY LINCOLN RN "" RN CLOSING NOTE
--- NOTE | 2018-01-15 07:30 | NUR ---
MS RN OPENING NOTES PT OBTUNDED AND NONVERBAL, WITH A TRACH PORTEX #7, G-TUBE IN PLACE WITH FEEDING CURRENTLY ONGOING 60ML/HR. IV IS PATENT AND INTACT, SAFETY PRECAUTIONS IN PLACE, CALL LIGHT WITHIN REACH. FEEDING CHANTE AT 0800 AND ON AT 1200. WILL CONTINUE TO MONITOR
[2018-01-15 08:00] VITALS: BP 153/71
[2018-01-15] MEDS: PANTOPRAZOLE 40 MG VIAL IV SCH (08:48)
[2018-01-15] MEDS: LEVOTHYROXINE SODIUM 50 MCG TABLET GT SCH (08:48)
[2018-01-15] MEDS: TOPIRAMATE 25 MG TABLET GT SCH ×2 (08:48→17:13)
[2018-01-15] MEDS: PHENOBARBITAL 30 MG TABLET GT SCH ×2 (08:48→17:13)
[2018-01-15] MEDS: PROSOURCE / PROSTAT (PYXIS) 30 ML UDC GT SCH (08:48)
[2018-01-15] MEDS: LACTOBACILLUS RHAMNOSUS GG 1 EACH CAP.SPRINK GT SCH ×2 (08:48→17:13)
[2018-01-15] MEDS: LEVETIRACETAM SOL (5 ML) 100 MG/ML UDC GT SCH ×3 (08:49→17:13)
[2018-01-15] MEDS: VALPROIC ACID 250 MG/5 ML UDC GT SCH ×2 (08:49→17:14)
[2018-01-15 16:00] VITALS: BP 116/76
--- NOTE | 2018-01-15 19:01 | NUR ---
PT IN BED AT LOWEST AND LOCKED POSITION WITH SIDE RAILS UP X2, PT IS OBTUNDED AND NONVERBAL, NOTED TO HAVE TRACH PORTEX #7 WITH COOL AEROSOL, PT HAS A GTUBE WITH FEEDING RUNNING 60ML/HR, NO RESIDUAL NOTED, IV IS PATENT AND INTACT. PT TERNED AND REPOSITIONED Q2H, KEPT CLEAN AND DRY. SAFETY PRECAUTIONS IN PLACE, CALL LIGHT WITHIN REACH, WILL ENDORSE TO ONCOMING ASSISTANT MANAGER QUALITY MANAGEMENT NURSE FOR CONTINUITY OF CARE
--- NOTE | 2018-01-15 19:32 | NUR ---
MS/RN OPENING NOTES RECEIVED PATIENT IN BED, CAN OPEN EYES, RESPIRATIONS EVEN AND UNLABORED, APHASIC, OBTUNDED, SKIN WARM TO TOUCH, CONTRACTED IN LOWER EXTREMITIES, REQUIRE EXTENSIVE ASSISTANCE, ON COOLING AEROSOL WITH PORTEX 7 CUFFED, FOR REPOSITIONING AND KEEP SKIN INTACT. GTUBE CHECK PATENT W/ NO RESIDUALS, ON IV HEPLOCK, CAREGIVER AT BEDSIDE, MODERATE SECRETIONS OBSERVED, SUCTION NEEDED, NO GRIMACE AND NO GUARDING. GTUBE FEEDING RUNNING AT 60 ML/HR. BED LOCKES. WILL MONITOR.
[2018-01-15 19:56] VITALS: BP 130/76
--- NOTE | 2018-01-15 20:30 | NUR ---
PATIENT RECEIVED TRACHED ON COOL AEROSOL @ 28%. SX DONE, TRACH SECURED AND PATENT. PULSE OX CONNECTED. WATER LEVEL GOOD. NO DISTRESS NOTED AT THIS TIME. WILL MONITOR. Addendum: 01/15/18 at 2316 by NE BLOCK RT Amended: Links added.
[2018-01-15 20:44] VITALS: BP 130/76
--- NOTE | 2018-01-15 20:45 | NUR ---
ms/rn notes MD WAS CONTACTED REGARDING PATIENTS SECRETIONS WITH NEEDED SUCTION PROVIDED BY RN AND RT, ASPIRATIONS RISK AND ORDERED FOR PULMONARY SUCTION AND MONITOIRNG FOR ANY S/S OF ASPIRATIONS, KEEP HOB ELEVATED, PAIN MANAGMENT PREFERED ONLLY NEEDED TYLENOL BY FAMILY WUILL CONTINUE TO MONITOR,
--- NOTE | 2018-01-15 21:00 | NUR ---
TELE/RN NOTES REPORT GIVEN TO [employer] COORDINATORKEN[facility]ON [facility]EDERICK FOR JERMAINE, REQUIRING HIGHER LEVEL OF CARE DUE TO SEVERE SEPSIS PER MD ORDER Addendum: 01/15/18 at 2211 by LETA VAZQUEZ RN PLS DISREGARD THE NOTES FOR A DIFFERENT PATIENT
[2018-01-15] MEDS: ACETAMINOPHEN 325 MG TABLET PO PRN (22:12)
--- NOTE | 2018-01-15 22:12 | NUR ---
MS/RN NOTES PATIETN OBSERVE GRIMACE WITH TEARS IN EYES, REQUIRING MEDICATION TYLENOL 650MG VIA GTUBE FOR PAIN
[2018-01-15] MEDS: ENOXAPARIN SODIUM 40 MG/0.4 ML DISP.SYRIN SQ SCH (22:19)
[2018-01-16] MEDS: OXYBUTYNIN CHLORIDE 5 MG TABLET GT SCH ×3 (04:37→21:07)
--- NOTE | 2018-01-16 06:27 | NUR ---
319-1 MS/RN NOTES PATIENT ABLE TO SLEEP INTERMITENTLY WITH REPOSITIONING AND SUCTIONING NEEDED FOR COMFORT, OFF LOAD EXTREMITIED, ATTENDED TO NEEDS, KEEP BED LOCKED, MONITORED FOR ANY CHANGES. WILL ENDORSE TO AM RN FOR JERMAINE.
[2018-01-16 06:57] LABS: BASOPHILS % (AUTO) 0.9 % (0.0-2.0); EOSINOPHILS % (AUTO) 1.4 % (0.0-6.0); HEMATOCRIT 38 % (33-45); HEMOGLOBIN 12.7 g/dL (11.5-14.8); LYMPHOCYTES # (AUTO) 1.1 /CMM (0.8-4.8); LYMPHOCYTES % (AUTO) 20.9 % (20.0-44.0); MEAN CORPUSCULAR HGB CONC 33 g/dl (31.0-36.0); MEAN CORPUSCULAR VOLUME 85 fL (82-100); MONOCYTES # (AUTO) 0.5 /CMM (0.1-1.30); MONOCYTES % (AUTO) 8.8 % (2.0-12.0); NEUTROPHILS # (AUTO) 3.6 /CMM (1.8-8.9); PLATELET COUNT (AUTO) 206 /CMM (150-450); RED BLOOD CELL COUNT(AUTO) 4.52 MIL/uL (4.0-5.2); WHITE BLOOD COUNT (AUTO) 5.3 K/uL (4.3-11.0)
[2018-01-16 07:18] LABS: CALCIUM, SERUM 8.6 mg/dL (8.5-10.1); CREATININE 0.4 mg/dL (0.6-1.3); MAGNESIUM 2.1 mg/dL (1.8-2.4); PHOSPHORUS 7.8 mg/dL (2.5-4.9); POTASSIUM 3.8 mmol/L (3.5-5.1)
[2018-01-16 08:00] VITALS: BP 130/75
--- NOTE | 2018-01-16 08:00 | NUR ---
RN NOTES RECEIVED PATIENT IN THE BED ON CONTACT ISOLATION. PATIENT NONVERBAL TRACHEA DEPENDENT. PATIENT EYE OPEN, NO ACUTE RESPIRATORY DISTRESS, V/S STABLE,. SCHEDULED MEDICATION ADMINISTERED VIA G-TUBE, RESIDUAL, AND PLACEMENT CHECKED, HOB KEEP ELEVATED FOR ASPIRATION PRECAUTION. IV ACCESS ON RIGHT WRIST INTACT, ASSIST TURN AND REPOSTION Q 2 HR, NEEDS ATTENDED AND ANTICIPATED, PATIENT ON AIR MATTRESS. CALL LIGHT WITHIN TO REACH CONTINUED MONITORING.
[2018-01-16] MEDS: ACETYLCYSTEINE 10% SOLN 400 MG/4 ML VIAL NEB SCH ×3 (08:09→23:40)
[2018-01-16] MEDS: VALPROIC ACID 250 MG/5 ML UDC GT SCH ×2 (09:37→17:07)
[2018-01-16] MEDS: PANTOPRAZOLE 40 MG VIAL IV SCH (09:37)
[2018-01-16] MEDS: LEVOTHYROXINE SODIUM 50 MCG TABLET GT SCH (09:38)
[2018-01-16] MEDS: LEVETIRACETAM SOL (5 ML) 100 MG/ML UDC GT SCH ×3 (09:38→17:07)
[2018-01-16] MEDS: TOPIRAMATE 25 MG TABLET GT SCH ×2 (09:39→17:08)
[2018-01-16] MEDS: PHENOBARBITAL 30 MG TABLET GT SCH ×2 (09:39→17:08)
[2018-01-16] MEDS: LACTOBACILLUS RHAMNOSUS GG 1 EACH CAP.SPRINK GT SCH ×2 (09:39→17:08)
[2018-01-16] MEDS: PROSOURCE / PROSTAT (PYXIS) 30 ML UDC GT SCH (09:40)
--- NOTE | 2018-01-16 13:00 | NUR ---
RN NOTES PATIENT STABLE, SCHEDULED MEDICATION ADMINISTERED, V/S STABLE, CONTINUED JEVITY 1.2 FEEDING 60 ML/HR, INTACT. FAMILY NEXT TO THE BED. ASSIST TURN AND REPOSTION Q 2 HR. CALL LIGHT WITHIN TO REACH, CONTINUED MONITORING.
[2018-01-16 16:00] VITALS: BP_SYST 134; BP_DIAS 73; BP_DIAS 93
[2018-01-16] MEDS: ACETAMINOPHEN 325 MG TABLET PO PRN ×2 (17:08→22:25)
--- NOTE | 2018-01-16 17:08 | NUR ---
RN NOTES ADMINISTERED TYLENOL FOR T-99.8F PRN PRESCRIBED VIA G-TUBE , CONTINUED MONITORING.
--- NOTE | 2018-01-16 18:20 | NUR ---
RN NOTES RECHECKED T-98.9, PATIENT STABLE, NO ACUTE RESPIRATORY DISTRESS, HOB KEEP ELEVATED, SCHEDULED MEDICATION ADMINISTERED, CONTINUED JEVITY 1.2 GT FEEDING INTACT. ASSIST TURN AND REPOSTION Q 2 HR, CALL LIGHT WITHIN TO REACH. NEEDS ATTENDED AND ANTICIPATED. FAMILY NEXT TO THE BED. ENDORSED ONCOMING NURSE FOR PLAN OF CARE.
[2018-01-16 20:00] VITALS: BP_SYST 106; BP_SYST 109; BP_DIAS 62
--- NOTE | 2018-01-16 20:00 | NUR ---
MS/RN OPENING NOTES RECEIVED PATIENT JERMAINE, ENDORSED BY AM RN. OBTUNDED, APHASIC , ON WILDLIFE PHOTOGRAPHER AEROSOL T PIECE OXYGEN AT 5L, BLE AND BUE CONTRACTED, SKIN WARM TO TOUCH, GTUBE RUNNING, PLACEMENT CHECK WITH NO RESIDUAL, IV SITE ON RIGHT HAND HEPLOCK PATENT,REPOSITON FOR COMFORT EIGILBERT MONITPR
[2018-01-16] MEDS: ENOXAPARIN SODIUM 40 MG/0.4 ML DISP.SYRIN SQ SCH (21:10)
--- NOTE | 2018-01-16 22:25 | NUR ---
MS/RN NOTES TYLENOL 650 MG VIA GTUBE WAS GIVEN FOR PAIN, NOTED GRIMACE AND GUARDING WITH TEAR IN EYES.VITAL SIGNS CHANGE TO PULSE AT 110 WHILE RENDERING CARE AND POSITION CHANGES.WILL MONITOR.
[2018-01-17] MEDS: OXYBUTYNIN CHLORIDE 5 MG TABLET GT SCH ×3 (05:14→20:26)
--- NOTE | 2018-01-17 06:36 | NUR ---
MS/RN NOTES PATIENT PROVIDED CARE, RENDERED ALL NEEDS, REPOSITIONED, KEPT SKIN INTACT AND DRY, PROVIDED SKIN BARRIER PROTECTOR MEPILEX AND ZGUARD FOR SKIN INTEGRITY. SUCTION NEEDED. G- TUBE CHECK, PATENCY AND WITH NO RESIDUAL. OFF LOAD EXTREMITIES. WILL MONITOR. OBTUNDED, NON VERBAL. WILL MONITOR.
[2018-01-17 08:00] VITALS: BP 132/63
--- NOTE | 2018-01-17 08:00 | NUR ---
MS/RN OPENING NOTES RECEIVED PATIENT OBTUNDED, APHASIC , ON COOL AEROSOL T PIECE OXYGEN AT 5L, FIO2 28% .NO SOB.SUCTIONED TRACH AND ORAL SECRETIONS NEEDED.BLE AND BUE CONTRACTED, SKIN WARM TO TOUCH, GTUBE HELD AND RESUMED AT 12NN. PLACEMENT CHECK WITH NO RESIDUAL, IV SITE ON RIGHT HAND HEPLOCK PATENT,REPOSITION FOR COMFORT .WILL MONITOR
[2018-01-17] MEDS: ACETYLCYSTEINE 10% SOLN 400 MG/4 ML VIAL NEB SCH ×2 (08:29→15:11)
[2018-01-17] MEDS: LACTOBACILLUS RHAMNOSUS GG 1 EACH CAP.SPRINK GT SCH ×2 (08:48→17:01)
[2018-01-17] MEDS: TOPIRAMATE 25 MG TABLET GT SCH ×2 (08:48→17:01)
[2018-01-17] MEDS: LEVOTHYROXINE SODIUM 50 MCG TABLET GT SCH (08:48)
[2018-01-17] MEDS: PROSOURCE / PROSTAT (PYXIS) 30 ML UDC GT SCH (08:49)
[2018-01-17] MEDS: PANTOPRAZOLE 40 MG VIAL IV SCH (08:49)
[2018-01-17] MEDS: PHENOBARBITAL 30 MG TABLET GT SCH ×2 (08:49→17:01)
[2018-01-17] MEDS: VALPROIC ACID 250 MG/5 ML UDC GT SCH ×2 (08:49→17:01)
[2018-01-17] MEDS: LEVETIRACETAM SOL (5 ML) 100 MG/ML UDC GT SCH ×3 (08:49→17:01)
[2018-01-17 16:00] VITALS: BP 145/81
--- NOTE | 2018-01-17 18:05 | NUR ---
PT RESTING IN BED WITH NO S/S OF PAIN OR DISTRESS.TOLERATING GT FEEDING WITH NO RESIDUALS NOTED.TURNED EVERY TWO HRS.SUCTIONED ORAL AND TRACH SECRETIONS PRN.ORAL CARE RENDERED.WILL CONTINUE TO MONITOR.
--- NOTE | 2018-01-17 18:10 | NUR ---
RN NOTES RECIVED PATIENT ASLEEP, HOB ELEVATED, ON T-PIECE WITH COOL AEROSOL TOLERATED WELL. PATIENT CALM AND QUIET, NO SIGNS OF DISTRESS AND DISCOMFORT NOTED. GT INTACT WITH ONGOING FEEDING TOLERATED WELL. IV ACCESS ON RIGHT HAND INTACT. KEPT COMFORTABLE AND ATTENDED, WILL SUCTION SECRETIONS PRN. WILL TURN PER PROTOCOL. WILL CONTINUE TO MONITOR PT.
[2018-01-17 20:00] VITALS: BP 126/73
[2018-01-17] MEDS: ENOXAPARIN SODIUM 40 MG/0.4 ML DISP.SYRIN SQ SCH (20:26)
[2018-01-17 22:00] VITALS: BP 126/73
[2018-01-17] MEDS: JEVITY 1.2 CAL 1,000 ML BOTTLE GT SCH (23:28)
[2018-01-18] MEDS: ACETYLCYSTEINE 10% SOLN 400 MG/4 ML VIAL NEB SCH ×4 (00:02→23:19)
[2018-01-18] MEDS: OXYBUTYNIN CHLORIDE 5 MG TABLET GT SCH ×3 (04:41→20:39)
--- NOTE | 2018-01-18 06:24 | NUR ---
RN NOTES PATIENT STABLE OVERNIGHT, VITAL SIGNS STABLE, AFEBRILE. NO SIGNS OF DISTRESS AND DISCOMFORT NOTED. GT INTACT WITH GT FEEDING TOLERATED WELL. SUCTIONED SECRETIONS PRN, TRACH CARE RENDERED. TURNED AND REPOSITIONED PER PROTOCOL. KEPT CLEAN AND DRY. WILL CONTINUE TO MONITOR.
--- NOTE | 2018-01-18 07:35 | NUR ---
MS/RN OPENING NOTE PATIENT IN BED IN STABLE CONDITION. OBTUNDED, OPEN EYES. NO SIGNS OF ACUTE DISTRESS. NO COMPLAIN OF PAIN OR DISCOMFORT. ON COOL AEROSOL WITH FIO2 OF 28%. ON G TUBE FEEDING JEVITY 1.2 @ 60ML/HR. TOLERATING WELL. HOB ELEVATED FOR ASPIRATION PRECAUTION. ALL NEEDS ATTENDED TO. CALL LIGHT WITHIN REACH. WILL CONTINUE TO MONITOR TO ENSURE SAFETY.
[2018-01-18 08:00] VITALS: BP 118/98
--- NOTE | 2018-01-18 08:17 | NUR ---
RT Pt received trach'd and on CA 28%. Pt trach secure and patent. [facility] at [facility]. No respiratory distress noted. Will continue to monitor. Addendum: 01/18/18 at 1025 by VENUS LOMAS RT Amended: Links added.
[2018-01-18] MEDS: LEVOTHYROXINE SODIUM 50 MCG TABLET GT SCH (08:58)
[2018-01-18] MEDS: TOPIRAMATE 25 MG TABLET GT SCH ×2 (08:58→17:02)
[2018-01-18] MEDS: VALPROIC ACID 250 MG/5 ML UDC GT SCH ×2 (08:58→17:02)
[2018-01-18] MEDS: PANTOPRAZOLE 40 MG VIAL IV SCH (08:58)
[2018-01-18] MEDS: PHENOBARBITAL 30 MG TABLET GT SCH ×2 (08:58→17:02)
[2018-01-18] MEDS: LEVETIRACETAM SOL (5 ML) 100 MG/ML UDC GT SCH ×3 (08:59→17:02)
[2018-01-18] MEDS: LACTOBACILLUS RHAMNOSUS GG 1 EACH CAP.SPRINK GT SCH ×2 (08:59→17:02)
[2018-01-18] MEDS: PROSOURCE / PROSTAT (PYXIS) 30 ML UDC GT SCH (09:09)
[2018-01-18 16:00] VITALS: BP 115/59
[2018-01-18] MEDS: ACETAMINOPHEN 325 MG TABLET PO PRN ×2 (17:02→21:11)
--- NOTE | 2018-01-18 18:35 | NUR ---
MS/RN CLOSING NOTE PATIENT IN BED IN STABLE CONDITION. OBTUNDED, NON VERBAL, OPEN EYES. NO SIGNS OF ACUTE DISTRESS. NO COMPLAIN OF PAIN OR DISCOMFORT. ON COOL AEROSOL AT FIO2 28%, PORTEX 7 TRACH. TOLERATING WELL. ON CONTACT ISOLATION FOR ESBL URINE AND SPUTUM. ON GTUBE FEEDING GLUCERNA 1.2 @ 60ML/HR TOLERATING WELL. HOB ELEVATED AT ALL TIMES FOR ASPIRATION PRECAUTION. ALL NEEDS ATTENDED TO. CALL LIGHT WITHIN REACH. WILL ENDORSE TO NEXT SHIFT FOR CONTINUITY OF CARE.
--- NOTE | 2018-01-18 19:20 | NUR ---
RN NOTES: RECEIVED LYING ON BED,ISOLATION PRECAUTION OBSERVED FOR SPUTUM,ESBL +URINE, OBSTUNDED AND NON VERBAL,OPEN EYES, TRACH ONSITE PORTEX#7 ON COOL AEROSOL FI02 OF 28%,NO SIGN OR RESPIRATORY DISTRESS OR SOB,G-TUBE IN SITE WITH FEEDING ON GOING OF JEVITY 1.2 AT 44ML/HR, FEEDING TOLERATED WELL.FALL, SAFETY AND ASPIRATION PRECAUTION OBSERVED,BED LOW AND LOCKED, CALL LIGHT WITHIN EASY REACH,ON CLOSE VISUAL CHECK.PER ENDORSEMENT FOR POSSIBLE DISCHARGE ON SUNDAY.
--- NOTE | 2018-01-18 19:43 | NUR ---
RN NOTES: TURNING AND REPOSITIONING DONE, ORAL AND TRACH SUCTION DONE, NOTICE THERE IS STILL A LOT OF SECRETION, RT(RICARDO) NOTIFIED, RT ASSESSED THE PATIENT IMMEDIATELY. PATIENT LOOKS MORE COMFORTABLE.[id number].SPO2-97%.
[2018-01-18 20:00] VITALS: BP 136/77
[2018-01-18] MEDS: JEVITY 1.2 CAL 1,000 ML BOTTLE GT SCH (20:37)
[2018-01-18] MEDS: ENOXAPARIN SODIUM 40 MG/0.4 ML DISP.SYRIN SQ SCH (20:39)
--- NOTE | 2018-01-18 20:40 | NUR ---
KENYON NOTES: PEG FEED FINISHED AT 2036, NEW BOTTLE OF JEVITY 1.2 AT 60 ML/HR STARTED VIA FEEDING PUMP, TOLERATED.
--- NOTE | 2018-01-18 22:30 | NUR ---
RN NOTES: AT 2110 AFTER REPOSITIONING AND SUCTIONING , NOTICED PATIENT GRIMACE AND LOOKS UNCOMFORTABLE, TYLENOL PRN FOR PAIN GIVEN, AFTER AN HOUR PATIENT LOOKS MORE COMFORTABLE AND TAKING A NAP IN BETWEEN, DAUGHTER CAME TO VISIT AND NOTIFIED.PATIENT IS RESTING COMFORTABLY [id number]% [id number].
[2018-01-19] MEDS: OXYBUTYNIN CHLORIDE 5 MG TABLET GT SCH ×3 (04:17→21:13)
--- NOTE | 2018-01-19 05:17 | NUR ---
RN NOTES: MORNING CARE DONE, SPONGE BATH RENDERED,SKIN CARE DONE,REPOSITIONED, SUCTIONED,KEPT COMFORTABLE IN BED.ISOLATION PRECAUTION OBSERVED.
--- NOTE | 2018-01-19 06:46 | NUR ---
RN NOTES: REPOSITIONED,FALL,SAFETY, ASPIRATION AND ISOLATION PRECAUTION OBSERVED, ENDORSED FOR CONTINUITY OF CARE.
[2018-01-19] MEDS: ACETYLCYSTEINE 10% SOLN 400 MG/4 ML VIAL NEB SCH ×3 (07:33→22:59)
--- NOTE | 2018-01-19 07:36 | NUR ---
MS/RN OPENING NOTE PATIENT IN BED IN STABLE CONDITION. OBTUNDED, NON VERBAL, OPEN EYES. NO SIGNS OF ACUTE DISTRESS. NO COMPLAIN OF PAIN OR DISCOMFORT. TRACH DEPENDENT PORTEX 7, COOL AEROSOL WITH FIO2 OF 28%. TOLERATING WELL. CONTACT ISOLATION PRECAUTION FOR ESBL URINE AND SPUTUM. ON G TUBE FEEDING JEVITY 1.2 @ 60MLS/HR. TOLERATING WELL. HOB ELEVATED AT ALL TIMES FOR ASPIRATION PRECAUTION. ALL NEEDS ATTENDED TO. CALL LIGHT WITHIN REACH. WILL CONTINUE TO MONITOR TO ENSURE SAFETY.
[2018-01-19 08:00] VITALS: BP 146/81
[2018-01-19] MEDS: LEVOTHYROXINE SODIUM 50 MCG TABLET GT SCH (08:40)
[2018-01-19] MEDS: TOPIRAMATE 25 MG TABLET GT SCH ×2 (08:40→16:49)
[2018-01-19] MEDS: LEVETIRACETAM SOL (5 ML) 100 MG/ML UDC GT SCH ×3 (08:40→16:49)
[2018-01-19] MEDS: PANTOPRAZOLE 40 MG VIAL IV SCH (08:40)
[2018-01-19] MEDS: PHENOBARBITAL 30 MG TABLET GT SCH ×2 (08:40→16:49)
[2018-01-19] MEDS: LACTOBACILLUS RHAMNOSUS GG 1 EACH CAP.SPRINK GT SCH ×2 (08:40→16:49)
[2018-01-19] MEDS: VALPROIC ACID 250 MG/5 ML UDC GT SCH ×2 (08:40→16:49)
[2018-01-19] MEDS: PROSOURCE / PROSTAT (PYXIS) 30 ML UDC GT SCH (10:02)
--- NOTE | 2018-01-19 12:31 | NUR ---
MS/RN PATIENT ON SPECIAL MATTRESS, NOTED WITH ONE SHEET AND ONE KATHERINE UNDER. DAUGHTER AT BEDSIDE SLOANE PREFERRED PATIENT TO BE ON DIAPERS WELL. EXPLAINED TO DAUGHTER THE BENEFITS OF SPECIAL MATTRESS AND HAVING A DIAPER AND KATHERINE PLUS SHEET ON TAKES AWAY THE THERAPEUTIC EFFECT OF USING SPECIAL MATTRESS. PER DAUGHTER SLOANE, "I DON'T CARE WHAT HAPPENS I NEED THE DIAPER ON AND DIAPER STAYS ON NO MATTER WHAT." MD NOTIFIED. WILL CONTINUE TO MONITOR FOR FURTHER CHANGES.
[2018-01-19] MEDS: ALBUTEROL FS 2.5 MG/3 ML VIAL.NEB NEB PRN (15:14)
[2018-01-19 16:00] VITALS: BP 113/61
[2018-01-19] MEDS: ACETAMINOPHEN 325 MG TABLET PO PRN (16:49)
--- NOTE | 2018-01-19 18:09 | NUR ---
MS/RN CLOSING NOTE PATIENT IN BED IN STABLE CONDITION. OBTUNDED, NON VERBAL, OPEN EYES. NO SIGNS OF ACUTE DISTRESS. NO COMPLAIN OF PAIN OR DISCOMFORT. TRACH DEPENDENT ON COOL AEROSOL WITH FIO2 28%. TOLERATED WELL. ON GTUBE FEEDING JEVITY 1.2 @ 60MLS/HR TOLERATING WELL. HOB ELEVATED AT ALL TIMES FOR ASPIRATION PRECAUTION. ALL NEEDS ATTENDED TO. CALL LIGHT WITHIN REACH. WILL ENDORSE TO NEXT SHIFT FOR CONTINUITY OF CARE.
--- NOTE | 2018-01-19 19:30 | NUR ---
MS/RN RECEIVE PATIENT EYES CLOSED, BREATHING EVEN AND UNLABORED, APPEAR COMFORTABLE, TRACH COLLAR, GT FEEDING INFUSING, NO RESIDUAL NOTE, HOB ELEVATED. WILL MONITOR.
--- NOTE | 2018-01-19 19:42 | NUR ---
PT RCVD COOL AEROSOL 28% 5L. SUCTIONED PALE YELLOW THICK SECRETIONS. NO RESPIRATORY DISTRESS NOTED AT THIS TIME.
[2018-01-19 20:00] VITALS: BP 113/62
[2018-01-20] MEDS: JEVITY 1.2 CAL 1,000 ML BOTTLE GT SCH (03:08)
--- NOTE | 2018-01-20 04:59 | NUR ---
MS/RN MORNING CARE WAS DONE, TOTAL LINEN CHANGED RENDERED, TRACH CARE DONE ASEPTICALLY, TOLERATED WELL, REPOSITIONED TO COMFORT, WILL CONTINUE TO MONITOR.
[2018-01-20] MEDS: OXYBUTYNIN CHLORIDE 5 MG TABLET GT SCH ×3 (05:41→20:38)
--- NOTE | 2018-01-20 06:11 | NUR ---
MS/RN PATIENT APPEAR SLEEPING, APPEAR COMFORTABLE, BREATHING EVEN AND UNLABORED, HOB ELEVATED, GT FEEDING INFUSING, ALL NEEDS ATTENDED AT THIS TIME, WILL CONTINUE TO MONITOR.
[2018-01-20] MEDS: ACETYLCYSTEINE 10% SOLN 400 MG/4 ML VIAL NEB SCH ×3 (07:27→23:30)
--- NOTE | 2018-01-20 07:52 | NUR ---
MS RN OPENING NOTE RECEIVED PATIENT AWAKE IN BED LOCKED IN LOWEST POSITION WITH SIDERAILS UP FOR SAFETY. ON ISOLATION FOR ESBL KLEBSIELLA PNEUMONIAE SPUTUM, ISOLATION PRECAUTIONS IMPLEMENTED. PATIENT IS OBTUNDED AND NON-VERBAL. TRACH PRESENT PORTEX #7 ON COOL AEROSOL, SUCTION NEEDED. AND TRACH CARE TO BE PROVIDED THROUGHOUT SHIFT. HAS WOUND TREATMENT TO BE DONE. G-TUBE PRESENT WITH TUBE FEEDING CURRENTLY RUNNING AT 60 ML/HR TOLERATING WELL NO RESIDUAL. TO BE OFF AT 8 AM AND BACK ON AT 12 NOON. RIGHT HAND 24G IV INTACT AND PATENT NO REDNESS OR SWELLING NOTED. NO LABS THIS MORNING. WILL CONTINUE CONTINUITY OF CARE
[2018-01-20 08:00] VITALS: BP 150/94
--- NOTE | 2018-01-20 08:00 | NUR ---
MS RN NOTE G-TUBE FEEDING TURNED OFF AT THIS TIME PER ORDER
[2018-01-20] MEDS: LEVOTHYROXINE SODIUM 50 MCG TABLET GT SCH (09:03)
[2018-01-20] MEDS: VALPROIC ACID 250 MG/5 ML UDC GT SCH ×2 (09:03→16:52)
[2018-01-20] MEDS: PHENOBARBITAL 30 MG TABLET GT SCH ×2 (09:03→16:53)
[2018-01-20] MEDS: PANTOPRAZOLE 40 MG VIAL IV SCH (09:03)
[2018-01-20] MEDS: LEVETIRACETAM SOL (5 ML) 100 MG/ML UDC GT SCH ×3 (09:03→16:52)
[2018-01-20] MEDS: LACTOBACILLUS RHAMNOSUS GG 1 EACH CAP.SPRINK GT SCH ×2 (09:03→16:53)
[2018-01-20] MEDS: TOPIRAMATE 25 MG TABLET GT SCH ×2 (09:03→16:53)
[2018-01-20] MEDS: PROSOURCE / PROSTAT (PYXIS) 30 ML UDC GT SCH (09:22)
--- NOTE | 2018-01-20 12:00 | NUR ---
MS RN NOTE G-TUBE FEEDING RESUMED AT THIS TIME. G-TUBE FLUSHED WITH 200CC PRIOR TO STARTING FEEDING. WILL MONITOR FOR RESIDUAL
[2018-01-20 16:00] VITALS: BP 151/72
--- NOTE | 2018-01-20 16:20 | NUR ---
MS RN NOTE TOUCH UP EDGER NOTIFIED ME OF PATIENT HAVING 100.2 TEMPERATURE. COOLING MEASURES STARTED & ROOM COOLED DOWN. WILL REASSESS AGAIN 30 MIN FOR EFFECTIVENESS
[2018-01-20] MEDS ORDERED: ACETAMINOPHEN 650 MG/20.3 ML UDC GT PRN (16:30)
--- NOTE | 2018-01-20 17:02 | NUR ---
MS RN NOTE PRN TYLENOL 650 MG VIA GTUBE GIVEN FOR 100.2 FEVER. COOLING MEASURES OFFERED AT THIS TIME WELL
--- NOTE | 2018-01-20 18:38 | NUR ---
MS RN CLOSING NOTE PATIENT AWAKE IN BED LOCKED IN LOWEST POSITION AT THIS TIME. NO FACIAL GRIMACING NOTED FOR PAIN. NO SOB OR DISTRESS NOTED ON ROOM AIR TOLERATING WELL. TRACH PRESENT ON COOL AEROSOL, SUCTION NEEDED. PORTEX #7. IV INTACT AND PATENT NO REDNESS OR SWELLING NOTED, FLUSHES WELL. G-TUBE INTACT AND PATENT, FLUSHES WELL NO RESIDUAL NOTED. G TUBE FEEDING RUNNING AT 60 ML/HR. ALL DUE MEDICATIONS GIVEN ORDERED. ALL NURSING CARE NEEDS ATTENDED TO NEEDED. ON ISOLATION PRECAUTIONS AT THIS TIME. HAD 3 BOWEL MOVEMENTS, SOFT. TURNED AND REPOSITIONED Q2H AND NEEDED. WILL ENDORSE TO COOK STARCH NURSE FOR JERMAINE
--- NOTE | 2018-01-20 19:20 | NUR ---
RN NOTES RECEIVED PT IN BED, ASLEEP BUT AROUSABLE BY TACTILE STIMULI, PT NOTED TO BE RECEIVING O2 VIA TRACH ON COOL AEROSOL, O2 SAT @ 98% WITH HEART RATE @ 104 BPM. ALL PATIENT'S NEEDS ATTENDED TO AT THIS TIME. PT RECEIVING GTF ORDERED. ALL PATIENT'S NEEDS ATTENDED TO AT THIS TIME, WILL CONTINUE TO MONITOR PT.
[2018-01-20 20:00] VITALS: BP 117/79
[2018-01-21] MEDS: JEVITY 1.2 CAL 1,000 ML BOTTLE GT SCH (03:25)
[2018-01-21] MEDS: OXYBUTYNIN CHLORIDE 5 MG TABLET GT SCH ×2 (05:10→12:47)
--- NOTE | 2018-01-21 06:45 | NUR ---
RN CLOSING NOTES PATIENT IN BED, OBTUNDED, NOTED TO HAVE SLEPT INTERMITTENTLY THROUGHOUT THE SHIFT. ALL PATIENT'S NEEDS ATTENDED TO. GTF ON AND INFUSING WELL ORDERED. NO RESIDUAL NOTED. ALL PATIENT'S NEEDS ATTENDED TO. KEPT SAFE AND DRY, CLEAN AND COMFORTABLE. TURNED AND REPOSITIONED Q2 HOURS. WILL ENDORSE TO AM SHIFT NURSE FOR CONTINUITY OF CARE.
--- NOTE | 2018-01-21 07:30 | NUR ---
MS RN OPENING NOTE RECEIVED PATIENT AWAKE IN BED LOCKED IN LOWEST POSITION WITH SIDERAILS UP FOR SAFETY. ON ISOLATION FOR ESBL KLEBSIELLA PNEUMONIAE SPUTUM, ISOLATION PRECAUTIONS IMPLEMENTED. PATIENT IS OBTUNDED AND NON-VERBAL. TRACH PRESENT PORTEX #7 ON COOL AEROSOL, WILL SUCTION NEEDED AND HAS BREATHING TX WITH RT. TRACH CARE TO BE PROVIDED. WOUND TREATMENT TO BE DONE. G-TUBE PRESENT WITH TUBE FEEDING CURRENTLY RUNNING AT 60 ML/HR TOLERATING WELL NO RESIDUAL. TO BE OFF AT 8 AM AND BACK ON AT 12 NOON. RIGHT HAND 24G IV INTACT AND PATENT NO REDNESS OR SWELLING NOTED. NO LABS THIS MORNING. POSSIBLE DISCHARGE THIS AM AND WILL CONTINUE CARE
[2018-01-21 08:00] VITALS: BP 130/79
--- NOTE | 2018-01-21 08:00 | NUR ---
MS RN NOTE G-TUBE FEEDING TURNED OFF. NO RESIDUAL NOTED. TO RESUME AT 12 NOON
[2018-01-21] MEDS: ACETYLCYSTEINE 10% SOLN 400 MG/4 ML VIAL NEB SCH ×2 (08:19→16:17)
[2018-01-21] MEDS: VALPROIC ACID 250 MG/5 ML UDC GT SCH ×2 (08:33→16:27)
[2018-01-21] MEDS: PANTOPRAZOLE 40 MG VIAL IV SCH (08:33)
[2018-01-21] MEDS: LEVETIRACETAM SOL (5 ML) 100 MG/ML UDC GT SCH ×3 (08:33→16:27)
[2018-01-21] MEDS: TOPIRAMATE 25 MG TABLET GT SCH ×2 (08:33→16:27)
[2018-01-21] MEDS: LACTOBACILLUS RHAMNOSUS GG 1 EACH CAP.SPRINK GT SCH ×2 (08:33→16:27)
[2018-01-21] MEDS: LEVOTHYROXINE SODIUM 50 MCG TABLET GT SCH (08:33)
[2018-01-21] MEDS: PHENOBARBITAL 30 MG TABLET GT SCH ×2 (08:33→16:27)
[2018-01-21] MEDS: PROSOURCE / PROSTAT (PYXIS) 30 ML UDC GT SCH (08:34)
--- NOTE | 2018-01-21 12:00 | NUR ---
MS RN NOTE G-TUBE FEEDING TURNED BACK ON. FLUSHED PRIOR TO FEEDING. WILL CONTINUE TO MONITOR
--- NOTE | 2018-01-21 15:47 | NUR ---
MS [facility] NOTE CALLED [facility] SPOKE WITH KENYON ARDON. RN AT [facility] MENTIONED THEY DID NOT KNOW ABOUT PATIENT TRANSFER AND THEY WOULD CALL THEIR AIRPORT OPERATIONS MANAGER AND FIND OUT THE PLAN. NOTIFIED [facility] CASE MANAGEMENT Addendum: 01/21/18 at 1613 by CHIKIS SHARP RN SPOKE WITH MARGI PART OF [facility] TEAM AND NOTIFIED HIM ABOUT SITUATION OF RN NOT WANTING TO RECEIVE REPORT FOR PATIENT TRANSFER. WILL CALL BACK IN 15 MINS
[2018-01-21 16:00] VITALS: BP 121/73
--- NOTE | 2018-01-21 16:49 | NUR ---
MS RN NOTE GAVE REPORT TO KENYON ARDON AT [facility]. GAVE ALL DISCHARGE INSTRUCTIONS AND WOUND TREATMENT TO RN. AWAITING FOR AMBULANCE TRANSPORTATION
--- NOTE | 2018-01-21 17:29 | NUR ---
COMPUTER GAME PROGRAMMER NOTE PATIENT DISCHARGED IN STABLE CONDITION VIA AMBULANCE. DISCHARGE INSTRUCTIONS GIVEN TO KENYON ARDON AT [facility]. PER KENYON ARDON TO LEAVE IV IN PLACE FOR TRANSFER. ALL DUE MEDICATIONS GIVEN ORDERED. ALL NURSING CARE NEEDS ATTENDED TO NEEDED. NON-VERBAL, OBTUNDED HAS TRACH ON COOL AEROSOL PORTEX #7. ON ISOLATION FOR ESBL PNA SPUTUM. WOUND PICTURES DOCUMENTED AND PLACED IN CHART. G-TUBE IN PLACE AND FLUSHES WELL. DISCHARGE INSTRUCTIONS GIVEN TO DAUGHTER AT BEDSIDE, DAUGHTER ABLE TO RETURN TEACH BACK. LEFT VIA AMBULANCE WITH EMT & RT
== END 2018-01-21 17:51 | DRG 177 ==
LOC: ER 12:10 → TELE 15:11 → MED 12-20 08:41 → MEDSG2 01-01 23:16 → MED 01-11 11:00
PROVIDERS: ADMIT Nurse Practitioner Acute Care; ATTEND Nurse Practitioner Acute Care
DX: J15.0 Pneumonia due to Klebsiella pneumoniae (principal); R53.2 Functional quadriplegia; J96.10 Chronic respiratory failure, unspecified whether with hypoxia or hypercapnia; N39.0 Urinary tract infection, site not specified; G93.49 Other encephalopathy; G93.1 Anoxic brain damage, not elsewhere classified; D68.59 Other primary thrombophilia; I42.9 Cardiomyopathy, unspecified; J98.11 Atelectasis; J15.6 Pneumonia due to other Gram-negative bacteria; R13.10 Dysphagia, unspecified; Z93.0 Tracheostomy status; Z93.1 Gastrostomy status; K21.9 Gastro-esophageal reflux disease without esophagitis; Z87.820 Personal history of traumatic brain injury; Z86.74 Personal history of sudden cardiac arrest; G40.909 Epilepsy, unspecified, not intractable, without status epilepticus; I10 Essential (primary) hypertension; E78.5 Hyperlipidemia, unspecified; E03.9 Hypothyroidism, unspecified; R73.9 Hyperglycemia, unspecified; Y95 Nosocomial condition; Z74.09 Other reduced mobility
CPT/HCPCS: 31720; 36415; 71045-TC; 80048-TC; 80053-TC; 80061-TC; 80076-TC; 80184; 80202-TC; 81000-TC; 83605-TC; 83735-TC; 84100-TC; 84484-TC; 85025-TC; 85730-TC; 87040-TC; 87070-TC; 87081-TC; 87086-TC; 87186-TC; 87400; 94003-TC; 94640-TC; 94760-TC; 94762-TC; A4216; A4606; A4623; A6402; A7526; C9113; G0378; J1650; J1953; J2060; J2185; J2543; J3370; J3490; J7030; J7060; Z7610